=== PATIENT | female | born 1950 | race African-American/Black ===

== ENCOUNTER 2017-08-29 09:00 | Outpatient (CLI) | payer MEDICARE | END 2017-08-29 09:01 | disposition home or self-care (01) | LOC: BICMAMMO 09:00 | PROVIDERS: ATTEND Internal Medicine | DX: Z12.31 Encounter for screening mammogram for malignant neoplasm of breast (principal) | CPT/HCPCS: 77063; 77080; G0202; 77067 ==

== ENCOUNTER 2017-09-10 07:08 | Outpatient (CLI) | payer MEDICARE | END 2017-09-10 07:09 | disposition home or self-care (01) | LOC: BICMAMMO 07:08 | PROVIDERS: ATTEND Internal Medicine | DX: R92.2 Inconclusive mammogram (principal) | CPT/HCPCS: G0206; G0279 ==

== ENCOUNTER 2018-04-06 15:46 | Emergency (ER) | payer MEDICARE ==
[2018-04-06 16:19] LABS: #Basophils 0.1 thou/uL (0.0-0.2); #Eosinphils 0.4 thou/uL (0.0-0.7); #Monocytes 0.7 thou/uL (0.11-0.59); #Neutrophils 4.8 thou/uL (1.40-6.50); %Basophils 1.1 % (0.0-1.0); %Eosinophils 4.6 % (0.0-10.0); %Lymphocytes 25.5 % (21.0-51.0); %Monocytes 8.5 % (0.0-10.0); %Neutrophils 60.3 % (42.0-75.0); Hemoglobin 8.1 g/dL (12.0-16.0); Mean Corpuscular HGB CONC 31.7 g/dL (32.0-36.0); Mean Corpuscular Hemoglobin 24.4 pg (27.0-31.0); Mean Corpuscular Volume 77.2 fL (78.0-98.0); Mean Platelet Volume 7.9 fL (7.4-10.4); Platelet Count 413 thou/uL (130-400); RBC Distribution Width 18.6 % (11.5-14.5); White Blood Cell (WBC) Count 7.9 thou/uL (4.8-10.8)
[2018-04-06 16:37] LABS: ALT (SGPT) 8 U/L (8-55); AST (SGOT) 12 U/L (5-34); Alkaline Phosphatase 96 U/L (40-150); Anion Gap 16 mmol/L (10-20); BUN (Urea Nitrogen) 27 mg/dL (9.8-20.1); Bilirubin, Total 0.3 mg/dL (0.2-1.2); CK (CPK) 41 U/L (29-168); Calc. Creatinine Clearance 0 mL/min (70-130); Calcium 9.5 mg/dL (7.8-10.44); Carbon Dioxide 25 mmol/L (23-31); Chloride 99 mmol/L (98-107); Estimated GFR-MDRD 43; Globulin 3.5 g/dL (2.4-3.5); Glucose 318 mg/dL (80-115); Potassium 3.8 mmol/L (3.5-5.1); Protein, Total 7.5 g/dL (6.0-8.3); Sodium 136 mmol/L (136-145)
--- NOTE | 2018-04-06 16:39 | RAD ---
AP VIEW CHEST: 04/06/2018 HISTORY: Dizziness. Syncope. COMPARISON: 02/20/2015 FINDINGS: AP view chest demonstrates the lungs to be well aerated. No evidence of acute intrathoracic abnormal ity is seen. No evidence of effusions, pneumonia, or pneumothorax is seen. Previously noted pulmonary vascular congestion has resolved. IMPRESSION: Unremarkable anterior-posterior view chest. POS: [facility]
[2018-04-06 16:41] LABS: CKMB 0.8 ng/mL (0-6.6)
--- NOTE | 2018-04-06 18:11 | MRI ---
NONCONTRAST ENHANCED MRI BRAIN: HISTORY: Intermittent dizziness for one month. TECHNIQUE: We have been asked to perform an emergent, after-hours MRI of the brain. FINDINGS: Multiplanar, multisequence, noncontrast enhanced MR images of the brain demonstrate diffuse cortical atrophy and deep white matter ischemic changes. Numerous small areas of lacunar infarction are seen. The calvarium is unremarkable. No evidence of areas of diffusion restriction seen. No evidence of intraaxial or extraaxial mass lesion seen. Normal flow voids seen in the major intracranial vessels. The visualized portions of the parotid gland are unremarkable. There is an approximately 4.7 mm area of T2 signal increase seen in the posterior nasopharynx, compat ible with a Tornwaldt cyst. Some mild left frontal, left ethmoid, and bilateral sphenoid sinus mucosal thickening is seen. IMPRESSION: Cortical atrophy and deep white matter ischemic changes. POS: [facility]
[2018-04-06 18:53] LABS: Bilirubin Negative (Negative); Blood, Urine Negative (Negative); Clarity CLOUDY (Clear); Glucose, Urine (Dipstick) 250 mg/dL (Negative); Leukocyte Small (Negative); Nitrite Negative (Negative); Protein, Urine (Dipstick) 30 mg/dL (Neg-Trace); Specific Gravity, Urine 1.018 (1.002-1.036)
[2018-04-06 18:55] LABS: Bacteria/HPF None Seen HPF (None Seen); Hyaline Casts/LPF 7-10 HYALINE CAST LPF (0-3 Hyaline); Pathc Cast-AUWi Flag 2.32 (0-2.49); RBC/HPF 0-3 HPF (0-3); WBC/HPF 0-3 HPF (0-3)
== END 2018-04-06 19:50 | disposition home or self-care (01) ==
LOC: ERS 15:46
DX: R42 Dizziness and giddiness (principal); I11.0 Hypertensive heart disease with heart failure; I50.9 Heart failure, unspecified; E11.9 Type 2 diabetes mellitus without complications; E78.5 Hyperlipidemia, unspecified; F41.9 Anxiety disorder, unspecified; F17.210 Nicotine dependence, cigarettes, uncomplicated; M19.90 Unspecified osteoarthritis, unspecified site; Z79.82 Long term (current) use of aspirin; Z79.84 Long term (current) use of oral hypoglycemic drugs; Z79.899 Other long term (current) drug therapy
CPT/HCPCS: 70551; 71045; 80053; 81003; 81015; 82274; 82550; 82553; 83880; 84484; 85025; 93005

== ENCOUNTER 2018-09-03 12:20 | Outpatient (CLI) | payer MEDICARE ==
--- NOTE | 2018-09-03 14:45 | MRI ---
MRI LUMBAR SPINE WITHOUT CONTRAST: HISTORY: M48.062, spinal stenosis with neural claudication. Low back pain. COMPARISON: MRI from 2007. FINDINGS: There is a T2 hyperintense focus in the superior pole left kidney, likely a cyst, although it is inco mpletely evaluated. The aortic contour is nonaneurysmal. No retroperitoneal adenopathy. No marrow infiltrative signal. The conus medullaris terminates near the superior end plate of L1. Levels are as follows: L1-2: Normal disk. No neural foraminal or spinal canal narrowing. L2-3: Mild disk desiccation. Low-grade circumferential disk bulge. Mild facet arthropathy. There are effusions of both facet joints. Bilateral subforaminal posterior disk-osteophyte complexes cause moderate bilateral neural foraminal narrowing. No significant spinal canal narrowing. L3-4: Mild disk desiccation. Low-grade circumferential disk bulge. Mild hypertrophic facet degener ative changes. There is moderate bilateral neural foraminal narrowing. There is mild ligamentum fla vum hypertrophy. L4-5: Low-grade circumferential disk bulge. Bilateral subforaminal and posterior disk-osteophyte co mplexes. Moderate hypertrophic facet arthropathy. Moderate bilateral neural foraminal narrowing. T here is abutment above both traversing nerve roots. Mild ligamentum flavum hypertrophy. The spinal canal is narrowed to approximately 5 m with crowding of the nerve roots. L5-S1: There is a central linear fissure posteriorly. Moderate facet arthropathy. There is asymmet lee right paracentral lateral recess and extraarticular posterior disk-osteophyte complex. Moderate right and mild left-sided neural foraminal narrowing. IMPRESSION: Mild to moderate spondylosis as described above, worse in the lower lumbar spine. There is also some crowding of the nerve roots and spinal canal narrowing at L4-5. POS: [facility]
== END 2018-09-03 12:21 | disposition home or self-care (01) ==
LOC: BICMRI 12:20
PROVIDERS: ATTEND Nurse Practitioner Family
DX: M48.062 Spinal stenosis, lumbar region with neurogenic claudication (principal); M47.816 Spondylosis without myelopathy or radiculopathy, lumbar region
CPT/HCPCS: 72148

== ENCOUNTER 2019-03-05 12:18 | Outpatient (CLI) | payer MEDICARE ==
--- NOTE | 2019-03-05 13:31 | CT ---
CT HEAD WITHOUT CONTRAST: Date: 03/05/19 Multiple axial tomograms obtained through head without IV enhancement. INDICATION: Trauma. Subdural hematoma. Comparison made to MRI brain dated 04/06/18 and a prior head CT of 10/01/05. FINDINGS: Mild cortical volume loss. There is mild to moderate chronic ischemic white matter change. No evidenc e of intracranial hemorrhage identified. No evidence of subdural hematoma identified. There is opacification of the right sphenoid sinus, which has a similar appearance to the 2006 exam. The other paranasal sinuses are well aerated. IMPRESSION: 1. No acute intracranial process. 2. Opacification of right sphenoid sinus, which was present in 2006. POS: [facility]
== END 2019-03-05 12:19 | disposition home or self-care (01) ==
LOC: CT 12:18
PROVIDERS: ATTEND Neurological Surgery
DX: S06.5X0D Traumatic subdural hemorrhage without loss of consciousness, subsequent encounter (principal); J32.3 Chronic sphenoidal sinusitis
CPT/HCPCS: 70450

== ENCOUNTER 2019-03-24 15:24 | Inpatient (IN) | payer MEDICARE ==
[2019-03-24] MEDS ORDERED: Furosemide 40 MG/4 ML VIAL ONE (15:44)
--- NOTE | 2019-03-24 16:03 | RAD ---
Exam: Chest one view HISTORY:Dyspnea Comparison: 04/06/2018 FINDINGS: Cardiac silhouette:Cardiomegaly. Pulmonary vessels: Normal Costophrenic angles: Clear LUNGS: Patchy interstitial opacities in the right lung base. Pneumothorax: None Osseous abnormalities: None IMPRESSION: 1. Cardiomegaly. Patchy interstitial opacities in the right lung base. Correlate for volume overload/ edema.
[2019-03-24 16:07] LABS: #Eosinphils 0.3 thou/uL (0.0-0.7); #Lymphocytes 1.4 thou/uL (1.20-3.40); #Monocytes 0.4 thou/uL (0.11-0.59); #Neutrophils 4.8 thou/uL (1.40-6.50); %Basophils 0.3 % (0.0-1.0); %Eosinophils 4.6 % (0.0-10.0); %Lymphocytes 19.7 % (21.0-51.0); %Monocytes 6.4 % (0.0-10.0); %Neutrophils 69.1 % (42.0-75.0); Hemoglobin 11.3 g/dL (12.0-16.0); Mean Corpuscular HGB CONC 30.6 g/dL (32.0-36.0); Mean Corpuscular Hemoglobin 26.7 pg (27.0-31.0); Mean Corpuscular Volume 87.5 fL (78.0-98.0); Mean Platelet Volume 9.3 fL (7.4-10.4); Platelet Count 268 thou/uL (130-400); RBC Distribution Width 16.2 % (11.5-14.5); Red Blood Cell (RBC) Count 4.22 mill/uL (4.20-5.40); White Blood Cell (WBC) Count 6.9 thou/uL (4.8-10.8)
[2019-03-24 16:29] LABS: ALT (SGPT) 12 U/L (8-55); AST (SGOT) 19 U/L (5-34); Albumin 3.2 g/dL (3.4-4.8); Alkaline Phosphatase 142 U/L (40-150); Anion Gap 13 mmol/L (10-20); BUN (Urea Nitrogen) 22 mg/dL (9.8-20.1); Bilirubin, Total 0.3 mg/dL (0.2-1.2); Calc. Creatinine Clearance 0 mL/min (70-130); Calcium 8.8 mg/dL (7.8-10.44); Carbon Dioxide 29 mmol/L (23-31); Chloride 106 mmol/L (98-107); Estimated GFR-MDRD 49; Globulin 3.4 g/dL (2.4-3.5); Glucose 273 mg/dL (80-115); Potassium 5.1 mmol/L (3.5-5.1); Protein, Total 6.6 g/dL (6.0-8.3); Sodium 143 mmol/L (136-145)
[2019-03-24] MEDS ORDERED: Aspirin Chewable 81 MG TAB ONE (17:24)
[2019-03-24] MEDS ORDERED: Senokot S 8.6-50 MG TAB PO PRN (18:40)
[2019-03-24] MEDS ORDERED: Acetaminophen 325 MG TAB PO PRN (18:40)
[2019-03-24] MEDS ORDERED: Dextrose 5% in Water 1,000 ML IV PRN (18:42)
[2019-03-24] MEDS ORDERED: Dextrose 50% Abboject 50 ML SYRINGE SLOW IVP PRN (18:42)
[2019-03-24] MEDS ORDERED: ALPRAZolam 0.25 MG TAB PO PRN (18:51)
[2019-03-24 19:38] LABS: Troponin I 0.014 ng/mL (< 0.028)
[2019-03-24 21:31] LABS: Troponin I 0.016 ng/mL (< 0.028)
[2019-03-24 21:39] VITALS: BMI 30.1
[2019-03-24] MEDS: HumaLOG 300 UNITS/3 ML VIAL SC PRN (22:15)
[2019-03-24] MEDS: Heparin 5,000 UNITS/ML VIAL SC SCH (22:16)
[2019-03-24] MEDS: Rosuvastatin 20 MG TAB PO SCH (22:17)
--- NOTE | 2019-03-25 02:02 | HP ---
CHIEF COMPLAINT: Shortness of breath. HISTORY OF PRESENT ILLNESS: The patient is a 68-year-old female with a past medical history of systolic heart failure, hypertension and diabetes, who presents to the hospital with shortness of breath for the past few days. The patient states that she has actually been short of breath for the past couple of months. However, she woke up this morning, felt very short of breath and hoped that her shortness of breath would improve. However, it did not, so she came into the ER for further evaluation. She denies any chest pain or chest pressure. She did have some nausea, but no vomiting. She states that she also noticed increased lower extremity swelling for the past 3 or 4 days. The patient states that she ran out of her medications, especially her diuretic 3 or 4 days ago. She tried to call her PCP, however, she had to make an appointment and get more testing before she would get a refill. The patient also has been eating out quite a bit. The patient had a fall about a couple of months ago and this was a mechanical fall and she was taken to [facility] and was watched over 40 hours and then was discharged home. The patient stated that she had a brain bleed, questionable I am not really sure. However, she did state that she did see Dr. Sam for this. PAST MEDICAL HISTORY: 1. Cardiomyopathy. 2. Hypertension. 3. Diabetes. 4. High cholesterolemia. 5. Mild coronary artery disease. PAST SURGICAL HISTORY: She has had a hysterectomy, partial. ALLERGIES: SHE IS ALLERGIC TO SULFA DRUGS. MEDICATIONS: She takes: 1. Coreg 6.25 mg b.i.d. 2. Metformin 500 mg b.i.d. 3. Xanax 1 tab p.r.n. 4. Glipizide 5 mg b.i.d. 5. Diovan 40 mg daily. 6. She could not remember her diuretic. FAMILY HISTORY: Positive for heart disease. SOCIAL HISTORY: She denies any alcohol use or current smoking history. She is a former smoker. Denies any drug use. She is a full code. Lives alone. REVIEW OF SYSTEMS: All negative except for the ones mentioned above in the HPI. PHYSICAL EXAMINATION: VITAL SIGNS: Are as of the following; temperature of 98.8, pulse 79, respirations 16, O2 saturations 95% on room air and blood pressure 130/67. GENERAL: She is awake, alert, and oriented x3. Does not appear in any distress. HEENT: Normocephalic, atraumatic. No lymphadenopathy noted. Pupils are equal and reactive to light. CV: S1 and S2 present. No murmurs, rubs, or gallops. LUNGS: Mild crackles to bilateral lower bases. ABDOMEN: Soft and nontender. Bowel sounds are present x2. EXTREMITIES: She does have +1 lower extremity pitting edema. NEURO: No focal deficits noted. SKIN: No cuts, lesions, or bruises noted. LABORATORY RESULTS: WBCs of 6.9, hemoglobin of 11.3, hematocrit of 37.0, platelets of 268. Chemistry; sodium of 143, potassium of 5.1, BUN of 22, creatinine 1.29, glucose of 273. Troponin x2 were negative. Her BNP was 2727. Her chest x-ray was done, which indicated cardiomegaly and patchy interstitial opacities. ASSESSMENT AND PLAN: The patient is a very pleasant 68-year-old female who presents to the hospital with complaints of shortness of breath: 1. Acute hypoxic respiratory failure. Initially was found to be really hypoxic. Saturations were in the 80s. She was put on CPAP by the EMS and BiPAP in the ER. She was transitioned out of BiPAP and is doing fairly well on 2 L of nasal cannula and now she has been down to room air. She was given Lasix IV and she appears to be more comfortable. She denies any coughing, any fevers or chills at home. However, her chest x-ray did show some possible interstitial infiltrates. I will go ahead and start her on some antibiotics for community-acquired pneumonia. Also, I did review her previous echocardiogram, this was back in 2014 and she states that she has not followed up with any roller mechanic. At that time, her echo did indicate 20-25% was her EF. I will repeat an echocardiogram on this patient. Currently, her troponins x2 are negative. I will also consult Cardiology to come by and see her. I will continue her other home medications. 2. Acute kidney injury. We will continue to monitor. This could be possibly cardiorenal and diuresing her might improve her creatinine. 3. Hypertension. Again, I will continue her home medications. 4. She has a history of subdural hematoma. This was from the fall 2 months ago. Again, she currently denies any symptoms. We will continue to monitor her. 5. Deep venous thrombosis prophylaxis. We will put the patient on some SCDs. Job ID: [id number]
[2019-03-25 05:18] LABS: #Basophils 0.1 thou/uL (0.0-0.2); #Eosinphils 0.3 thou/uL (0.0-0.7); #Lymphocytes 1.9 thou/uL (1.20-3.40); #Monocytes 0.6 thou/uL (0.11-0.59); #Neutrophils 4.3 thou/uL (1.40-6.50); %Basophils 0.7 % (0.0-1.0); %Eosinophils 4.5 % (0.0-10.0); %Monocytes 7.8 % (0.0-10.0); %Neutrophils 60.1 % (42.0-75.0); Hemoglobin 10.3 g/dL (12.0-16.0); Mean Corpuscular HGB CONC 30.9 g/dL (32.0-36.0); Mean Corpuscular Volume 87.4 fL (78.0-98.0); Mean Platelet Volume 9.4 fL (7.4-10.4); Platelet Count 250 thou/uL (130-400); RBC Distribution Width 15.7 % (11.5-14.5); Red Blood Cell (RBC) Count 3.82 mill/uL (4.20-5.40); White Blood Cell (WBC) Count 7.2 thou/uL (4.8-10.8)
[2019-03-25 05:29] LABS: Anion Gap 11 mmol/L (10-20); BUN (Urea Nitrogen) 23 mg/dL (9.8-20.1); Calc. Creatinine Clearance 60 mL/min (70-130); Calcium 8.6 mg/dL (7.8-10.44); Carbon Dioxide 31 mmol/L (23-31); Chloride 101 mmol/L (98-107); Estimated GFR-MDRD 62; Glucose 198 mg/dL (80-115); Potassium 4.1 mmol/L (3.5-5.1); Sodium 139 mmol/L (136-145)
[2019-03-25] MEDS: HumaLOG 300 UNITS/3 ML VIAL SC PRN (06:21)
[2019-03-25] MEDS: Furosemide 40 MG/4 ML VIAL SLOW IVP SCH ×2 (06:21→14:51)
[2019-03-25] MEDS ORDERED: Carvedilol 25 MG TAB PO SCH (09:00)
[2019-03-25] MEDS: Heparin 5,000 UNITS/ML VIAL SC SCH ×3 (09:43→20:18)
[2019-03-25] MEDS: Aspirin 325 mg Enteric Coated Tablet PO SCH (09:43)
--- NOTE | 2019-03-25 11:19 | CON ---
DATE OF CONSULTATION: 03/25/2019 ADMITTING PHYSICIAN: Dr. Zurita of the Hospitalist Service. CONSULTING PHYSICIAN: Dr. Hand, Cardiology. PRIMARY CARE PHYSICIAN: Dr. Lary Henry. REASON FOR CONSULTATION: Acute CHF. HISTORY OF PRESENT ILLNESS: Ms. Mercer is a pleasant 68-year-old female with a past medical history of a nonischemic cardiomyopathy, who presented to the hospital complaining of dyspnea and edema and was found to be in acute congestive heart failure. The patient has previously been seen by Dr. Jonatan Cox in the past. She has a history of nonischemic cardiomyopathy diagnosed in 2014 with EF 10% to 15% at that time. She also underwent left heart catheterization at that time showing vqci-dg-ldtrsivk coronary artery disease. Specifically, she had a 20% LAD proximal stenosis and 90% first diagonal lesion, 20% proximal stenosis and 30% mid stenosis to her left circumflex and 30% distal RCA stenosis. She wore a LifeVest and was put on medical management. Her EF improved to 50% to 55%. She was lost to follow up in 2016 and has only been seeing Dr. Henry since that time. She states she has been doing well until July of last year. She says about that time she started having intermittent edema and more dyspnea on exertion. She did not address this with Dr. Henry. She reports approximately a month ago her edema becoming persistent and her shortness of breath progressively getting worse. She then says in the last 2 to 3 days, she developed significant orthopnea bring her to the emergency room. Upon arrival, chest x-ray showed bilateral pulmonary vascular congestion. Her BNP was elevated at greater than 2000. She has been placed on IV Lasix and is diuresing well, although I's and O's are not recorded. PAST MEDICAL HISTORY: 1. Chronic systolic CHF. 2. Nonischemic cardiomyopathy. 3. Dqpb-ql-snacwssj coronary artery disease. 4. Hypertension. 5. Hyperlipidemia. 6. Diabetes mellitus, type 2. PAST SURGICAL HISTORY: Hysterectomy. ALLERGIES: ALLERGIC TO SULFA DRUGS. CURRENT MEDICATIONS: 1. Lasix 40 mg IV b.i.d. 2. Xanax 0.25 mg p.r.n. 3. Aspirin 325 mg daily. 4. Tylenol p.r.n. 5. Vitamin D3 of 2000 units daily. 6. Insulin per sliding scale. 7. Levaquin 500 mg daily. 8. Crestor 20 mg at bedtime. 9. Coreg 25 mg b.i.d. REVIEW OF SYSTEMS: In general, 10-point review of systems discussed with the patient, it is negative except per HPI and past medical history as mentioned above. PHYSICAL EXAMINATION: GENERAL: This is a pleasant female, who is in no acute distress. She is sitting up in bed, resting comfortably and conversing easily. HEENT: Head is atraumatic and normocephalic. Mucous membranes are moist. She does have an O2 nasal cannula in place. NECK: Supple with no bruits noted. She has mild JVD. CHEST: Reveals bilateral rales at the bases. Otherwise clear with no wheezing. CARDIOVASCULAR: Regular rate and rhythm. Normal S1 and S2. No murmurs, rubs, or gallops. ABDOMEN: Soft, nontender to palpation, and nondistended. EXTREMITIES: Show no clubbing or cyanosis. She has 2+ bilateral lower extremity edema. SKIN: Warm and dry. PSYCHIATRIC: Mood and affect are appropriate. MUSCULOSKELETAL: Not assessed as the patient is lying in bed. LABORATORY DATA: CBC was reviewed, shows the patient to be mildly anemic with hemoglobin 10.3, hematocrit 33. BNP was elevated at 2727. BNP was within normal limits except for elevated glucose level. Troponins are negative x3. Telemetry shows the patient to currently be in normal sinus rhythm without ectopy. Baseline EKG shows anterior Q-waves. IMPRESSION: 1. Acute on chronic systolic congestive heart failure. 2. History of nonischemic cardiomyopathy. 3. Hypertension. 4. Hyperlipidemia. 5. History of moderate coronary artery disease. 6. Diabetes mellitus, type 2. At this time, the patient is stable. She is diuresing well on her IV Lasix. I would continue this. She has an echo ordered, which we will review later today and see if her EF has dropped back down. She may need a LifeVest again at the time of discharge. She will also need repeat evaluation for ischemia. She has had no symptoms of chest pain and we could consider outpatient PET study once she is diuresed. Otherwise from a medication standpoint, I will continue her Lasix and carvedilol. I will continue her statin. She does not have an LEENA or an ARB allergy that I am aware of, so this needs to be added. The patient understands and agrees to the plan of care. Job ID: [id number]
[2019-03-25] MEDS: Rosuvastatin 20 MG TAB PO SCH (20:18)
[2019-03-25] MEDS: Carvedilol 25 MG TAB PO SCH (20:18)
--- NOTE | 2019-03-25 20:54 | CON ---
DATE OF CONSULTATION: REASON FOR CONSULTATION: Acute on chronic systolic heart failure. HISTORY OF PRESENT ILLNESS: Ms. Mercer is a pleasant 68-year-old woman who previously was seen by Dr. Jonatan Cox. She no longer wants to see Dr. Cox. She recently presented with increased shortness of breath and lower extremity edema. She has a previous history of cardiomyopathy that resolved. She also has mfvb-gc-rannyrio coronary artery disease in the past. PAST MEDICAL HISTORY: Please see full note by Rupa Shell for details. PHYSICAL EXAMINATION: GENERAL: Patient is a pleasant female who is in no acute distress. The patient appears their stated age. VITAL SIGNS: Blood pressure 154/71, pulse 69, and temperature 98. NEUROLOGIC: The patient is alert and oriented x3 with no focal neurologic deficits. HEENT: Sclerae without icterus. Mouth has moist mucous membranes with normal pallor. NECK: No JVD. Carotid upstroke brisk. No bruits bilaterally. LUNGS: Crackles noted bilaterally. BACK: No scoliosis or kyphosis. CARDIAC: Regular rate and rhythm with normal S1 and S2. No S3 or S4 noted. No significant rubs, murmurs, thrills, or gallops noted throughout the precordium. PMI is not displaced. There is no parasternal heave. ABDOMEN: Soft, nontender, nondistended. No peritoneal signs present. No hepatosplenomegaly. No abnormal striae. EXTREMITIES: 2+ femoral and 2+ dorsalis pedis pulses. No cyanosis, clubbing, or edema. SKIN: No gross abnormalities. PERTINENT LABORATORY DATA: BNP greater than 2000, hemoglobin 10.3, creatinine 1.06. Echo Doppler shows LVEF 25%. LV appears dilated. Moderate MR present. IMPRESSION: New onset systolic heart failure. RECOMMENDATIONS: 1. Continue carvedilol. 2. Decrease aspirin 81 q.a.m. 3. Lasix IV. 4. Add low-dose LEENA inhibitor therapy. 5. LifeVest request. PLAN: Plan is to diurese. Patient appears to become euvolemic. We then proceed with an outpatient stress study. Job ID: [id number]
[2019-03-26] MEDS: Furosemide 40 MG/4 ML VIAL SLOW IVP SCH (05:39)
[2019-03-26] MEDS: Carvedilol 25 MG TAB PO SCH ×2 (10:07→19:40)
[2019-03-26] MEDS: Aspirin 325 mg Enteric Coated Tablet PO SCH (10:08)
[2019-03-26] MEDS: Heparin 5,000 UNITS/ML VIAL SC SCH ×3 (10:10→19:40)
[2019-03-26] MEDS: HumaLOG 300 UNITS/3 ML VIAL SC PRN ×2 (10:13→17:41)
[2019-03-26 10:34] LABS: Hemoglobin A1c 7.7 % (4.0-6.0)
[2019-03-26 10:45] LABS: Anion Gap 13 mmol/L (10-20); BUN (Urea Nitrogen) 20 mg/dL (9.8-20.1); Calc. Creatinine Clearance 64 mL/min (70-130); Calcium 8.9 mg/dL (7.8-10.44); Carbon Dioxide 32 mmol/L (23-31); Chloride 98 mmol/L (98-107); Estimated GFR-MDRD 69; Glucose 243 mg/dL (80-115); Potassium 3.6 mmol/L (3.5-5.1); Sodium 139 mmol/L (136-145)
[2019-03-26] MEDS ORDERED: HumaLOG 300 UNITS/3 ML VIAL SC SCH (12:00)
--- NOTE | 2019-03-26 15:58 | PDOC.CTH ---
Cardiology Progress Note - Subjective The pt seen and examined. No overnight events. No cardiac complaints. - Objective Vital Signs Temp Pulse Pulse Resp BP BP Pulse Ox 03/26/19 15:08 71 146/69 H 03/26/19 12:00 98.2 F 71 16 146/69 H 93 L 03/26/19 08:00 98.2 F 69 18 169/78 H 96 Weight 166 lb 6.4 oz 03/25/19 03/26/19 03/27/19 06:59 06:59 06:59 Intake Total 200 Output Total 500 Balance -300 - Physical Examination General/Neuro: alert & oriented x3 Neck: no JVD present Lungs: other: (diminished at bases) Heart: RRR Abdomen: soft Extremities: other: (2+ pitting edema to blat foot) - Telemetry Telemetry Rhythm: SR - Labs Result Diagrams: 03/25/19 04:55 03/26/19 10:00 Troponin/CKMB Troponin I 0.016 ng/mL (< 0.028) 03/24/19 21:36 - Assessment/Plan 1. Acute on Chronic systolic HF with EF 30-35% on 03/25/2019 - EF in 2017 was 50 -55%; On Lasix IV BID, Coreg; will start Lisinopril 10mg qHS; 2. Non-ischemic CMY with EF 30-35% on 03/25/2019 - d/c with LifeVest 3. Mild CAD with cath in 2014 - stable; on BBlocker, ASA, Statin 4. DM type 2 MAR reviewed * d/c home with LifeVest Pt. seen and eval. by me. I agree with the A/P by the [employer]. We have discussed the pt. [email or web address] Review of Systems - Review of Systems Constitutional: reports: no symptoms reported EENTM: reports: no symptoms reported Respiratory: reports: no symptoms reported Cardiac (ROS): reports: no symptoms reported ABD/GI: reports: no symptoms reported : reports: no symptoms reported Musculoskeletal: reports: no symptoms reported
--- NOTE | 2019-03-26 17:22 | PDOC.PN ---
- Subjective Encounter Start Date: 03/26/19 Encounter Start Time: 11:45 Subjective: pt up in bed gets sob on ambulation - Objective Resuscitation Status - Order Detail: 03/24/19 18:40 Resuscitation Status Routine Resuscitation Status: FULL: Full Resuscitation Vital Signs & Weight: Vital Signs (12 hours) Temp Pulse Pulse Resp BP BP Pulse Ox 03/26/19 15:08 71 146/69 H 03/26/19 12:00 98.2 F 71 16 146/69 H 93 L 03/26/19 08:00 98.2 F 69 18 169/78 H 96 Weight Weight 166 lb 6.4 oz I&O: 03/25/19 03/26/19 03/27/19 06:59 06:59 06:59 Intake Total 200 Output Total 500 Balance -300 Result Diagrams: 03/25/19 04:55 03/26/19 10:00 Additional Labs: Accuchecks 03/26/19 03/26/19 03/25/19 11:02 05:37 20:44 POC Glucose 234 H 203 H 293 H 03/25/19 17:02 POC Glucose 250 H Phys Exam - Physical Examination Neck: no nodes, no JVD, supple, full ROM Respiratory: no wheezing, no rales, no rhonchi, clear to auscultation bilateral Cardiovascular: RRR, no significant murmur, no rub, gallop, irregular Gastrointestinal: soft, non-tender, no distention, positive bowel sounds Dx/Plan (1) Acute systolic CHF (congestive heart failure) Code(s): I50.21 - ACUTE SYSTOLIC (CONGESTIVE) HEART FAILURE Status: Acute (2) Coronary artery disease Code(s): I25.10 - ATHSCL HEART DISEASE OF [place] CORONARY ARTERY W/O ANG PCTRS Status: Acute (3) Diabetes mellitus Code(s): E11.9 - TYPE 2 DIABETES MELLITUS WITHOUT COMPLICATIONS Status: Acute (4) Dyslipidemia Code(s): E78.5 - HYPERLIPIDEMIA, UNSPECIFIED Status: Acute (5) HTN (hypertension) Code(s): I10 - ESSENTIAL (PRIMARY) HYPERTENSION Status: Acute - Plan will decrease lasix to daily, pt's oxygen at rest is 97-98% on -: ambulation it is 88% she will need oxygen at home -: pt has a hx of smoking -: pt will need life vest * . Review of Systems - Review of Systems Respiratory: Shortness of Breath. negative: Cough, Dry, Hemoptysis, SOB with Excertion, Pleuritic Pain, Sputum, Wheezing Cardiovascular: negative: chest pain, palpitations, orthopnea, paroxysmal nocturnal dyspnea, edema, light headedness, other Gastrointestinal: negative: Nausea, Vomiting, Abdominal Pain, Diarrhea, Constipation, Melena, Hematochezia, Other - Medications/Allergies Allergies/Adverse Reactions: Allergies Allergy/AdvReac Type Severity Reaction Status Date / Time Sulfa (Sulfonamide Allergy Unknown Verified 03/25/19 00:16 Antibiotics) Medications: Current Medications Acetaminophen (Tylenol) 650 mg PO Q4H PRN PRN Reason: Headache/Fever/Mild Pain (1-3) Alprazolam (Xanax) 0.25 mg PO DAILY PRN PRN Reason: Anxiety Aspirin (Ecotrin) 81 mg PO DAILY [facility] Carvedilol (Coreg) 25 mg PO BID [facility] Last Admin: 03/26/19 10:07 Dose: 25 mg Cholecalciferol (Vitamin D3) 2,000 units PO DAILY [facility] Last Admin: 03/26/19 10:07 Dose: 2,000 units Dextrose/Water (Dextrose 50%) 25 gm SLOW IVP PRN PRN PRN Reason: Hypoglycemia Furosemide (Lasix) 40 mg PO DAILY-AC [facility] Furosemide (Lasix) 40 mg SLOW IVP DAILY [facility] Glipizide (Glucotrol Xl) 5 mg PO BID-WM [facility] Glucagon (Glucagon) 1 mg IM PRN PRN PRN Reason: Hypoglycemia Heparin Sodium (Porcine) (Heparin) 5,000 units SC TID [facility] Last Admin: 03/26/19 14:40 Dose: 5,000 units Dextrose/Water (D5w) 1,000 mls @ 0 mls/hr IV .Q0M PRN PRN Reason: Hypoglycemia Levofloxacin 500 mg/ Device 100 mls @ 100 mls/hr IVPB Q24HR [facility] Last Admin: 03/25/19 20:19 Dose: 100 mls Insulin Human Lispro (Humalog) 0 units SC .MILD SLIDING SCALE PRN PRN Reason: Mild Correctional Scale Last Admin: 03/26/19 10:13 Dose: 3 unit Rosuvastatin Calcium (Crestor) 20 mg PO [facility] Last Admin: 03/25/19 20:18 Dose: 20 mg Senna/Docusate Sodium (Senokot S) 2 tab PO BID PRN PRN Reason: Constipation Sodium Chloride (Flush - Normal Saline) 10 ml IVF Q12HR [facility] Last Admin: 03/26/19 10:09 Dose: 10 ml Sodium Chloride (Flush - Normal Saline) 10 ml IVF PRN PRN PRN Reason: Saline Flush
--- NOTE | 2019-03-26 17:24 | PDOC.PN ---
- Subjective Encounter Start Date: 03/25/19 Encounter Start Time: 13:00 Subjective: pt up in bed feels well - Objective Resuscitation Status - Order Detail: 03/24/19 18:40 Resuscitation Status Routine Resuscitation Status: FULL: Full Resuscitation Vital Signs & Weight: Vital Signs (12 hours) Temp Pulse Pulse Resp BP BP Pulse Ox 03/26/19 15:08 71 146/69 H 03/26/19 12:00 98.2 F 71 16 146/69 H 93 L 03/26/19 08:00 98.2 F 69 18 169/78 H 96 Weight Weight 166 lb 6.4 oz I&O: 03/25/19 03/26/19 03/27/19 06:59 06:59 06:59 Intake Total 200 Output Total 500 Balance -300 Result Diagrams: 03/25/19 04:55 03/26/19 10:00 Additional Labs: Accuchecks 03/26/19 03/26/19 03/25/19 11:02 05:37 20:44 POC Glucose 234 H 203 H 293 H 03/25/19 17:02 POC Glucose 250 H Phys Exam - Physical Examination Neck: no nodes, no JVD, supple, full ROM Respiratory: no wheezing, no rales, no rhonchi, clear to auscultation bilateral Cardiovascular: RRR, no significant murmur, no rub, gallop, irregular Gastrointestinal: soft, non-tender, no distention, positive bowel sounds Musculoskeletal: no edema, pulses present, edema present Dx/Plan (1) Acute systolic CHF (congestive heart failure) Code(s): I50.21 - ACUTE SYSTOLIC (CONGESTIVE) HEART FAILURE Status: Acute (2) Coronary artery disease Code(s): I25.10 - ATHSCL HEART DISEASE OF [place] CORONARY ARTERY W/O ANG PCTRS Status: Acute (3) Diabetes mellitus Code(s): E11.9 - TYPE 2 DIABETES MELLITUS WITHOUT COMPLICATIONS Status: Acute (4) Dyslipidemia Code(s): E78.5 - HYPERLIPIDEMIA, UNSPECIFIED Status: Acute (5) HTN (hypertension) Code(s): I10 - ESSENTIAL (PRIMARY) HYPERTENSION Status: Acute - Plan pt up in bed feels well, will continue lasix bid for now -: echo indicated depressed ef from her last visit. -: pt's blood sugars are elevated will change diet * . Review of Systems - Review of Systems Respiratory: Shortness of Breath Cardiovascular: negative: chest pain, palpitations, orthopnea, paroxysmal nocturnal dyspnea, edema, light headedness, other Gastrointestinal: negative: Nausea, Vomiting, Abdominal Pain, Diarrhea, Constipation, Melena, Hematochezia, Other - Medications/Allergies Allergies/Adverse Reactions: Allergies Allergy/AdvReac Type Severity Reaction Status Date / Time Sulfa (Sulfonamide Allergy Unknown Verified 03/25/19 00:16 Antibiotics) Medications: Current Medications Acetaminophen (Tylenol) 650 mg PO Q4H PRN PRN Reason: Headache/Fever/Mild Pain (1-3) Alprazolam (Xanax) 0.25 mg PO DAILY PRN PRN Reason: Anxiety Aspirin (Ecotrin) 81 mg PO DAILY COUNTS INCLUDE 234 BEDS AT THE [facility] Carvedilol (Coreg) 25 mg PO BID COUNTS INCLUDE 234 BEDS AT THE [facility] Last Admin: 03/26/19 10:07 Dose: 25 mg Cholecalciferol (Vitamin D3) 2,000 units PO DAILY COUNTS INCLUDE 234 BEDS AT THE [facility] Last Admin: 03/26/19 10:07 Dose: 2,000 units Dextrose/Water (Dextrose 50%) 25 gm SLOW IVP PRN PRN PRN Reason: Hypoglycemia Furosemide (Lasix) 40 mg PO DAILY-AC COUNTS INCLUDE 234 BEDS AT THE [facility] Furosemide (Lasix) 40 mg SLOW IVP DAILY COUNTS INCLUDE 234 BEDS AT THE [facility] Glipizide (Glucotrol Xl) 5 mg PO BID-WM COUNTS INCLUDE 234 BEDS AT THE [facility] Glucagon (Glucagon) 1 mg IM PRN PRN PRN Reason: Hypoglycemia Heparin Sodium (Porcine) (Heparin) 5,000 units SC TID COUNTS INCLUDE 234 BEDS AT THE [facility] Last Admin: 03/26/19 14:40 Dose: 5,000 units Dextrose/Water (D5w) 1,000 mls @ 0 mls/hr IV .Q0M PRN PRN Reason: Hypoglycemia Levofloxacin 500 mg/ Device 100 mls @ 100 mls/hr IVPB Q24HR COUNTS INCLUDE 234 BEDS AT THE [facility] Last Admin: 03/25/19 20:19 Dose: 100 mls Insulin Human Lispro (Humalog) 0 units SC .MILD SLIDING SCALE PRN PRN Reason: Mild Correctional Scale Last Admin: 03/26/19 10:13 Dose: 3 unit Rosuvastatin Calcium (Crestor) 20 mg PO HS COUNTS INCLUDE 234 BEDS AT THE [facility] Last Admin: 03/25/19 20:18 Dose: 20 mg Senna/Docusate Sodium (Senokot S) 2 tab PO BID PRN PRN Reason: Constipation Sodium Chloride (Flush - Normal Saline) 10 ml IVF Q12HR [facility] Last Admin: 03/26/19 10:09 Dose: 10 ml Sodium Chloride (Flush - Normal Saline) 10 ml IVF PRN PRN PRN Reason: Saline Flush
[2019-03-26] MEDS: Rosuvastatin 20 MG TAB PO SCH (19:39)
[2019-03-26] MEDS ORDERED: GLIPIZIDE 5 MG PO SCH (21:00)
[2019-03-26] MEDS ORDERED: Lisinopril 10 MG TAB PO SCH (21:00)
[2019-03-27 06:34] LABS: Anion Gap 11 mmol/L (10-20); BUN (Urea Nitrogen) 21 mg/dL (9.8-20.1); Calc. Creatinine Clearance 75 mL/min (70-130); Calcium 8.5 mg/dL (7.8-10.44); Carbon Dioxide 31 mmol/L (23-31); Chloride 101 mmol/L (98-107); Estimated GFR-MDRD 82; Glucose 91 mg/dL (80-115); Potassium 3.3 mmol/L (3.5-5.1); Sodium 140 mmol/L (136-145)
[2019-03-27] MEDS ORDERED: Furosemide 40 MG TAB PO SCH (07:30)
[2019-03-27] MEDS: Aspirin 81 mg Enteric Coated Tablet PO SCH (08:56)
[2019-03-27] MEDS: Carvedilol 25 MG TAB PO SCH ×2 (08:57→20:52)
[2019-03-27] MEDS: Heparin 5,000 UNITS/ML VIAL SC SCH ×3 (08:58→20:52)
[2019-03-27] MEDS: Furosemide 40 MG/4 ML VIAL SLOW IVP SCH (09:00)
[2019-03-27] MEDS ORDERED: Potassium Chloride 20 MEQ TAB PO SCH (09:45)
[2019-03-27] MEDS: HumaLOG 300 UNITS/3 ML VIAL SC PRN (11:09)
--- NOTE | 2019-03-27 12:33 | PQF ---
KARSON BARRETO BARBIE SCHMIDT [id number] CLINICAL DOCUMENTATION IMPROVEMENT CLARIFICATION FORM: ICD-10 Updated PLEASE DO AN ADDENDUM TO THE PROGRESS NOTE WITH ANY DOCUMENTATION UPDATES OR ADDITIONS AND CARRY THROUGH TO DC SUMMARY. THANK YOU. DATE: 03/27 ATTN: DR. BARBIE BILL Please exercise your independent, professional judgment in responding to the clarification form. Clinical indicators are provided on the bottom of this form for your review. Please check appropriate box(s) to clarify if the following diagnosis has been ruled in or ruled out: COMMUNITY ACQUIRED PNEUMONIA [ ] Ruled in diagnosis [ ] Continue to treat [ ] Resolved [ x ] Ruled out diagnosis [ ] Other diagnosis [ ] Unable to determine In addition, please specify: Present on Admission (POA): [ ] Yes [ x ] No [ ] Unable to determine it was prophylactic For continuity of documentation, please document condition throughout progress notes and discharge summary. Thank You. CLINICAL INDICATORS - SIGNS / SYMPTOMS / LABS CXR 03/24: PATCHY INTERSTITIAL OPACITIES IN THE RIGHT LUNG BASE. CORRELATE FOR VOLUME OVERLOAD/EDEMA H&P (FLY) 03/24: ASSESSMENT & PLAN: 1) ...HER CXR DID SHOW SOME POSSIBLE INTERSTITIAL INFILTRATES. I WILL GO AHEAD AND START HER ON SOME ANTIBIOTICS FOR COMMUNITY ACQUIRED PNEUMONIA NO FURTHER MENTION OF PNEUMONIA TO DATE RISKS: ACUTE HYPOXIC RESPIRATORY FAILURE ACUTE ON CHRONIC SYSTOLIC CHF TREATMENT: IV DIURETIC (LASIX 03/24 - 03/27; CHANGED TO PO 03/27) IV ANTIBIOTIC (LEVAQUIN 03/24 - PRESENT) SUPPLEMENTAL OXYGEN (03/24 - PRESENT, 1-2L NC) THANK YOU! Coreen (This form is maintained as a part of the permanent medical record) 2014 [employer] All Rights Reserved Coreen Stanley RN, BSN [email or web address] Office: [phone] [facility]
[2019-03-27] MEDS ORDERED: Furosemide 40 MG/4 ML VIAL SLOW IVP SCH (14:00)
--- NOTE | 2019-03-27 15:11 | PDOC.PN ---
- Subjective Encounter Start Date: 03/27/19 Encounter Start Time: 10:15 Subjective: pt up in bed feels better - Objective Resuscitation Status - Order Detail: 03/24/19 18:40 Resuscitation Status Routine Resuscitation Status: FULL: Full Resuscitation Vital Signs & Weight: Vital Signs (12 hours) Temp Pulse Resp BP Pulse Ox 03/27/19 12:00 98.6 F 70 18 148/73 H 97 03/27/19 08:00 97.8 F 70 18 151/68 H 97 03/27/19 03:45 98.3 F 66 20 156/72 H 99 Weight Weight 165 lb 12.8 oz I&O: 03/26/19 03/27/19 03/28/19 06:59 06:59 06:59 Intake Total 200 1050 120 Output Total 500 1500 Balance -300 -450 120 Result Diagrams: 03/25/19 04:55 03/27/19 05:46 Additional Labs: Accuchecks 03/27/19 03/27/19 03/26/19 11:10 05:26 20:44 POC Glucose 194 H 99 213 H 03/26/19 17:35 POC Glucose 238 H Phys Exam - Physical Examination Neck: no nodes, no JVD, supple, full ROM Respiratory: no wheezing, no rales, no rhonchi, wheezing present, clear to auscultation bilateral Cardiovascular: RRR, no significant murmur, no rub, gallop, irregular Gastrointestinal: soft, non-tender, no distention, positive bowel sounds Musculoskeletal: edema present Dx/Plan (1) Acute systolic CHF (congestive heart failure) Code(s): I50.21 - ACUTE SYSTOLIC (CONGESTIVE) HEART FAILURE Status: Acute (2) Coronary artery disease Code(s): I25.10 - ATHSCL HEART DISEASE OF [place] CORONARY ARTERY W/O ANG PCTRS Status: Acute (3) Diabetes mellitus Code(s): E11.9 - TYPE 2 DIABETES MELLITUS WITHOUT COMPLICATIONS Status: Acute (4) Dyslipidemia Code(s): E78.5 - HYPERLIPIDEMIA, UNSPECIFIED Status: Acute (5) HTN (hypertension) Code(s): I10 - ESSENTIAL (PRIMARY) HYPERTENSION Status: Acute - Plan will continue iv lasix for now -: pt to have a life vest -: she will need home oxygen * . Review of Systems - Review of Systems Respiratory: negative: Cough, Dry, Shortness of Breath, Hemoptysis, SOB with Excertion, Pleuritic Pain, Sputum, Wheezing Cardiovascular: negative: chest pain, palpitations, orthopnea, paroxysmal nocturnal dyspnea, edema, light headedness, other Gastrointestinal: negative: Nausea, Vomiting, Abdominal Pain, Diarrhea, Constipation, Melena, Hematochezia, Other - Medications/Allergies Allergies/Adverse Reactions: Allergies Allergy/AdvReac Type Severity Reaction Status Date / Time Sulfa (Sulfonamide Allergy Unknown Verified 03/25/19 00:16 Antibiotics) Medications: Current Medications Acetaminophen (Tylenol) 650 mg PO Q4H PRN PRN Reason: Headache/Fever/Mild Pain (1-3) Alprazolam (Xanax) 0.25 mg PO DAILY PRN PRN Reason: Anxiety Aspirin (Ecotrin) 81 mg PO DAILY [facility] Last Admin: 03/27/19 08:56 Dose: 81 mg Carvedilol (Coreg) 25 mg PO BID [facility] Last Admin: 03/27/19 08:57 Dose: 25 mg Cholecalciferol (Vitamin D3) 2,000 units PO DAILY [facility] Last Admin: 03/27/19 08:58 Dose: 2,000 units Dextrose/Water (Dextrose 50%) 25 gm SLOW IVP PRN PRN PRN Reason: Hypoglycemia Furosemide (Lasix) 40 mg SLOW IVP DAILY [facility] Last Admin: 03/27/19 09:00 Dose: Not Given Glipizide (Glucotrol Xl) 5 mg PO BID-[facility] Last Admin: 03/27/19 08:57 Dose: 5 mg Glucagon (Glucagon) 1 mg IM PRN PRN PRN Reason: Hypoglycemia Heparin Sodium (Porcine) (Heparin) 5,000 units SC TID [facility] Last Admin: 03/27/19 14:01 Dose: 5,000 units Dextrose/Water (D5w) 1,000 mls @ 0 mls/hr IV .Q0M PRN PRN Reason: Hypoglycemia Insulin Human Lispro (Humalog) 0 units SC .MILD SLIDING SCALE PRN PRN Reason: Mild Correctional Scale Last Admin: 03/27/19 11:09 Dose: 2 unit Lisinopril (Zestril) 10 mg PO [facility] Last Admin: 03/26/19 19:40 Dose: 10 mg Rosuvastatin Calcium (Crestor) 20 mg PO [facility] Last Admin: 03/26/19 19:39 Dose: 20 mg Senna/Docusate Sodium (Senokot S) 2 tab PO BID PRN PRN Reason: Constipation Last Admin: 03/27/19 11:18 Dose: 2 tab Sodium Chloride (Flush - Normal Saline) 10 ml IVF Q12HR [facility] Last Admin: 03/27/19 08:58 Dose: 10 ml Sodium Chloride (Flush - Normal Saline) 10 ml IVF PRN PRN PRN Reason: Saline Flush Last Admin: 03/27/19 14:01 Dose: 10 ml
[2019-03-27] MEDS: Lisinopril 10 MG TAB PO SCH (20:52)
[2019-03-27] MEDS: Rosuvastatin 20 MG TAB PO SCH (20:52)
[2019-03-28] MEDS: Aspirin 81 mg Enteric Coated Tablet PO SCH (09:18)
[2019-03-28] MEDS: Heparin 5,000 UNITS/ML VIAL SC SCH ×3 (09:18→21:19)
[2019-03-28] MEDS: Lisinopril 10 MG TAB PO SCH ×2 (09:19→21:19)
[2019-03-28] MEDS: Carvedilol 25 MG TAB PO SCH ×2 (09:21→21:20)
[2019-03-28] MEDS: Furosemide 40 MG/4 ML VIAL SLOW IVP SCH (09:21)
[2019-03-28] MEDS: HumaLOG 300 UNITS/3 ML VIAL SC PRN ×2 (11:31→18:10)
[2019-03-28] MEDS ORDERED: ISOVUE-370 76%-LOCM 1 ML ONE (12:31)
--- NOTE | 2019-03-28 15:43 | PDOC.PN ---
- Subjective Encounter Start Date: 03/28/19 Encounter Start Time: 10:55 Subjective: pt up in bed no complains - Objective Resuscitation Status - Order Detail: 03/24/19 18:40 Resuscitation Status Routine Resuscitation Status: FULL: Full Resuscitation Vital Signs & Weight: Vital Signs (12 hours) Temp Pulse Resp BP BP BP Pulse Ox 03/28/19 15:29 99.1 F 70 23 H 150/65 H 96 03/28/19 11:25 98.8 F 67 20 143/67 H 96 03/28/19 09:19 143/69 H 98 03/28/19 07:48 98.7 F 67 19 157/73 H 98 03/28/19 03:50 98.2 F 69 20 142/63 H 93 L Weight Weight 162 lb I&O: 03/27/19 03/28/19 03/29/19 06:59 06:59 06:59 Intake Total 1050 1200 Output Total 1500 2000 Balance -450 -800 Result Diagrams: 03/25/19 04:55 03/27/19 05:46 Additional Labs: Accuchecks 03/28/19 03/28/19 03/27/19 11:08 05:22 20:35 POC Glucose 193 H 113 H 165 H 03/27/19 17:35 POC Glucose 157 H Phys Exam - Physical Examination Neck: no nodes, no JVD, supple, full ROM Respiratory: no wheezing, no rales, no rhonchi, wheezing present, clear to auscultation bilateral Cardiovascular: RRR, no significant murmur, no rub, gallop, irregular Gastrointestinal: soft, non-tender, no distention, positive bowel sounds Dx/Plan (1) Acute systolic CHF (congestive heart failure) Code(s): I50.21 - ACUTE SYSTOLIC (CONGESTIVE) HEART FAILURE Status: Acute (2) Coronary artery disease Code(s): I25.10 - ATHSCL HEART DISEASE OF [place] CORONARY ARTERY W/O ANG PCTRS Status: Acute (3) Diabetes mellitus Code(s): E11.9 - TYPE 2 DIABETES MELLITUS WITHOUT COMPLICATIONS Status: Acute (4) Dyslipidemia Code(s): E78.5 - HYPERLIPIDEMIA, UNSPECIFIED Status: Acute (5) HTN (hypertension) Code(s): I10 - ESSENTIAL (PRIMARY) HYPERTENSION Status: Acute - Plan pt's ddimer is elevated, will get cta chest -: she will need a lifevest on discharge -: she will need home oxygen * . Review of Systems - Review of Systems Respiratory: negative: Cough, Dry, Shortness of Breath, Hemoptysis, SOB with Excertion, Pleuritic Pain, Sputum, Wheezing Cardiovascular: negative: chest pain, palpitations, orthopnea, paroxysmal nocturnal dyspnea, edema, light headedness, other - Medications/Allergies Allergies/Adverse Reactions: Allergies Allergy/AdvReac Type Severity Reaction Status Date / Time Sulfa (Sulfonamide Allergy Unknown Verified 03/25/19 00:16 Antibiotics) Medications: Current Medications Acetaminophen (Tylenol) 650 mg PO Q4H PRN PRN Reason: Headache/Fever/Mild Pain (1-3) Alprazolam (Xanax) 0.25 mg PO DAILY PRN PRN Reason: Anxiety Aspirin (Ecotrin) 81 mg PO DAILY [facility] Last Admin: 03/28/19 09:18 Dose: 81 mg Carvedilol (Coreg) 25 mg PO BID [facility] Last Admin: 03/28/19 09:21 Dose: 25 mg Cholecalciferol (Vitamin D3) 2,000 units PO DAILY [facility] Last Admin: 03/28/19 09:18 Dose: 2,000 units Dextrose/Water (Dextrose 50%) 25 gm SLOW IVP PRN PRN PRN Reason: Hypoglycemia Furosemide (Lasix) 40 mg SLOW IVP DAILY [facility] Last Admin: 03/28/19 09:21 Dose: 40 mg Glipizide (Glucotrol Xl) 5 mg PO BID-[facility] Last Admin: 03/28/19 09:19 Dose: 5 mg Glucagon (Glucagon) 1 mg IM PRN PRN PRN Reason: Hypoglycemia Heparin Sodium (Porcine) (Heparin) 5,000 units SC TID [facility] Last Admin: 03/28/19 15:36 Dose: 5,000 units Dextrose/Water (D5w) 1,000 mls @ 0 mls/hr IV .Q0M PRN PRN Reason: Hypoglycemia Insulin Human Lispro (Humalog) 0 units SC .MILD SLIDING SCALE PRN PRN Reason: Mild Correctional Scale Last Admin: 03/28/19 11:31 Dose: 2 unit Lisinopril (Zestril) 10 mg PO BID [facility] Last Admin: 03/28/19 09:19 Dose: 10 mg Rosuvastatin Calcium (Crestor) 20 mg PO HS [facility] Last Admin: 03/27/19 20:52 Dose: 20 mg Senna/Docusate Sodium (Senokot S) 2 tab PO BID PRN PRN Reason: Constipation Last Admin: 03/27/19 11:18 Dose: 2 tab Sodium Chloride (Flush - Normal Saline) 10 ml IVF Q12HR [facility] Last Admin: 03/28/19 09:20 Dose: 10 ml Sodium Chloride (Flush - Normal Saline) 10 ml IVF PRN PRN PRN Reason: Saline Flush Last Admin: 03/27/19 14:01 Dose: 10 ml
--- NOTE | 2019-03-28 17:59 | CT ---
CTA THORAX WITH CONTRAST: 03/28/19 (Computed Tomographic Angiography, chest(noncoronary) with contrast material, and image postprocessin g) (PE protocol) HISTORY: 68-year-old female with dyspnea and elevated D-dimer. TECHNIQUE: IV injection of iodinated contrast: 100 mL Isovue 370. Scan acquisition timing attempted to coincide with iodinated contrast bolus reaching maximal density in pulmonary arteries. 3D MIP reconstructions. FINDINGS: Very small right pleural effusion. Tiny left pleural effusion. Small to moderate sized pericardial e ffusion. No evidence of pulmonary thromboembolism. No thoracic aortic dissection or aneurysm. No cons olidation or pneumothorax. No mediastinal lymphadenopathy. Trachea and left and right main stem bronc hi are patent and clear. IMPRESSION: 1. No pulmonary thromboembolism. 2. Very small right pleural effusion and tiny left pleural effusion. 3. Pericardial effusion. jn[] POS: T[facility]
[2019-03-28] MEDS: Rosuvastatin 20 MG TAB PO SCH (21:18)
--- NOTE | 2019-03-29 02:02 | EKG ---
Test Reason : Blood Pressure : / mmHG Vent. Rate : 089 BPM Atrial Rate : 089 BPM P-R Int : 164 ms QRS Dur : 098 ms QT Int : 386 ms P-R-T Axes : 069 -05 110 degrees QTc Int : 469 ms Normal sinus rhythm Possible Left atrial enlargement Anterior infarct , age undetermined Abnormal ECG Confirmed by IESHA BUNDY DO ([id number]), editorial assistant THEA VASQUEZ ([id number]) on 03/29/2019 2:02:48 AM Referred By: Confirmed By:IESHA BUNDY DO
[2019-03-29] MEDS: Aspirin 81 mg Enteric Coated Tablet PO SCH (08:09)
[2019-03-29] MEDS: Heparin 5,000 UNITS/ML VIAL SC SCH ×2 (08:09→15:05)
[2019-03-29] MEDS: Furosemide 40 MG/4 ML VIAL SLOW IVP SCH (08:09)
[2019-03-29] MEDS: Carvedilol 25 MG TAB PO SCH (08:09)
[2019-03-29] MEDS: Lisinopril 10 MG TAB PO SCH (08:10)
[2019-03-29 11:01] LABS: Anion Gap 12 mmol/L (10-20); BUN (Urea Nitrogen) 21 mg/dL (9.8-20.1); Calc. Creatinine Clearance 73 mL/min (70-130); Carbon Dioxide 32 mmol/L (23-31); Chloride 100 mmol/L (98-107); Estimated GFR-MDRD 83; Glucose 145 mg/dL (80-115); Magnesium 1.9 mg/dL (1.6-2.6); Potassium 3.5 mmol/L (3.5-5.1); Sodium 140 mmol/L (136-145)
[2019-03-29 11:13] VITALS: TEMP 98.4
[2019-03-29 18:08] VITALS: BP 146/82
--- NOTE | 2019-03-30 13:58 | DIS ---
DATE OF ADMISSION: 03/24/2019 DATE OF DISCHARGE: 03/29/2019 DISCHARGE DIAGNOSES: As of the following; 1. Acute systolic heart failure. 2. Coronary artery disease. 3. Diabetes. 4. Hyperlipidemia. 5. Hypertension. HOSPITAL COURSE: The patient is a 68-year-old female who initially presented to the hospital with shortness of breath. She was also found to have negative troponins x3. She underwent an echocardiogram which indicated an EF of 30% to 35% with grade 2 diastolic dysfunction and [id number] mitral regurgitation. She was seen by Cardiology who recommended outpatient followup with them. I had also recommended a LifeVest due to decreased EF. The patient was treated with IV Lasix and then transitioned to oral. She also continued to have significant shortness of breath and she required oxygen on ambulation. The patient did undergo a CTA of the chest, which indicated no pulmonary embolism, a very small pleural effusion, and some pericardial effusion. The patient continued to improve through the hospital stay. She was discharged home. She will follow up with her primary care doctor and also with Cardiology. The patient was educated on diet, low-salt foods, and also her limitations of drinking water. MEDICATIONS: 1. Lasix 40 mg daily. 2. Lisinopril 10 mg b.i.d. 3. Nitroglycerin 0.4 sublingual q.5 hours p.r.n. 4. Carvedilol 25 mg b.i.d. 5. Metformin 1000 mg b.i.d. 6. Rosuvastatin 20 mg at bedtime. 7. Glipizide 5 mg b.i.d. 8. Aspirin 325 p.o. daily. PHYSICAL EXAMINATION: VITAL SIGNS: Temperature of 98.4, 72, 18, 93% on 2 L, 155/70. GENERAL: She is awake, alert, and oriented x3. Does not appear in distress. CV: S1 and S2, present. No murmurs, rubs, or gallops. ABDOMEN: Soft and nontender. Bowel sounds are present x2. The patient also has a history of smoking. I did recommend to her to follow up with her primary and also maybe Pulmonology to do a pulmonary function test once she is back to her baseline. Job ID: [id number]
== END 2019-03-29 18:02 | disposition home or self-care (01) | DRG 291 ==
LOC: ERS 15:24 → 2NO 20:16
PROVIDERS: ADMIT Internal Medicine; ATTEND Internal Medicine
DX: I11.0 Hypertensive heart disease with heart failure (principal); J96.01 Acute respiratory failure with hypoxia; N17.9 Acute kidney failure, unspecified; I50.23 Acute on chronic systolic (congestive) heart failure; I42.8 Other cardiomyopathies; I25.10 Atherosclerotic heart disease of native coronary artery without angina pectoris; E11.9 Type 2 diabetes mellitus without complications; E78.5 Hyperlipidemia, unspecified; M19.90 Unspecified osteoarthritis, unspecified site; E78.00 Pure hypercholesterolemia, unspecified; F41.9 Anxiety disorder, unspecified; F17.210 Nicotine dependence, cigarettes, uncomplicated; Z88.2 Allergy status to sulfonamides; Z79.84 Long term (current) use of oral hypoglycemic drugs; Z79.52 Long term (current) use of systemic steroids; Z79.899 Other long term (current) drug therapy
CPT/HCPCS: 36415; 36416; 71045; 71275; 80048; 80053; 83036; 83735; 83880; 84145; 84484; 85025; 85379; 93005; 93306; 93798; 94660; 96374; J1644; J1940; J1956; Q9966

== ENCOUNTER 2019-06-04 09:11 | Outpatient (CLI) | payer MEDICARE ==
[2019-06-04 10:46] LABS: #Basophils 0.1 thou/uL (0.0-0.2); #Eosinphils 0.5 thou/uL (0.0-0.7); #Lymphocytes 2.6 thou/uL (1.20-3.40); #Monocytes 0.6 thou/uL (0.11-0.59); #Neutrophils 3.2 thou/uL (1.40-6.50); %Basophils 0.8 % (0.0-1.0); %Eosinophils 6.8 % (0.0-10.0); %Lymphocytes 37.9 % (21.0-51.0); %Monocytes 8.3 % (0.0-10.0); %Neutrophils 46.1 % (42.0-75.0); Hemoglobin 11.9 g/dL (12.0-16.0); Mean Corpuscular HGB CONC 31.8 g/dL (32.0-36.0); Mean Corpuscular Hemoglobin 28.2 pg (27.0-31.0); Mean Corpuscular Volume 88.7 fL (78.0-98.0); Mean Platelet Volume 9.1 fL (7.4-10.4); Platelet Count 233 thou/uL (130-400); RBC Distribution Width 14.3 % (11.5-14.5); Red Blood Cell (RBC) Count 4.23 mill/uL (4.20-5.40); White Blood Cell (WBC) Count 6.8 thou/uL (4.8-10.8)
[2019-06-04 10:58] LABS: Cardiac Risk 5.8 (Less than 4.5)
== END 2019-06-04 09:12 | disposition home or self-care (01) ==
LOC: LABBT 09:11
PROVIDERS: ATTEND Internal Medicine Cardiovascular Disease
DX: I42.0 Dilated cardiomyopathy (principal)
CPT/HCPCS: 80061; 85025

== ENCOUNTER 2019-06-10 06:03 | Inpatient (IN) | payer MEDICARE ==
[2019-06-10] MEDS ORDERED: Lidocaine 1% (PF) 30 ML VIAL ONE (06:28)
[2019-06-10] MEDS ORDERED: Verapamil 5 MG/2 ML VIAL ONE (06:36)
[2019-06-10] MEDS ORDERED: Heparin 10,000 UNITS/1 ML VIAL ONE (06:36)
[2019-06-10] MEDS ORDERED: Nitroglycerin 100MG/250ML BOT 250 ML ONE (06:36)
[2019-06-10 07:56] LABS: Anion Gap 10 mmol/L (10-20); BUN (Urea Nitrogen) 24 mg/dL (9.8-20.1); Calc. Creatinine Clearance 60 mL/min (70-130); Calcium 9.1 mg/dL (7.8-10.44); Carbon Dioxide 28 mmol/L (23-31); Chloride 104 mmol/L (98-107); Estimated GFR-MDRD 63; Glucose 162 mg/dL (80-115); Sodium 138 mmol/L (136-145)
[2019-06-10] MEDS ORDERED: Midazolam HCl 2 mg/2 ml Vial ONE (08:10)
[2019-06-10] MEDS ORDERED: Fentanyl 100 MCG/2 ML VIAL ONE (08:11)
[2019-06-10] MEDS ORDERED: hydrALAZINE 20 MG/ML VIAL ONE (08:27)
[2019-06-10] MEDS ORDERED: Acetaminophen/Codeine 30-300mg Tablet PO PRN ×2 (09:30)
[2019-06-10] MEDS ORDERED: Nitroglycerin 0.4 MG TAB (25 Tab Bottle) SL PRN (09:30)
[2019-06-10] MEDS ORDERED: Sodium Chloride 0.9% 1,000 ML IV SCH (09:30)
[2019-06-10] MEDS ORDERED: traMADol HCl 50 MG TAB PO PRN (09:30)
[2019-06-10] MEDS ORDERED: Nitroglycerin 0.4 MG TAB 1 EACH SL PRN (09:33)
[2019-06-10 13:00] VITALS: BMI 30.9
[2019-06-10] MEDS: Fentanyl 100 MCG/2 ML VIAL SLOW IVP SCH ×2 (13:13→13:50)
--- NOTE | 2019-06-10 14:59 | ULT ---
EXAM: US PseudoAneurysm Sudeep Evl PROVIDED CLINICAL HISTORY: Right groin hematoma. Evaluate for pseudoaneurysm. COMPARISON: None FINDINGS: Limited sonographic evaluation of the right groin was performed. Initial images demonstrate flow with in the right common femoral vein and right common femoral artery on color flow evaluation and spectral analysis of the Doppler waveform. Within the right groin, there is a large anechoic to hypoechoic area seen which measures 4.5 cm x 3.5 cm x 2.8 cm and does not demonstrate flow which is likely related to a hematoma. Also on the initial images in the right inguinal region, a tiny amount of flow was seen just anterior to the leve l of the right common femoral artery and adjacent to the presumed hematoma suggesting a tiny pseudoaneurysm difficult to adequately measure. Compression was applied for approximately 15 minutes, and sonographic evaluation was again performed. After 15 minutes of compression, there is now evidence of an area of flow with to and fro motion seen adjacent to the large hematoma which measures approximately 2.2 cm and is most compatible with a pseudoaneurysm with small neck present. Manual compression was again performed for an additional 20 minutes, follow-up sonographic evaluation demonstrates resolution of the flow in previously noted area of pseudoaneurysm hypoechoic area present. Doppler evaluation the right common femoral artery at this time again demonstrates arterial waveform. IMPRESSION: 1. Evidence of hematoma in the right inguinal region and presence of a pseudoaneurysm just superior a nd lateral to the area of hematoma. Initial manual compression of the tiny pseudoaneurysm resulted in enlargement of the pseudoaneurysm as described above. Manual compression was again performed for a n additional 20 minutes with resolution of the pseudoaneurysm and only a hypoechoic area is seen corresponding to the thrombosed pseudoaneurysm.
[2019-06-10] MEDS ORDERED: Iopamidol 370 76% 100 ML VIAL ONE (15:59)
[2019-06-10] MEDS ORDERED: Communication Order-Pharmacy FS SCH (17:19)
--- NOTE | 2019-06-10 18:44 | RAD ---
EXAM: Single view of the chest HISTORY: Preoperative radiograph prior to open heart surgery COMPARISON: 03/24/2019 FINDINGS: Single view of the chest shows an enlarged but stable cardiomediastinal silhouette. There i s no evidence of consolidation, mass, or pleural effusion. Degenerative changes are seen in the spine. IMPRESSION: Cardiomegaly without evidence of acute cardiopulmonary disease
[2019-06-10] MEDS: Carvedilol 25 MG TAB PO SCH (20:24)
[2019-06-10] MEDS ORDERED: Rosuvastatin 20 MG TAB PO SCH (21:00)
--- NOTE | 2019-06-10 21:39 | CON ---
DATE OF CONSULTATION: HISTORY: This is a 68-year-old female, followed for the past several years for severe left ventricular dysfunction with an ejection fraction initially thought to be 25% to 30% by echo in 2015. However, on review of those films, her ejection fraction appeared to be somewhat better than that. Currently, it is estimated to be at 30% and this is probably slightly generous. She was admitted last month for exacerbation of congestive heart failure and then subsequently underwent cardiac catheterization today showing a new proximal LAD lesion that was not present on catheterization 2 years ago. She has had no chest pain. She has multiple cardiovascular risk factors, including diabetes mellitus, treated with oral medications, hypertension, dyslipidemia. HOME MEDICATIONS: Include Crestor 20, potassium 20, Zaroxolyn 2.5 p.r.n., glipizide/metformin b.i.d., Lasix 40 daily, Coreg 25 b.i.d., aspirin 325 a day. ALLERGIES: SHE REPORTS ALLERGIES TO [facility]. SOCIAL HISTORY: She is a nonsmoker. Her daughter currently lives with her. PAST SURGICAL HISTORY: Includes a partial hysterectomy. PHYSICAL EXAMINATION: VITAL SIGNS: She is alert, cooperative lady, in no distress at this time with a recorded height of 5 feet 3 inches and recorded weight of 175. She has a blood pressure recorded as 159/77, heart rate is 74, O2 saturation is 98%, and she does wear oxygen at home. NECK: No carotid bruits. JVD is not visible supine. CARDIAC: Regular rate and rhythm and she has no murmurs. ABDOMEN: Soft and nontender. EXTREMITIES: She has no bruising in the right groin from calf today and she has palpable popliteal pulses bilaterally and I do not appreciate pedal pulse. NEUROLOGIC: No focal neurologic deficits. She has no peripheral edema. PLAN: At this time is for coronary artery bypass grafting to the LAD and diagonal and informed consent has been obtained. She does have a LifeVest that she has not been wearing and will need this postoperatively. Informed consent has been obtained. Job ID: [id number]
[2019-06-11] MEDS ORDERED: CEFAZOLIN 2 GM in Premix Bag 1 BAG IVPB SCH (02:45)
[2019-06-11] MEDS: Carvedilol 25 MG TAB PO SCH (05:31)
[2019-06-11] MEDS ORDERED: Midazolam HCl 2 mg/2 ml Vial ONE (06:32)
[2019-06-11] MEDS ORDERED: Fentanyl 100 MCG/2 ML VIAL ONE (06:32)
[2019-06-11] MEDS ORDERED: Midazolam HCl 5 mg/5 ml Vial ONE (06:32)
[2019-06-11] MEDS ORDERED: Vecuronium 10 MG VIAL ONE ×2 (06:33→12:43)
[2019-06-11] MEDS ORDERED: Dexmedetomidine 200 MCG/2 ML VIAL ONE (06:33)
[2019-06-11] MEDS ORDERED: Albumin 5% 500 ML ONE (06:36)
[2019-06-11] MEDS ORDERED: Heparin 10,000 UNITS/1 ML VIAL 30,000 UNITS in Sodium Chloride 0.9% 1,000 ML FS SCH (06:45)
[2019-06-11] MEDS ORDERED: Milrinone 10 MG/10 ML VIAL ONE (06:58)
[2019-06-11] MEDS ORDERED: Insulin Regular 300 UNITS/3 ML VIAL ONE (07:19)
[2019-06-11] MEDS ORDERED: Potassium Chloride 20 MEQ TAB PO SCH (09:00)
[2019-06-11] MEDS ORDERED: Aspirin 325 MG TAB PO SCH (09:00)
[2019-06-11] MEDS ORDERED: Hetastarch 6% 500 ML 500 ML IVPB PRN (11:24)
[2019-06-11] MEDS ORDERED: Magnesium 2 GM/50 ML 2 GM in Premix Bag 1 BAG IVPB SCH (11:24)
[2019-06-11] MEDS ORDERED: Bisacodyl 10 MG SUPP PR PRN (11:24)
[2019-06-11] MEDS ORDERED: niCARdipine 25 MG in Sodium Chloride 0.9% 250 ML 250 ML IVPB PRN (11:24)
[2019-06-11] MEDS ORDERED: Post-Op Insulin Drip Protocol IVPB ONE (11:24)
[2019-06-11] MEDS ORDERED: hydrALAZINE 20 MG/ML VIAL SLOW IVP PRN (11:24)
[2019-06-11] MEDS ORDERED: Ondansetron PF 4 MG/2 ML Vial IVP PRN (11:24)
[2019-06-11] MEDS ORDERED: Guaifenesin DM 100-10/5 ML UDCUP PO PRN (11:24)
[2019-06-11] MEDS ORDERED: Acetaminophen 325 MG TAB PO PRN (11:24)
[2019-06-11] MEDS ORDERED: DOPamine 400 MG/D5W 250 ML 250 ML IVPB PRN (11:24)
[2019-06-11] MEDS ORDERED: Promethazine HCl 25 MG/ML VIAL IM PRN (11:24)
[2019-06-11] MEDS ORDERED: Morphine 2 MG/ML SYRINGE SLOW IVP PRN (11:24)
[2019-06-11] MEDS ORDERED: Bisacodyl 5 MG TAB PO PRN (11:24)
[2019-06-11] MEDS ORDERED: Mag-Al 1200 mg/1200 mg/30 ML UDCUP PO PRN (11:24)
[2019-06-11] MEDS ORDERED: Fentanyl 100 MCG/2 ML VIAL SLOW IVP PRN (11:24)
[2019-06-11] MEDS ORDERED: Nitroglycerin 50 MG/250 ML BOT 250 ML IVPB PRN (11:24)
[2019-06-11] MEDS ORDERED: Norepinephrine 8 MG/0.9% NS 250 ML IVPB PRN (11:24)
[2019-06-11] MEDS ORDERED: Dextrose 50% Abboject 50 ML SYRINGE SLOW IVP PRN (11:34)
[2019-06-11] MEDS ORDERED: HUMULIN R 100 UNITS in Sodium Chloride 0.9% 100 ML IVPB SCH (11:34)
[2019-06-11] MEDS ORDERED: Insulin Regular 300 UNITS/3 ML VIAL SC PRN (11:34)
[2019-06-11] MEDS ORDERED: Dextrose 5% in Water 1,000 ML IV PRN (11:34)
[2019-06-11 12:07] LABS: Actual Bicarbonate (HCO3a) 20.7 mEq/L (22-28); Base Excess (BEa) -4.7 mEq/L (-2.0 to +3.0); CO2 Tension 39.3 mmHg (35.0-45.0); Calcium, Ionized 1.09 mmol/L (1.12-1.30); Carboxyhemoglobin (COHb) 0.4 gm% (0.0-3.0); Hemoglobin (Hb) 9.5 g/dL (12.0-16.0); O2 Tension (PaO2) 120.1 mmHg (> 70.0); Potassium - ABG Lab 3.91 mmol/L (3.70-5.30); pH, Arterial 7.34 (7.35-7.45)
--- NOTE | 2019-06-11 12:11 | RAD ---
XR Chest 1 View Portable History: Open-heart surgery Comparison: Radiograph prior day Findings: New right subclavian central venous catheter tip in good position. Mild atelectasis in lung bases. Mediastinal drains are in good position. No significant pneumothorax. New multiple midline sternotomy wires. Heart size mildly enlarged. No acute osseous abnormality. Impression: Uncomplicated expected postoperative findings.
[2019-06-11 12:17] LABS: #Eosinphils 0.2 thou/uL (0.0-0.7); #Lymphocytes 1.2 thou/uL (1.20-3.40); #Monocytes 0.5 thou/uL (0.11-0.59); #Neutrophils 7.3 thou/uL (1.40-6.50); %Basophils 0.1 % (0.0-1.0); %Eosinophils 2.5 % (0.0-10.0); %Lymphocytes 12.5 % (21.0-51.0); %Monocytes 5.4 % (0.0-10.0); %Neutrophils 79.5 % (42.0-75.0); Hemoglobin 9.2 g/dL (12.0-16.0); Mean Corpuscular Hemoglobin 29.5 pg (27.0-31.0); Mean Corpuscular Volume 89.4 fL (78.0-98.0); Mean Platelet Volume 8.6 fL (7.4-10.4); Platelet Count 129 thou/uL (130-400); RBC Distribution Width 13.6 % (11.5-14.5); Red Blood Cell (RBC) Count 3.12 mill/uL (4.20-5.40); White Blood Cell (WBC) Count 9.2 thou/uL (4.8-10.8)
[2019-06-11] MEDS: Lactated Ringer's 1,000 ML IV SCH (12:17)
[2019-06-11] MEDS ORDERED: Norepinephrine 8 MG in Dextrose 5% in Water 242 ML IVPB PRN (12:20)
[2019-06-11 12:22] LABS: INR-International Normal Ratio 1.3; Prothrombin Time 16.5 SEC (12.0-14.7)
[2019-06-11] MEDS ORDERED: Calcium Chloride 1 GM/10 ML Abboject SYRINGE ONE (12:43)
[2019-06-11] MEDS ORDERED: Papaverine 60 MG/2 ML VIAL ONE (12:43)
[2019-06-11] MEDS ORDERED: Sodium Bicarb 50 MEQ/50 ML VIAL ONE (12:43)
[2019-06-11] MEDS ORDERED: Potassium Chloride 60 MEQ/30 ML VIAL ONE (12:43)
[2019-06-11] MEDS ORDERED: Nitroglycerin 50 MG/250 ML BOT ONE (12:43)
[2019-06-11] MEDS ORDERED: Mannitol 12.5 GM/50 ML ONE (12:43)
[2019-06-11] MEDS ORDERED: ePHEDrine 50 MG/ML VIAL ONE (12:43)
[2019-06-11] MEDS ORDERED: Ketorolac Tromethamine 30 MG/ML VIAL ONE (12:43)
[2019-06-11] MEDS ORDERED: Cardioplegic Soln 1,000 ML BAG ONE (12:43)
[2019-06-11] MEDS ORDERED: Magnesium 5 GM/10 ML VIAL ONE (12:43)
[2019-06-11] MEDS ORDERED: Aminocaproic Acid 5 GM/20 ML VIAL ONE (12:43)
[2019-06-11] MEDS ORDERED: Glycopyrrolate 0.2 MG/ML 5 ML SYRINGE ONE (12:43)
[2019-06-11] MEDS ORDERED: Thrombin 5000 UNITS/5 ML VIAL ONE (12:43)
[2019-06-11] MEDS ORDERED: Heparin 5,000 UNITS/ML VIAL ONE (12:43)
[2019-06-11] MEDS ORDERED: Ondansetron PF 4 MG/2 ML Vial ONE (12:43)
[2019-06-11] MEDS ORDERED: Lidocaine 2% PF 100 mg/5 ml Syringe ONE (12:43)
[2019-06-11] MEDS ORDERED: Dexamethasone 20 MG/5 ML VIAL ONE (12:43)
[2019-06-11] MEDS ORDERED: PHENYLEPHRINE-NS 100 MCG/ML 10 ML SYRINGE ONE (12:43)
[2019-06-11] MEDS ORDERED: Heparin 30,000 units/30 ml VIAL ONE (12:43)
[2019-06-11] MEDS ORDERED: Protamine Sulfate 250 MG/25 ML VIAL ONE (12:43)
[2019-06-11] MEDS ORDERED: PROPOFOL 200 MG/20 ML VIAL ONE (12:49)
[2019-06-11 12:59] LABS: Puncture Site ALINE
[2019-06-11 12:59] LABS: Anion Gap 12 mmol/L (10-20); BUN (Urea Nitrogen) 23 mg/dL (9.8-20.1); Calc. Creatinine Clearance 73 mL/min (70-130); Calcium 7.1 mg/dL (7.8-10.44); Carbon Dioxide 23 mmol/L (23-31); Chloride 112 mmol/L (98-107); Estimated GFR-MDRD 75; Glucose 163 mg/dL (80-115); Potassium 3.9 mmol/L (3.5-5.1); Sodium 143 mmol/L (136-145)
[2019-06-11 13:00] LABS: ALV-art Gradient 187.275 (0-20)
[2019-06-11] MEDS: Potassium Chloride 20 MEQ/100 ML PREMIX BAG IVPB PRN ×2 (13:25→19:06)
--- NOTE | 2019-06-11 13:39 | OP ---
DATE OF PROCEDURE: 06/11/2019 PREPROCEDURE DIAGNOSIS: Mitral regurgitation. POSTPROCEDURE DIAGNOSIS: Mild MR. I discussed the case with Dr. Regis Cotto. Her echo did suggest significant mitral regurgitation, which certainly has a surgical consequences. It is decided to proceed with a AMALIA prior to surgery. I consented the procedure in full detail. Risks include not limited to the following: Damage to teeth, mouth, back of throat, damage to esophagus, as well as reaction to medication. All questions answered. Given the above, the patient agreed to proceed above procedure. Conscious sedation performed with propofol. The probe passed easily into the esophagus. FINDINGS: Overall LVEF does appear markedly diminished, estimated at 25%. The mitral valve is well visualized. It appears to be intact mechanically. There is mild mitral regurgitation present on color-flow Doppler after multiple images were performed. IMPRESSION: 1. Mild MR. 2. LVEF 25%. Job ID: [id number]
[2019-06-11] MEDS: CEFAZOLIN 2 GM in Premix Bag 1 BAG IVPB SCH ×2 (14:32→22:10)
[2019-06-11] MEDS: Fentanyl 100 MCG/2 ML VIAL SLOW IVP PRN ×2 (16:43→19:57)
[2019-06-11 18:22] LABS: Hemoglobin 9.4 g/dL (12.0-16.0)
[2019-06-11] MEDS: HYDROcodone/Acetaminophen 5/325 mg Tablet PO PRN (19:32)
[2019-06-11] MEDS: Famotidine/PF 20 mg/2ml Vial SLOW IVP SCH (20:03)
[2019-06-11] MEDS: Rosuvastatin 20 MG TAB PO SCH (20:03)
[2019-06-12] MEDS: HYDROcodone/Acetaminophen 5/325 mg Tablet PO PRN ×3 (01:20→20:19)
[2019-06-12] MEDS: Lactated Ringer's 1,000 ML IV SCH ×2 (01:30→05:55)
[2019-06-12 04:48] LABS: #Lymphocytes 1.2 thou/uL (1.20-3.40); #Monocytes 0.8 thou/uL (0.11-0.59); #Neutrophils 9.3 thou/uL (1.40-6.50); %Basophils 0.2 % (0.0-1.0); %Eosinophils 0.1 % (0.0-10.0); %Lymphocytes 10.4 % (21.0-51.0); %Monocytes 7.4 % (0.0-10.0); Hemoglobin 9.2 g/dL (12.0-16.0); Mean Corpuscular HGB CONC 32.8 g/dL (32.0-36.0); Mean Corpuscular Hemoglobin 29.5 pg (27.0-31.0); Mean Platelet Volume 9.2 fL (7.4-10.4); Platelet Count 148 thou/uL (130-400); RBC Distribution Width 13.9 % (11.5-14.5); Red Blood Cell (RBC) Count 3.13 mill/uL (4.20-5.40); White Blood Cell (WBC) Count 11.3 thou/uL (4.8-10.8)
[2019-06-12 05:08] LABS: Anion Gap 12 mmol/L (10-20); BUN (Urea Nitrogen) 22 mg/dL (9.8-20.1); Calc. Creatinine Clearance 74 mL/min (70-130); Carbon Dioxide 23 mmol/L (23-31); Chloride 110 mmol/L (98-107); Estimated GFR-MDRD 76; Glucose 127 mg/dL (80-115); Potassium 3.9 mmol/L (3.5-5.1); Sodium 141 mmol/L (136-145)
[2019-06-12] MEDS: CEFAZOLIN 2 GM in Premix Bag 1 BAG IVPB SCH (05:12)
[2019-06-12] MEDS: Potassium Chloride 20 MEQ/100 ML PREMIX BAG IVPB PRN (06:37)
--- NOTE | 2019-06-12 06:59 | PDOC.CPN ---
- Subjective Date: 06/12/19 Time: 08:25 - Objective Allergies/Adverse Reactions: Allergies Allergy/AdvReac Type Severity Reaction Status Date / Time Sulfa (Sulfonamide Allergy Unknown Verified 06/04/19 09:22 Antibiotics) Visit Medications: Current Medications Rosuvastatin Calcium (Crestor) 20 mg PO HS [facility] Last Admin: 06/11/19 20:03 Dose: 20 mg Vital Signs & Weight: Vital Signs Temp Pulse Ox 06/12/19 04:00 98.2 F 06/12/19 00:00 97.8 F 06/11/19 20:00 97.6 F 100 Weight 175 lb - Physical Exam General: alert & oriented x3 Neck: supple neck Cardiac: regular rate and rhythm Lungs: clear to auscultation Neuro: grossly intact Abdomen: unremarkable Musculoskeletal: no pain - Labs Result Diagrams: 06/12/19 04:30 06/12/19 04:30 - Problem (1) Acute systolic CHF (congestive heart failure) Code(s): I50.21 - ACUTE SYSTOLIC (CONGESTIVE) HEART FAILURE Assessment and Plan: Will add BB, ACEI, ASA, statin (2) S/P CABG (coronary artery bypass graft) Code(s): Z95.1 - PRESENCE OF AORTOCORONARY BYPASS GRAFT (3) Coronary artery disease Code(s): I25.10 - ATHSCL HEART DISEASE OF [place] CORONARY ARTERY W/O ANG PCTRS Assessment and Plan: s/p CABG yesterday Doing well (4) Diabetes mellitus Code(s): E11.9 - TYPE 2 DIABETES MELLITUS WITHOUT COMPLICATIONS
[2019-06-12] MEDS: Aspirin 325 MG TAB PO SCH (07:24)
[2019-06-12] MEDS: Famotidine/PF 20 mg/2ml Vial SLOW IVP SCH (07:29)
--- NOTE | 2019-06-12 08:37 | CON ---
DATE OF CONSULTATION: HISTORY OF PRESENT ILLNESS: Zakia Mercer is a 68-year-old female, who is status post surgery. She is in the ICU. Complaining of chest pain, but no shortness of breath. She is a former smoker, quit smoking about two months ago. PAST MEDICAL HISTORY: Pertinent for diabetes, hypertension, high cholesterol, cardiomyopathy, previous markedly-decreased EF requiring a LifeVest. PREVIOUS SURGERIES: Include hysterectomy and CABG. HOME MEDICATIONS: Includes, 1. Crestor 20. 2. Potassium. 3. Nitroglycerin. 4. Metolazone 2.5. 5. Glipizide metformin combination. 6. Lasix 40. 7. Coreg 25. 8. Aspirin. ALLERGIES: SULFA. SOCIAL HISTORY: . REVIEW OF SYSTEMS: Otherwise 10-point negative. PHYSICAL EXAMINATION: GENERAL: In no distress. VITAL SIGNS: Pulse is 73, blood pressure 140/55, saturations are 100% on 2 L, respiratory rate 18. CHEST: Decreased breath sounds without any wheezing. CARDIAC: Normal S1, S2. No gallops. ABDOMEN: No masses. LABORATORY DATA: White count 69820, H and H 9 and 28. Lytes are normal. X-ray shows left pleural effusion. ASSESSMENT: 1. Cardiomyopathy, status post coronary artery bypass grafting. 2. Diabetes. 3. Former smoker. PLAN: Continue cardiac care. I have added neb treatments to present regime. Early ambulation. We will follow. Consultation note, 70 minutes, 50% direct patient care. Job ID: [id number]
--- NOTE | 2019-06-12 08:37 | RAD ---
PORTABLE CHEST: INDICATION: Postop sternotomy. COMPARISON: 06/11/2019. FINDINGS: The heart is mildly enlarged with postop sternotomy change. Mild vascular engorgement. Left basilar atelectasis. Chest drainage catheter is unchanged. Central line is unchanged. IMPRESSION: No acute change from yesterday. POS: [facility]
[2019-06-12] MEDS ORDERED: Ondansetron PF 4 MG/2 ML Vial IVP PRN (08:57)
[2019-06-12] MEDS ORDERED: Mag-Al 1200 mg/1200 mg/30 ML UDCUP PO PRN (08:57)
[2019-06-12] MEDS ORDERED: Nitroglycerin 0.4 MG TAB (25 Tab Bottle) SL PRN (08:57)
[2019-06-12] MEDS ORDERED: Bisacodyl 5 MG TAB PO PRN (08:57)
[2019-06-12] MEDS ORDERED: Mineral Oil ENEMA PR PRN (08:57)
[2019-06-12] MEDS ORDERED: Guaifenesin DM 100-10/5 ML UDCUP PO PRN (08:57)
[2019-06-12] MEDS ORDERED: Bisacodyl 10 MG SUPP PR PRN (08:57)
[2019-06-12] MEDS ORDERED: Aspirin 325 mg Enteric Coated Tablet PO SCH (09:00)
--- NOTE | 2019-06-12 09:23 | OP ---
DATE OF PROCEDURE: 06/11/2019 PREOPERATIVE DIAGNOSES: Coronary artery disease and left ventricular dysfunction. PROCEDURES PERFORMED: Coronary artery bypass graft x2, left internal mammary artery small vessel good flow to a large thick-walled left anterior descending and saphenous vein good quality to a 2 mm ramus. DISTRICT [employer] MANAGEMENT OFFICER: Shay Lopez MD TRANSFUSION: None. DESCRIPTION OF PROCEDURE: After adequate anesthesia had been obtained, the patient was prepped and draped. Dr. Lopez did an open vein harvest of the left greater saphenous vein while I performed a median sternotomy. After opening the sternum, the right pleura had been widely opened with the saw and could not be closed. The left internal mammary artery was harvested and divided distally and treated with intraluminal papaverine. Simultaneously, aorta and right atrium were cannulated. The mammary was brought posterior to a remnant of thymus gland and through a hole in the pericardium to allow the shortest distance to the LAD. Cardiopulmonary bypass was begun. The vessels were inspected for grafting and the heart was rather large. The aorta was cross clamped. After a liter of cold blood cardioplegia, two distal anastomosis were completed and the cross-clamp removed. The partial occluding clamp placed and a single proximal anastomosis completed. Following this, the patient was weaned from cardiopulmonary bypass. Cannulas were removed and protamine was given systemically. Temporary atrial pacing wires were placed, but not utilized. Mediastinal and bilateral pleural drains were placed following which distal sternum was reapproximated with #7 interrupted wire. The vancomycin paste was used on the sternal edges, platelet rich blood and platelet poor plasma. Subcutaneous tissue and skin were closed in layers. Job ID: [id number]
[2019-06-12] MEDS ORDERED: Insulin Regular 300 UNITS/3 ML VIAL SC PRN ×2 (09:37→21:08)
[2019-06-12] MEDS ORDERED: Dextrose 5% in Water 1,000 ML IV PRN ×2 (09:37→21:07)
[2019-06-12] MEDS ORDERED: HUMULIN R 100 UNITS in Sodium Chloride 0.9% 100 ML IVPB SCH (09:37)
[2019-06-12] MEDS ORDERED: Dextrose 50% Abboject 50 ML SYRINGE SLOW IVP PRN (09:37)
[2019-06-12] MEDS: Famotidine 20 MG TAB PO SCH ×2 (09:40→20:19)
[2019-06-12] MEDS: Furosemide 40 MG TAB PO SCH (09:49)
[2019-06-12] MEDS: Polyethylene Glycol 3350 17 GM Packet PO SCH (09:49)
[2019-06-12] MEDS: metFORMIN 500 MG TAB PO SCH (17:23)
[2019-06-12 17:35] LABS: Glucose 183 mg/dL (80-115)
[2019-06-12] MEDS: Rosuvastatin 20 MG TAB PO SCH (20:19)
[2019-06-12] MEDS ORDERED: Dextrose 50% Abboject 50 ML SYRINGE IVP PRN (21:07)
[2019-06-12 21:40] LABS: Glucose 198 mg/dL (80-115)
[2019-06-13] MEDS: HYDROcodone/Acetaminophen 5/325 mg Tablet PO PRN ×2 (00:58→05:43)
[2019-06-13 03:55] LABS: #Eosinphils 0.1 thou/uL (0.0-0.7); #Lymphocytes 1.2 thou/uL (1.20-3.40); #Monocytes 0.9 thou/uL (0.11-0.59); #Neutrophils 8.7 thou/uL (1.40-6.50); %Eosinophils 0.7 % (0.0-10.0); %Lymphocytes 11.2 % (21.0-51.0); %Monocytes 8.2 % (0.0-10.0); %Neutrophils 79.9 % (42.0-75.0); Hemoglobin 8.7 g/dL (12.0-16.0); Mean Corpuscular HGB CONC 32.2 g/dL (32.0-36.0); Mean Corpuscular Hemoglobin 29.2 pg (27.0-31.0); Mean Corpuscular Volume 90.6 fL (78.0-98.0); Mean Platelet Volume 9.5 fL (7.4-10.4); Platelet Count 145 thou/uL (130-400); RBC Distribution Width 13.8 % (11.5-14.5); Red Blood Cell (RBC) Count 2.97 mill/uL (4.20-5.40); White Blood Cell (WBC) Count 10.9 thou/uL (4.8-10.8)
[2019-06-13 04:12] LABS: Anion Gap 11 mmol/L (10-20); BUN (Urea Nitrogen) 24 mg/dL (9.8-20.1); Calc. Creatinine Clearance 53 mL/min (70-130); Calcium 8.3 mg/dL (7.8-10.44); Carbon Dioxide 24 mmol/L (23-31); Chloride 106 mmol/L (98-107); Estimated GFR-MDRD 52; Glucose 181 mg/dL (80-115); Potassium 4.2 mmol/L (3.5-5.1); Sodium 137 mmol/L (136-145)
[2019-06-13] MEDS: Aspirin 325 MG TAB PO SCH (08:34)
[2019-06-13] MEDS: Polyethylene Glycol 3350 17 GM Packet PO SCH (08:34)
[2019-06-13] MEDS: Potassium Chloride 10 MEQ TAB PO SCH (08:34)
[2019-06-13] MEDS: Furosemide 40 MG TAB PO SCH (08:35)
[2019-06-13] MEDS: Famotidine 20 MG TAB PO SCH ×2 (08:35→22:22)
[2019-06-13] MEDS: metFORMIN 500 MG TAB PO SCH ×2 (08:35→17:14)
[2019-06-13] MEDS ORDERED: metFORMIN 500 MG TAB PO SCH (09:15)
--- NOTE | 2019-06-13 12:02 | PRG ---
DATE OF SERVICE: 06/13/2019 SUBJECTIVE: This morning, she is better, less pain, less shortness of breath. OBJECTIVE: VITAL SIGNS: Temperature 98, pulse 60, respiratory rate 18, saturation , blood pressure 130/62. CHEST: Decreased breath sounds. No wheezing. CARDIAC: Normal S1 and S2. No gallops. ABDOMEN: No masses. status post coronary artery bypass grafting, left pleural effusion, mild azotemia. PLAN: Continue PT, supportive care. We will follow. Job ID: [id number]
--- NOTE | 2019-06-13 13:05 | PDOC.CPN ---
- Subjective Date: 06/13/19 Time: 13:08 Interval history: The pt seen and examined. No overnight events. No cardiac complaints. - Objective Allergies/Adverse Reactions: Allergies Allergy/AdvReac Type Severity Reaction Status Date / Time Sulfa (Sulfonamide Allergy Unknown Verified 06/04/19 09:22 Antibiotics) Visit Medications: Current Medications Acetaminophen (Tylenol) 650 mg PO Q6H PRN PRN Reason: Headache/Fever Or Mild Pain Hydrocodone Bitart/Acetaminophen ([place] 5/325) 1 tab PO Q4H PRN PRN Reason: Moderate Pain (4-6) Last Admin: 06/13/19 05:43 Dose: 1 tab Al Hydroxide/Mg Hydroxide (Maalox) 30 ml PO Q4H PRN PRN Reason: Indigestion Albuterol/Ipratropium (Duoneb) 3 ml NEB [id number] PRN PRN Reason: SHORTNESS OF BREATH Aspirin (Aspirin) 325 mg PO DAILY [facility] Last Admin: 06/13/19 08:34 Dose: 325 mg Bisacodyl (Dulcolax) 10 mg PO Q12H PRN PRN Reason: Constipation Bisacodyl (Dulcolax) 10 mg [place] Q12H PRN PRN Reason: Constipation Carvedilol (Coreg) 3.125 mg PO BID-[facility] Dextrose/Water (Dextrose 50%) 25 gm IVP PRN PRN PRN Reason: HYPOGLYCEMIA PROTOCOL Famotidine (Pepcid) 20 mg PO BID [facility] Last Admin: 06/13/19 08:35 Dose: 20 mg Furosemide (Lasix) 40 mg PO DAILY [facility] Last Admin: 06/13/19 08:35 Dose: 40 mg Glipizide (Glucotrol Xl) 2.5 mg PO [facility] Last Admin: 06/13/19 08:35 Dose: 2.5 mg Glucagon (Glucagon) 1 mg IM PRN PRN PRN Reason: HYPOGLYCEMIA PROTOCOL Guaifenesin/Dextromethorphan (Robitussin Dm) 15 ml PO Q4H PRN PRN Reason: Cough Dextrose/Water (D5w) 1,000 mls @ 0 mls/hr IV INF PRN PRN Reason: HYPOGLYCEMIA PROTOCOL Insulin Human Regular (Humulin R) 0 units SC .MILD SLIDING PRN; Protocol PRN Reason: MILD SLIDING SCALE Insulin Human Regular (Humulin R) 0 units SC .BEDTIME SLIDING SC PRN; Protocol PRN Reason: BEDTIME SLIDING SCALE Last Admin: 06/12/19 21:35 Dose: 2 unit Lisinopril (Zestril) 5 mg PO HS [facility] Metformin HCl (Glucophage) 1,000 mg PO BID-WM [facility] Mineral Oil (Fleet Mineral Oil) 133 ml [place] DAILYPRN PRN PRN Reason: Constipation Nitroglycerin (Nitrostat) 0.4 mg SL Q5MIN PRN PRN Reason: Chest Pain Ondansetron HCl (Zofran) 4 mg IVP Q6H PRN PRN Reason: Nausea/Vomiting Polyethylene Glycol (Miralax) 17 gm PO DAILY [facility] Last Admin: 06/13/19 08:34 Dose: 17 gm Potassium Chloride (Klor-Con 10) 10 meq PO QAM-[facility] Last Admin: 06/13/19 08:34 Dose: 10 meq Rosuvastatin Calcium (Crestor) 20 mg PO HS [facility] Last Admin: 06/12/19 20:19 Dose: 20 mg Vital Signs & Weight: Vital Signs Temp Pulse Pulse Pulse Resp BP BP 06/13/19 10:13 74 82 148/63 H 136/62 06/13/19 07:11 98 F 60 18 06/13/19 03:51 98.5 F 82 18 BP Pulse Ox Pulse Ox Pulse Ox 06/13/19 10:13 97 97 06/13/19 07:11 141/62 H 98 06/13/19 03:51 174/94 H 96 Weight 176 lb 3.2 oz - Physical Exam General: alert & oriented x3 HEENT: mucus membranes moist Neck: supple neck Cardiac: regular rate and rhythm, S1/S2 Lungs: clear to auscultation, decreased breath sounds Neuro: cranial nerve 2-12 intact Abdomen: unremarkable Musculoskeletal: decreased range of motion - Labs Result Diagrams: 06/13/19 03:39 06/13/19 03:39 - Telemetry Sinus rhythms and dysrhythmias: sinus rhythm - Assessment/Plan Assessment/Plan: 1. CAD with s/p CABG x2 on 06/11/2019 with [place]-LAD and SVG-ramus - stable with coreg, lisinopril, ASA, and statin; 2. Acute on Chronic Systolic HF - stable with Lasix 40mg qd, coreg, lisinopril, ASA, and statin; 3. DM type 2 - on ACHS SS 4. HTN - stable 5. HLD - on Statin MAR reviewed Pt. seen and eval. by me. I agree with the A/P by the CONDENSER TESTER. The HR is still elevated. Coreg was started. May increase the dose as tolerated. She is fatigued today. chest : clear. RRR. Incisions okay.
[2019-06-13] MEDS ORDERED: Carvedilol 3.125 MG TAB PO SCH (17:00)
--- NOTE | 2019-06-13 20:52 | RAD ---
Portable frontal chest radiograph: 06/13/2019 COMPARISON: 06/12/2019 HISTORY: Shortness of breath, rapid ventricular rate FINDINGS: Stable midline sternotomy wires. Stable right vascular catheter. There is dense opacity in the left base suggesting partial consolidation/collapse of the left lower lobe. Aeration within the left base has slightly worsened since the prior exam. Drainage catheters have been removed since the prior examination. IMPRESSION: Nonspecific increased density within the left lung base. Postoperative changes as detaile d above.
[2019-06-13] MEDS ORDERED: Furosemide 40 MG/4 ML VIAL SLOW IVP SCH (21:45)
[2019-06-13] MEDS: Lisinopril 5 MG TAB PO SCH (22:22)
[2019-06-13] MEDS: Rosuvastatin 20 MG TAB PO SCH (22:22)
[2019-06-14] MEDS: HYDROcodone/Acetaminophen 5/325 mg Tablet PO PRN ×2 (04:04→17:16)
[2019-06-14 04:27] LABS: #Eosinphils 0.2 thou/uL (0.0-0.7); #Lymphocytes 1.7 thou/uL (1.20-3.40); #Neutrophils 8.4 thou/uL (1.40-6.50); %Basophils 0.1 % (0.0-1.0); %Eosinophils 1.4 % (0.0-10.0); %Lymphocytes 15.1 % (21.0-51.0); %Monocytes 8.9 % (0.0-10.0); %Neutrophils 74.4 % (42.0-75.0); Hemoglobin 8.4 g/dL (12.0-16.0); Mean Corpuscular HGB CONC 32.5 g/dL (32.0-36.0); Mean Corpuscular Hemoglobin 29.6 pg (27.0-31.0); Mean Corpuscular Volume 91.1 fL (78.0-98.0); Mean Platelet Volume 9.3 fL (7.4-10.4); Platelet Count 162 thou/uL (130-400); RBC Distribution Width 13.5 % (11.5-14.5); Red Blood Cell (RBC) Count 2.83 mill/uL (4.20-5.40); White Blood Cell (WBC) Count 11.2 thou/uL (4.8-10.8)
[2019-06-14 04:47] LABS: Anion Gap 12 mmol/L (10-20); BUN (Urea Nitrogen) 32 mg/dL (9.8-20.1); Calc. Creatinine Clearance 49 mL/min (70-130); Calcium 8.4 mg/dL (7.8-10.44); Carbon Dioxide 26 mmol/L (23-31); Chloride 105 mmol/L (98-107); Estimated GFR-MDRD 47; Glucose 133 mg/dL (80-115); Potassium 4.2 mmol/L (3.5-5.1); Sodium 139 mmol/L (136-145)
[2019-06-14] MEDS ORDERED: Sodium Chloride 0.9% 10 ML ONE (08:39)
[2019-06-14] MEDS: Furosemide 40 MG TAB PO SCH (08:59)
[2019-06-14] MEDS: Potassium Chloride 10 MEQ TAB PO SCH (08:59)
[2019-06-14] MEDS: Carvedilol 3.125 MG TAB PO SCH ×2 (08:59→17:31)
[2019-06-14] MEDS: metFORMIN 500 MG TAB PO SCH ×2 (08:59→17:33)
[2019-06-14] MEDS: Aspirin 325 MG TAB PO SCH (09:00)
[2019-06-14] MEDS: Polyethylene Glycol 3350 17 GM Packet PO SCH (09:00)
[2019-06-14] MEDS: Insulin Regular 300 UNITS/3 ML VIAL SC PRN ×2 (09:06→17:35)
--- NOTE | 2019-06-14 12:53 | PRG ---
DATE OF SERVICE: 06/14/2019 SUBJECTIVE: This morning, she is better. Last night, she was having some difficulty breathing and mucus congestion. X-ray was ordered, which looks stable. OBJECTIVE: VITAL SIGNS: Temperature 100.2 this morning. Saturations are 98% on room air, respiratory rate 18, and blood pressure 135/60. CHEST: No wheezing or crackles. CARDIAC: Normal S1 and S2. No gallops. ABDOMEN: No masses. LABORATORY DATA: Creatinine is 1.34. PLAN: Schedule neb treatments q.6. Supportive care and PT. Job ID: [id number]
--- NOTE | 2019-06-14 16:24 | PDOC.CPN ---
- Subjective Date: 06/14/19 Time: 14:00 Interval history: The pt seen and examined. No overnight events. No cardiac complaints. She walked with PT today without any cardiac complaints. - Objective Allergies/Adverse Reactions: Allergies Allergy/AdvReac Type Severity Reaction Status Date / Time Sulfa (Sulfonamide Allergy Unknown Verified 06/04/19 09:22 Antibiotics) Visit Medications: Current Medications Acetaminophen (Tylenol) 650 mg PO Q6H PRN PRN Reason: Headache/Fever Or Mild Pain Hydrocodone Bitart/Acetaminophen ([place] 5/325) 1 tab PO Q4H PRN PRN Reason: Moderate Pain (4-6) Last Admin: 06/14/19 04:04 Dose: 1 tab Al Hydroxide/Mg Hydroxide (Maalox) 30 ml PO Q4H PRN PRN Reason: Indigestion Albuterol/Ipratropium (Duoneb) 3 ml NEB [id number] [facility] Last Admin: 06/14/19 13:40 Dose: 3 ml Aspirin (Aspirin) 325 mg PO DAILY [facility] Last Admin: 06/14/19 09:00 Dose: 325 mg Bisacodyl (Dulcolax) 10 mg PO Q12H PRN PRN Reason: Constipation Bisacodyl (Dulcolax) 10 mg [place] Q12H PRN PRN Reason: Constipation Carvedilol (Coreg) 6.25 mg PO BID-WM [facility] Last Admin: 06/14/19 08:59 Dose: 6.25 mg Dextrose/Water (Dextrose 50%) 25 gm IVP PRN PRN PRN Reason: HYPOGLYCEMIA PROTOCOL Famotidine (Pepcid) 20 mg PO 2100 [facility] Furosemide (Lasix) 40 mg PO DAILY [facility] Last Admin: 06/14/19 08:59 Dose: 40 mg Glipizide (Glucotrol Xl) 2.5 mg PO QAM-[facility] Last Admin: 06/14/19 08:59 Dose: 2.5 mg Glucagon (Glucagon) 1 mg IM PRN PRN PRN Reason: HYPOGLYCEMIA PROTOCOL Guaifenesin/Dextromethorphan (Robitussin Dm) 15 ml PO Q4H PRN PRN Reason: Cough Dextrose/Water (D5w) 1,000 mls @ 0 mls/hr IV INF PRN PRN Reason: HYPOGLYCEMIA PROTOCOL Insulin Human Regular (Humulin R) 0 units SC .MILD SLIDING PRN; Protocol PRN Reason: MILD SLIDING SCALE Last Admin: 06/14/19 09:06 Dose: 2 unit Insulin Human Regular (Humulin R) 0 units SC .BEDTIME SLIDING SC PRN; Protocol PRN Reason: BEDTIME SLIDING SCALE Last Admin: 06/12/19 21:35 Dose: 2 unit Lisinopril (Zestril) 5 mg PO [facility] Last Admin: 06/13/19 22:22 Dose: 5 mg Metformin HCl (Glucophage) 1,000 mg PO BID-[facility] Last Admin: 06/14/19 08:59 Dose: 1,000 mg Mineral Oil (Fleet Mineral Oil) 133 ml [place] DAILYPRN PRN PRN Reason: Constipation Nitroglycerin (Nitrostat) 0.4 mg SL Q5MIN PRN PRN Reason: Chest Pain Ondansetron HCl (Zofran) 4 mg IVP Q6H PRN PRN Reason: Nausea/Vomiting Polyethylene Glycol (Miralax) 17 gm PO DAILY [facility] Last Admin: 06/14/19 09:00 Dose: 17 gm Potassium Chloride (Klor-Con 10) 10 meq PO QAM-[facility] Last Admin: 06/14/19 08:59 Dose: 10 meq Rosuvastatin Calcium (Crestor) 20 mg PO [facility] Last Admin: 06/13/19 22:22 Dose: 20 mg Vital Signs & Weight: Vital Signs Temp Pulse Pulse Pulse Resp BP BP 06/14/19 14:02 75 74 127/53 L 127/58 L 06/14/19 13:41 06/14/19 13:40 94 16 06/14/19 12:00 98.2 F 74 18 06/14/19 08:00 99.1 F 69 16 BP Pulse Ox Pulse Ox Pulse Ox 06/14/19 14:02 94 L 94 L 06/14/19 13:41 92 L 06/14/19 13:40 06/14/19 12:00 123/56 L 92 L 06/14/19 08:00 135/60 92 L Weight 174 lb 4.8 oz - Physical Exam General: alert & oriented x3 Neck: supple neck Cardiac: regular rate and rhythm, S1/S2 Lungs: clear to auscultation, decreased breath sounds Skin: clear Musculoskeletal: decreased range of motion - Labs Result Diagrams: 06/14/19 03:58 06/14/19 03:58 - Telemetry Sinus rhythms and dysrhythmias: sinus rhythm - Assessment/Plan Assessment/Plan: 1. CAD with s/p CABG x2 on 06/11/2019 with LAWTON-LAD and SVG-ramus - stable with coreg, lisinopril, ASA, and statin; 2. Acute on Chronic Systolic HF - stable with Lasix 40mg qd, coreg, lisinopril, ASA, and statin; 3. DM type 2 - on ACHS SS 4. HTN - stable 5. HLD - on Statin MAR reviewed
[2019-06-14] MEDS: Famotidine 20 MG TAB PO SCH (22:25)
[2019-06-14] MEDS: Lisinopril 5 MG TAB PO SCH (22:26)
[2019-06-14] MEDS: Rosuvastatin 20 MG TAB PO SCH (22:26)
[2019-06-15 05:34] LABS: #Eosinphils 0.2 thou/uL (0.0-0.7); #Lymphocytes 1.7 thou/uL (1.20-3.40); #Monocytes 0.8 thou/uL (0.11-0.59); #Neutrophils 6.1 thou/uL (1.40-6.50); %Eosinophils 2.6 % (0.0-10.0); %Lymphocytes 19.5 % (21.0-51.0); %Monocytes 8.9 % (0.0-10.0); Mean Corpuscular HGB CONC 32.1 g/dL (32.0-36.0); Mean Corpuscular Volume 90.3 fL (78.0-98.0); Mean Platelet Volume 9.2 fL (7.4-10.4); Platelet Count 216 thou/uL (130-400); RBC Distribution Width 13.4 % (11.5-14.5); Red Blood Cell (RBC) Count 2.76 mill/uL (4.20-5.40); White Blood Cell (WBC) Count 8.8 thou/uL (4.8-10.8)
[2019-06-15 05:56] LABS: Anion Gap 11 mmol/L (10-20); BUN (Urea Nitrogen) 45 mg/dL (9.8-20.1); Calc. Creatinine Clearance 41 mL/min (70-130); Calcium 8.5 mg/dL (7.8-10.44); Carbon Dioxide 25 mmol/L (23-31); Chloride 106 mmol/L (98-107); Estimated GFR-MDRD 39; Glucose 93 mg/dL (80-115); Potassium 4.3 mmol/L (3.5-5.1); Sodium 138 mmol/L (136-145)
--- NOTE | 2019-06-15 08:42 | PDOC.CPN ---
- Subjective Date: 06/15/19 Time: 08:38 Interval history: No complaints Ambulating some DIscussed lifevest Currently not interested in wearing it. It is currently at home - Objective Allergies/Adverse Reactions: Allergies Allergy/AdvReac Type Severity Reaction Status Date / Time Sulfa (Sulfonamide Allergy Unknown Verified 06/04/19 09:22 Antibiotics) Visit Medications: Current Medications Acetaminophen (Tylenol) 650 mg PO Q6H PRN PRN Reason: Headache/Fever Or Mild Pain Last Admin: 06/14/19 23:53 Dose: 650 mg Hydrocodone Bitart/Acetaminophen ([place] 5/325) 1 tab PO Q4H PRN PRN Reason: Moderate Pain (4-6) Last Admin: 06/14/19 17:16 Dose: 1 tab Al Hydroxide/Mg Hydroxide (Maalox) 30 ml PO Q4H PRN PRN Reason: Indigestion Albuterol/Ipratropium (Duoneb) 3 ml NEB [id number] [facility] Last Admin: 06/15/19 06:28 Dose: 3 ml Aspirin (Aspirin) 325 mg PO DAILY [facility] Last Admin: 06/14/19 09:00 Dose: 325 mg Bisacodyl (Dulcolax) 10 mg PO Q12H PRN PRN Reason: Constipation Bisacodyl (Dulcolax) 10 mg [place] Q12H PRN PRN Reason: Constipation Carvedilol (Coreg) 6.25 mg PO BID-WM [facility] Last Admin: 06/14/19 17:31 Dose: 6.25 mg Dextrose/Water (Dextrose 50%) 25 gm IVP PRN PRN PRN Reason: HYPOGLYCEMIA PROTOCOL Famotidine (Pepcid) 20 mg PO 2100 [facility] Last Admin: 06/14/19 22:25 Dose: 20 mg Glipizide (Glucotrol Xl) 5 mg PO QAM-[facility] Glucagon (Glucagon) 1 mg IM PRN PRN PRN Reason: HYPOGLYCEMIA PROTOCOL Guaifenesin/Dextromethorphan (Robitussin Dm) 15 ml PO Q4H PRN PRN Reason: Cough Dextrose/Water (D5w) 1,000 mls @ 0 mls/hr IV INF PRN PRN Reason: HYPOGLYCEMIA PROTOCOL Insulin Human Regular (Humulin R) 0 units SC .MILD SLIDING PRN; Protocol PRN Reason: MILD SLIDING SCALE Last Admin: 06/14/19 17:35 Dose: 2 unit Insulin Human Regular (Humulin R) 0 units SC .BEDTIME SLIDING SC PRN; Protocol PRN Reason: BEDTIME SLIDING SCALE Last Admin: 06/12/19 21:35 Dose: 2 unit Mineral Oil (Fleet Mineral Oil) 133 ml [place] DAILYPRN PRN PRN Reason: Constipation Nitroglycerin (Nitrostat) 0.4 mg SL Q5MIN PRN PRN Reason: Chest Pain Ondansetron HCl (Zofran) 4 mg IVP Q6H PRN PRN Reason: Nausea/Vomiting Polyethylene Glycol (Miralax) 17 gm PO DAILY [facility] Last Admin: 06/14/19 09:00 Dose: 17 gm Rosuvastatin Calcium (Crestor) 20 mg PO [facility] Last Admin: 06/14/19 22:26 Dose: 20 mg Vital Signs & Weight: Vital Signs Temp Pulse Resp BP BP BP BP 06/15/19 07:28 98.8 F 71 19 143/66 H 06/15/19 06:28 70 20 06/15/19 05:12 06/15/19 05:05 98.1 F 70 113/55 L 06/15/19 00:26 56 L 12 06/14/19 23:51 76 111/57 L 06/14/19 22:26 67 98/52 L 06/14/19 22:18 98.2 F 67 18 98/52 L Pulse Ox 06/15/19 07:28 95 06/15/19 06:28 92 L 06/15/19 05:12 98 06/15/19 05:05 88 L 06/15/19 00:26 90 L 06/14/19 23:51 06/14/19 22:26 06/14/19 22:18 96 Weight 174 lb 9.6 oz - Physical Exam General: alert & oriented x3 HEENT: mucus membranes moist Neck: supple neck Cardiac: regular rate and rhythm Lungs: clear to auscultation Neuro: grossly intact Abdomen: unremarkable Skin: clear Musculoskeletal: no pain - Labs Result Diagrams: 06/15/19 04:50 06/15/19 04:50 - Problem (1) Acute systolic CHF (congestive heart failure) Code(s): I50.21 - ACUTE SYSTOLIC (CONGESTIVE) HEART FAILURE Assessment and Plan: On BB, statin ASA Hold ARB, ACEI secondary to [place] BP stable Appears euvolemic Not interested in lifevest and understands risk of SCD (2) S/P CABG (coronary artery bypass graft) Code(s): Z95.1 - PRESENCE OF AORTOCORONARY BYPASS GRAFT Assessment and Plan: see above (3) Coronary artery disease Code(s): I25.10 - ATHSCL HEART DISEASE OF [place] CORONARY ARTERY W/O ANG PCTRS Qualifiers: Coronary Disease-Associated Artery/Lesion type: bypass graft Assessment and Plan: IS and rehab ?IP rehab (4) Diabetes mellitus Code(s): E11.9 - TYPE 2 DIABETES MELLITUS WITHOUT COMPLICATIONS
[2019-06-15] MEDS: Carvedilol 3.125 MG TAB PO SCH ×2 (09:16→15:47)
[2019-06-15] MEDS: Aspirin 325 MG TAB PO SCH (09:17)
[2019-06-15] MEDS: Polyethylene Glycol 3350 17 GM Packet PO SCH (09:17)
--- NOTE | 2019-06-15 11:45 | PRG ---
DATE OF SERVICE: 06/15/2019 SUBJECTIVE: This morning, she states she is feeling better. No longer having secretion issues. OBJECTIVE: VITAL SIGNS: Sats are 98% on room air, temperature 98, pulse 71, blood pressure 120/59. CHEST: No wheezing or crackle. CARDIAC: Normal S1, S2. No gallops. ABDOMEN: No masses. LABORATORY DATA: Hemoglobin 8, hematocrit 25, creatinine 1.5. IMPRESSION: Status post coronary artery bypass grafting, cough, secretions, diabetes. PLAN: Pulmonary mason, she appears to be stable. She will be followed by Cardiology and Pulmonary, follow at a distance, please call if needed. Job ID: [id number]
[2019-06-15] MEDS: Insulin Regular 300 UNITS/3 ML VIAL SC PRN (16:44)
[2019-06-15] MEDS: Rosuvastatin 20 MG TAB PO SCH (20:43)
[2019-06-15] MEDS: Famotidine 20 MG TAB PO SCH (20:43)
[2019-06-16] MEDS: HYDROcodone/Acetaminophen 5/325 mg Tablet PO PRN (03:09)
[2019-06-16 04:36] LABS: #Eosinphils 0.3 thou/uL (0.0-0.7); #Lymphocytes 1.3 thou/uL (1.20-3.40); #Monocytes 0.8 thou/uL (0.11-0.59); #Neutrophils 5.3 thou/uL (1.40-6.50); %Basophils 0.3 % (0.0-1.0); %Eosinophils 3.8 % (0.0-10.0); %Lymphocytes 16.8 % (21.0-51.0); %Neutrophils 69.1 % (42.0-75.0); Hemoglobin 8.3 g/dL (12.0-16.0); Mean Corpuscular HGB CONC 32.4 g/dL (32.0-36.0); Mean Corpuscular Hemoglobin 29.1 pg (27.0-31.0); Mean Corpuscular Volume 89.6 fL (78.0-98.0); Mean Platelet Volume 8.1 fL (7.4-10.4); Platelet Count 248 thou/uL (130-400); RBC Distribution Width 13.5 % (11.5-14.5); Red Blood Cell (RBC) Count 2.87 mill/uL (4.20-5.40); White Blood Cell (WBC) Count 7.7 thou/uL (4.8-10.8)
[2019-06-16 04:55] LABS: Anion Gap 12 mmol/L (10-20); BUN (Urea Nitrogen) 40 mg/dL (9.8-20.1); Calc. Creatinine Clearance 48 mL/min (70-130); Calcium 8.4 mg/dL (7.8-10.44); Carbon Dioxide 23 mmol/L (23-31); Chloride 106 mmol/L (98-107); Estimated GFR-MDRD 47; Glucose 109 mg/dL (80-115); Potassium 4.3 mmol/L (3.5-5.1); Sodium 137 mmol/L (136-145)
--- NOTE | 2019-06-16 06:20 | PDOC.CPN ---
- Objective Allergies/Adverse Reactions: Allergies Allergy/AdvReac Type Severity Reaction Status Date / Time Sulfa (Sulfonamide Allergy Unknown Verified 06/04/19 09:22 Antibiotics) Visit Medications: Current Medications Acetaminophen (Tylenol) 650 mg PO Q6H PRN PRN Reason: Headache/Fever Or Mild Pain Last Admin: 06/14/19 23:53 Dose: 650 mg Hydrocodone Bitart/Acetaminophen ([place] 5/325) 1 tab PO Q4H PRN PRN Reason: Moderate Pain (4-6) Last Admin: 06/16/19 03:09 Dose: 1 tab Al Hydroxide/Mg Hydroxide (Maalox) 30 ml PO Q4H PRN PRN Reason: Indigestion Albuterol/Ipratropium (Duoneb) 3 ml NEB [id number] [facility] Last Admin: 06/15/19 23:17 Dose: 3 ml Aspirin (Aspirin) 325 mg PO DAILY [facility] Last Admin: 06/15/19 09:17 Dose: 325 mg Bisacodyl (Dulcolax) 10 mg PO Q12H PRN PRN Reason: Constipation Bisacodyl (Dulcolax) 10 mg [place] Q12H PRN PRN Reason: Constipation Carvedilol (Coreg) 6.25 mg PO BID-[facility] Last Admin: 06/15/19 15:47 Dose: 6.25 mg Dextrose/Water (Dextrose 50%) 25 gm IVP PRN PRN PRN Reason: HYPOGLYCEMIA PROTOCOL Famotidine (Pepcid) 20 mg PO 2100 [facility] Last Admin: 06/15/19 20:43 Dose: 20 mg Glipizide (Glucotrol Xl) 5 mg PO QAM-[facility] Last Admin: 06/15/19 09:17 Dose: 5 mg Glucagon (Glucagon) 1 mg IM PRN PRN PRN Reason: HYPOGLYCEMIA PROTOCOL Guaifenesin/Dextromethorphan (Robitussin Dm) 15 ml PO Q4H PRN PRN Reason: Cough Dextrose/Water (D5w) 1,000 mls @ 0 mls/hr IV INF PRN PRN Reason: HYPOGLYCEMIA PROTOCOL Insulin Human Regular (Humulin R) 0 units SC .MILD SLIDING PRN; Protocol PRN Reason: MILD SLIDING SCALE Last Admin: 06/15/19 16:44 Dose: 3 unit Insulin Human Regular (Humulin R) 0 units [place] .BEDTIME SLIDING [place] PRN; Protocol PRN Reason: BEDTIME SLIDING SCALE Last Admin: 06/12/19 21:35 Dose: 2 unit Mineral Oil (Fleet Mineral Oil) 133 ml [place] DAILYPRN PRN PRN Reason: Constipation Nitroglycerin (Nitrostat) 0.4 mg SL Q5MIN PRN PRN Reason: Chest Pain Ondansetron HCl (Zofran) 4 mg IVP Q6H PRN PRN Reason: Nausea/Vomiting Polyethylene Glycol (Miralax) 17 gm PO DAILY [facility] Last Admin: 06/15/19 09:17 Dose: 17 gm Rosuvastatin Calcium (Crestor) 20 mg PO HS [facility] Last Admin: 06/15/19 20:43 Dose: 20 mg Vital Signs & Weight: Vital Signs Temp Pulse Resp BP Pulse Ox 06/16/19 04:00 99.1 F 72 16 150/68 H 93 L 06/15/19 23:17 72 16 94 L 06/15/19 20:00 98.5 F 70 16 111/56 L 92 L 06/15/19 18:39 71 20 94 L Weight 175 lb 9.6 oz - Physical Exam General: alert & oriented x3 HEENT: mucus membranes moist Neck: supple neck Cardiac: regular rate and rhythm Lungs: clear to auscultation Neuro: grossly intact Abdomen: unremarkable Musculoskeletal: no pain - Labs Result Diagrams: 06/16/19 04:28 06/16/19 04:28 - Assessment/Plan Assessment/Plan: (1) Acute systolic CHF (congestive heart failure) Code(s): I50.21 - ACUTE SYSTOLIC (CONGESTIVE) HEART FAILURE Assessment and Plan: No changes. See below On BB, statin ASA Hold ARB, ACEI secondary to RI BP stable Appears euvolemic Not interested in lifevest and understands risk of SCD (2) S/P CABG (coronary artery bypass graft) Code(s): Z95.1 - PRESENCE OF AORTOCORONARY BYPASS GRAFT Assessment and Plan: see above (3) Coronary artery disease Code(s): I25.10 - ATHSCL HEART DISEASE OF [place] CORONARY ARTERY W/O ANG PCTRS Qualifiers: Coronary Disease-Associated Artery/Lesion type: bypass graft Assessment and Plan: IS and rehab ?IP rehab (4) Diabetes mellitus Code(s): E11.9 - TYPE 2 DIABETES MELLITUS WITHOUT COMPLICATIONS
[2019-06-16] MEDS: Carvedilol 3.125 MG TAB PO SCH (08:09)
[2019-06-16] MEDS: Polyethylene Glycol 3350 17 GM Packet PO SCH (08:10)
[2019-06-16] MEDS: Aspirin 325 MG TAB PO SCH (08:10)
[2019-06-16 12:10] VITALS: BP 160/56; TEMP 97.9
--- NOTE | 2019-06-17 01:56 | DIS ---
DATE OF ADMISSION: 06/10/2019 DATE OF DISCHARGE: 06/16/2019 HOSPITAL COURSE: The patient was admitted to the hospital with a history of heart failure, ejection fraction 25%. She underwent cardiac catheterization, found to have very proximal LAD disease extending into the left main. She underwent bypass grafting to the LAD and ramus receiving a unit of packed red cells with postoperative hemoglobin stabilizing at about 8 g. Postoperatively, attempts at diuresis were partially thwarted by rise in creatinine to 1.58, although it drifted back down to her normal levels after a less aggressive treatment of her blood pressure and diuresis. She will be discharged home on a dose of 6.25 of Coreg b.i.d., down from her 25 b.i.d. at home. She will also resume her diabetic medicines, her Lasix 40 mg a day. Discharge and followup instructions have been given. Job ID: [id number]
--- NOTE | 2019-06-18 14:21 | PQF ---
CLINICAL DOCUMENTATION IMPROVEMENT CLARIFICATION FORM: ICD-10 Updated PLEASE DO AN ADDENDUM TO THE PROGRESS NOTE WITH ANY DOCUMENTATION UPDATES OR ADDITIONS AND CARRY THROUGH TO DC SUMMARY. THANK YOU. DATE: 06/18/19 ATTN: DR. FAJARDO Please exercise your independent, professional judgment in responding to the clarification form. Clinical indicators are provided on the bottom of this form for your review Please check appropriate box(s): [ ] Acute Renal Failure (ARF) / Acute Kidney Injury (AMARA) [ ] Acute Tubular Necrosis (ATN) [ ] Acute Cortical Necrosis [ ] Acute Medullary Necrosis [ ] Other Etiology or underlying conditions related to the diagnosis of ARF/ AMARA: [ ] Acute Interstitial Nephritis (AIN) [ ] Other: [ ] Acute on Chronic Renal Failure please specify Stage of CKD (see below) [ ] CKD without ARF/AMARA please specify Stage of CKD [ ] ESRD [ ] Other diagnosis [ ] Unable to determine In addition, please specify: Present on Admission (POA): [ ] Yes [ ] No [ ] Unable to determine National Kidney Foundation Guidelines for CKD Staging Stage I Kidney damage with normal or increased GFRGFR > 90 Stage IIKidney damage with mildly decreased GFRGFR 60-89 Stage III Kidney damage with moderately decreased GFRGFR 30-59 Stage IVKidney damage with severely decreased GFRGFR 16-29 Stage VKidney failureGFR<15 ESRDEnd Stage Renal DiseaseOn dialysis Acute Renal Failure/Acute Kidney Failure defined as: Increases in SCr by (>) 0.3 mg/dl within 48 hours OR- Increases in SCr by (>) 1.5 times baseline, known or presumed to have occurred within the prior 7 days OR- Urine volume < 0.5 ml/kg/hour for 6 hours (KDIGO supplement 2012 for RIFLE/CONRADO criteria) For continuity of documentation, please document condition throughout progress notes and discharge summary. Thank You. CLINICAL INDICATORS - SIGNS / SYMPTOMS / LABS SAP Pin Puller Crystal Reports Winform Viewer PROGRESS NOTES 06/15-06/16: "HOLD ARB, LEENA SECONDARY TO RI" BUN 24 / CREAT 1.24 (06/13) BUN 45 / CREAT 1.58 (06/15) BUN 40 / CREAT 1.35 (06/16) RISKS: H/O CHF (PHYSICIAN'S OFFICE H&P 06/10) HTN (PHYSICIAN'S OFFICE H&P 06/10) TREATMENT: SERIAL LABS IV FLUIDS (06/10) HOLD ARB, LEENA (PROGRESS NOTE 06/15) (This form is maintained as a part of the permanent medical record) 2014 [email or web address]. All Rights Reserved [email or web address] [email or web address] Office: [phone] AYAD
== END 2019-06-16 13:10 | disposition home or self-care (01) | DRG 233 ==
LOC: CCL 06:03 → 2NO 10:34 → CCU 06-11 07:44 → 2NO 06-12 10:17
PROVIDERS: ADMIT Internal Medicine Cardiovascular Disease; ATTEND Internal Medicine Cardiovascular Disease
PROC: 4A023N7 Measurement of Cardiac Sampling and Pressure, Left Heart, Percutaneous Approach (ICD-10-PCS; 2019-06-10)
PROC: B2151ZZ Fluoroscopy of Left Heart using Low Osmolar Contrast (ICD-10-PCS; 2019-06-10)
PROC: B2111ZZ Fluoroscopy of Multiple Coronary Arteries using Low Osmolar Contrast (ICD-10-PCS; 2019-06-10)
PROC: 02100Z9 Bypass Coronary Artery, One Artery from Left Internal Mammary, Open Approach (ICD-10-PCS; principal; 2019-06-11)
PROC: 021009W Bypass Coronary Artery, One Artery from Aorta with Autologous Venous Tissue, Open Approach (ICD-10-PCS; 2019-06-11)
PROC: 06BQ0ZZ Excision of Left Saphenous Vein, Open Approach (ICD-10-PCS; 2019-06-11)
PROC: B245ZZ4 Ultrasonography of Left Heart, Transesophageal (ICD-10-PCS; 2019-06-11)
PROC: 5A1221Z Performance of Cardiac Output, Continuous (ICD-10-PCS; 2019-06-11)
PROC: 30233N1 Transfusion of Nonautologous Red Blood Cells into Peripheral Vein, Percutaneous Approach (ICD-10-PCS; 2019-06-11)
DX: I25.10 Atherosclerotic heart disease of native coronary artery without angina pectoris (principal); I50.23 Acute on chronic systolic (congestive) heart failure; I42.0 Dilated cardiomyopathy; M19.90 Unspecified osteoarthritis, unspecified site; E11.9 Type 2 diabetes mellitus without complications; I11.0 Hypertensive heart disease with heart failure; E78.5 Hyperlipidemia, unspecified; I34.0 Nonrheumatic mitral (valve) insufficiency; E78.00 Pure hypercholesterolemia, unspecified; R79.89 Other specified abnormal findings of blood chemistry; Z87.891 Personal history of nicotine dependence; Z90.710 Acquired absence of both cervix and uterus; Z88.2 Allergy status to sulfonamides; Z79.899 Other long term (current) drug therapy; Z79.84 Long term (current) use of oral hypoglycemic drugs; Z79.82 Long term (current) use of aspirin
CPT/HCPCS: 36415; 36416; 36430; 71045; 76936; 76942; 80048; 82805; 85025; 85610; 85730; 86850; 86900; 86901; 87086; 93005; 93010; 93312; 93458; 93798; 94640; 99152; C1760; C1769; J0360; J0690; J1100; J1265; J1642; J1644; J1815; J1885; J1940; J2001; J2150; J2250; J2260; J2405; J2440; J2704; J2720; J3010; J3370; J3475; J3480; J3490; J7050; J7070; J7620; P9016; P9045; Q9967; S0017; S0028

== ENCOUNTER 2019-08-30 10:24 | Inpatient (IN) | payer MEDICARE ==
[2019-08-30 10:58] LABS: #Basophils 0.1 thou/uL (0.0-0.2); #Eosinphils 0.2 thou/uL (0.0-0.7); #Monocytes 0.5 thou/uL (0.11-0.59); #Neutrophils 6.1 thou/uL (1.40-6.50); %Basophils 0.6 % (0.0-1.0); %Eosinophils 2.4 % (0.0-10.0); %Lymphocytes 22.5 % (21.0-51.0); %Monocytes 5.3 % (0.0-10.0); %Neutrophils 69.2 % (42.0-75.0); Hemoglobin 11.7 g/dL (12.0-16.0); Mean Corpuscular HGB CONC 30.9 g/dL (32.0-36.0); Mean Corpuscular Hemoglobin 26.9 pg (27.0-31.0); Mean Corpuscular Volume 87.3 fL (78.0-98.0); Mean Platelet Volume 9.3 fL (7.4-10.4); Platelet Count 284 thou/uL (130-400); RBC Distribution Width 15.5 % (11.5-14.5); Red Blood Cell (RBC) Count 4.35 mill/uL (4.20-5.40); White Blood Cell (WBC) Count 8.8 thou/uL (4.8-10.8)
--- NOTE | 2019-08-30 11:07 | RAD ---
XR Chest 1 View Portable HISTORY: Shortness of breath COMPARISON: 06/12/2019 exam. FINDINGS: Heart size is enlarged with some mild vascular engorgement but no overt edema. There are so me mild chronic appearing lung changes seen. IMPRESSION: Cardiomegaly with postop sternotomy changes. Mild vascular engorgement but no overt edema .
[2019-08-30 11:22] LABS: ALT (SGPT) 18 U/L (8-55); AST (SGOT) 30 U/L (5-34); Alkaline Phosphatase 107 U/L (40-110); Anion Gap 14 mmol/L (10-20); BUN (Urea Nitrogen) 22 mg/dL (9.8-20.1); Bilirubin, Total 0.7 mg/dL (0.2-1.2); CK (CPK) 88 U/L (29-168); Calc. Creatinine Clearance 0 mL/min (70-130); Calcium 9.7 mg/dL (7.8-10.44); Carbon Dioxide 29 mmol/L (23-31); Chloride 103 mmol/L (98-107); Estimated GFR-MDRD 59; Globulin 4.3 g/dL (2.4-3.5); Glucose 177 mg/dL (80-115); Potassium 3.8 mmol/L (3.5-5.1); Protein, Total 8.3 g/dL (6.0-8.3); Sodium 142 mmol/L (136-145)
[2019-08-30] MEDS ORDERED: Nitroglycerin 0.4 MG TAB 1 EACH ONE (11:26)
[2019-08-30] MEDS ORDERED: Nitroglycerin 2% Ointment 1 INCH/1 GM Packet ONE (11:26)
[2019-08-30 11:47] LABS: CKMB 1.8 ng/mL (0-6.6)
[2019-08-30] MEDS ORDERED: Furosemide 100 MG/10 ML VIAL ONE (12:05)
[2019-08-30] MEDS ORDERED: Dextrose 50% Abboject 50 ML SYRINGE SLOW IVP PRN (14:23)
[2019-08-30] MEDS ORDERED: Dextrose 5% in Water 1,000 ML IV PRN (14:23)
[2019-08-30] MEDS ORDERED: Ondansetron PF 4 MG/2 ML Vial IVP PRN (14:23)
[2019-08-30] MEDS ORDERED: Senokot S 8.6-50 MG TAB PO PRN (14:23)
[2019-08-30] MEDS ORDERED: Guaifenesin DM 100-10/5 ML UDCUP PO PRN (14:23)
[2019-08-30] MEDS ORDERED: Bisacodyl 10 MG SUPP PR PRN (14:23)
[2019-08-30] MEDS ORDERED: HumaLOG 300 UNITS/3 ML VIAL SC PRN ×2 (14:23)
[2019-08-30] MEDS ORDERED: Acetaminophen 325 MG TAB PO PRN (14:23)
[2019-08-30] MEDS ORDERED: cloNIDine 0.1 MG TAB ONE (14:39)
[2019-08-30 14:43] LABS: Troponin I 0.069 ng/mL (< 0.028)
--- NOTE | 2019-08-30 15:02 | HP ---
REASON FOR ADMISSION: CHF exacerbation with systolic dysfunction and prior ejection fraction of around 25%. Acute respiratory failure with hypoxia, on nasal cannula at present. HISTORY OF PRESENTING ILLNESS: The patient gives history of developing shortness of breath from last 3 days. This has been progressively getting worse to the point that she could not do activities of daily living and called the EMS to come here. She normally ambulates with a cane or walker inside the house. She has no cough or fever. No chest pain or palpitation. Has severe orthopnea. The patient states she follows sodium-restricted diet and is compliant with her medications. No exposure to flu-like illness. She has been using oxygen from last 3 days now and is on 2 L per day. She in fact had plan on giving up on her oxygen as she was not using, but had to use it for last 3 days now. PAST MEDICAL AND SURGICAL HISTORY: History of two-vessel CABG done on May by Dr. Cotto, had LAWTON to LAD and reverse saphenous vein graft to ramus and a transesophageal echo done prior to procedure, which showed no findings of severe mitral regurgitation. Hypertension, diabetes mellitus type 2, dyslipidemia, osteoarthritis, and partial hysterectomy. CURRENT MEDICATIONS: Please note the patient does not recall any of her medications. As per recent discharge after CABG, the patient is on 1. Vitamin D3 of 2000 units p.o. daily. 2. Glipizide with metformin 5/500 mg p.o. twice daily. 3. Metolazone 2.5 mg p.r.n. for increasing weight/edema. 4. K-Dur 20 mEq p.o. daily. 5. Aspirin 325 mg daily. 6. Coreg 6.25 mg twice daily. 7. Lasix 40 mg daily. 8. Crestor 20 mg p.o. q.h.s. 9. Ultram p.r.n. for pain. ALLERGIES: ALLERGIC TO SULFA. PERSONAL HISTORY: Does not abuse alcohol or drugs. No history of smoking. FAMILY HISTORY: Mother at the age of 85 years. She has had history of chronic kidney disease. Father had multiple medical issues, at the age of 70. The patient lives alone, but has children living close by to help her out. CODE STATUS: Full. Power of refrigeration plant cork insulator is her daughter, Ms. Palmer. REVIEW OF SYSTEMS: CONSTITUTIONAL: Negative for weight loss or gain, ability to conduct usual activities. SKIN: Negative for rash, itching. EYES: Negative for double vision, pain. ENT/MOUTH: Negative for nose bleeding, neck stiffness, pain, tenderness. CARDIOVASCULAR: Negative for palpitations, dyspnea on exertion, orthopnea. RESPIRATORY: Negative for shortness of breath, wheezing, cough, hemoptysis, fever or night sweats. GASTROINTESTINAL: Negative for poor appetite, abdominal pain, heartburn, nausea , vomiting, constipation, or diarrhea. GENITOURINARY: Negative for urgency, frequency, dysuria, nocturia. MUSCULOSKELETAL: Negative for pain, swelling. NEUROLOGIC/PSYCHIATRIC: Negative for anxiety, depression. ALLERGY/IMMUNOLOGIC: Negative for skin rash, bleeding tendency. PHYSICAL EXAMINATION: GENERAL: The patient is a 68-year-old female, who is currently in mild-to- moderate respiratory distress. VITAL SIGNS: Blood pressure 184/100, pulse 104 per minute, respiratory rate 18 per minute, temperature 97.8 degrees Fahrenheit, and saturating 98% on 2 L nasal cannula. NECK: Supple. There is elevated JVD. HEENT: Eyes; pupils are reacting to light. Oral cavity, mucous membranes are moist. No exudates or congestion. CARDIOVASCULAR SYSTEM: S1 and S2 heard, regular rhythm. Loud S2. RESPIRATORY: Air entry 1+ bilateral. Scattered rales plus in the infrascapular area. ABDOMEN: Soft, bowel sounds heard. No tenderness, rigidity, or guarding. EXTREMITIES: Mild peripheral edema. No calf tenderness. VASCULAR SYSTEM: Peripheral pulses 1+ bilateral. No ischemic ulcerations or gangrene. CENTRAL NERVOUS SYSTEM: No gross focal deficits noted. The patient is alert, awake, oriented well. PSYCHIATRIC SYSTEM: The patient's mood is euthymic. No hallucinations or delusions. LABORATORY DATA: EKG done shows sinus tach with signs of LVH. Chest x-ray done shows pulmonary vascular congestion with cardiomegaly. White count of 8, H and H 11 and 38, platelet count is 284, MCV is 87, BUN 22, and creatinine 1.1. Electrolytes are stable. Serum glucose 177. ALT, AST, and alkaline phosphatase within normal limits. Troponin I 0.03, CK-MB 1.8. Albumin is 4.0. BNP is 2578. CLINICAL IMPRESSION AND PLAN: The patient will be admitted to telemetry for acute on chronic congestive heart failure exacerbation with systolic dysfunction. The patient will be gently diuresed with Lasix 40 mg IV q.12 hourly. We will add metolazone as well. The patient has hypertension, which is uncontrolled at present. We will continue her aspirin, Coreg, Crestor, and glipizide with metformin combination as before. A repeat echo with 2D Doppler for LV function will be obtained. The patient has had recent CABG and states she is compliant with her medications and sodium-restricted diet. She also has restricted fluid to not more than 2 L per day per the patient. We will consult Dr. Hand, her automatic fancy machine operator, during her stay here. We will continue to closely monitor her on telemetry. Not sure if she is compliant as she mentions it. She had refused life vest before during her last admission here. Job ID: [id number] [facility]
[2019-08-30] MEDS ORDERED: Carvedilol 3.125 MG TAB PO SCH (17:00)
[2019-08-30] MEDS: Carvedilol 6.25 MG TAB PO SCH (17:35)
[2019-08-30 19:09] VITALS: BMI 28.3
[2019-08-30] MEDS: Rosuvastatin 20 MG TAB PO SCH (20:34)
[2019-08-31 04:55] LABS: Hemoglobin 10.2 g/dL (12.0-16.0); Mean Platelet Volume 9.7 fL (7.4-10.4); Platelet Count 236 thou/uL (130-400); White Blood Cell (WBC) Count 6.7 thou/uL (4.8-10.8)
[2019-08-31 05:07] LABS: #Eosinphils 0.2 thou/uL (0.0-0.7); #Lymphocytes 2.1 thou/uL (1.20-3.40); #Monocytes 0.5 thou/uL (0.11-0.59); #Neutrophils 3.9 thou/uL (1.40-6.50); %Basophils 0.5 % (0.0-1.0); %Eosinophils 3.5 % (0.0-10.0); %Lymphocytes 31.6 % (21.0-51.0); %Monocytes 6.7 % (0.0-10.0); %Neutrophils 57.7 % (42.0-75.0); Mean Corpuscular Volume 87.2 fL (78.0-98.0); RBC Distribution Width 15.4 % (11.5-14.5); Red Blood Cell (RBC) Count 3.77 mill/uL (4.20-5.40)
[2019-08-31 05:21] LABS: Anion Gap 15 mmol/L (10-20); BUN (Urea Nitrogen) 24 mg/dL (9.8-20.1); Calc. Creatinine Clearance 61 mL/min (70-130); Calcium 9.1 mg/dL (7.8-10.44); Carbon Dioxide 26 mmol/L (23-31); Chloride 105 mmol/L (98-107); Estimated GFR-MDRD 68; Glucose 103 mg/dL (80-115); Potassium 3.6 mmol/L (3.5-5.1); Sodium 142 mmol/L (136-145)
[2019-08-31] MEDS: Furosemide 40 MG/4 ML VIAL SLOW IVP SCH ×2 (05:47→14:45)
[2019-08-31] MEDS: Famotidine 20 MG TAB PO SCH (08:32)
[2019-08-31] MEDS: Enoxaparin Sodium 30 MG/0.3 ML SYRINGE SC SCH (08:32)
[2019-08-31] MEDS: Carvedilol 6.25 MG TAB PO SCH ×2 (08:32→17:36)
[2019-08-31] MEDS: Aspirin Chewable 81 MG TAB PO SCH (08:32)
[2019-08-31] MEDS: Metolazone 5 MG TAB PO SCH (08:32)
[2019-08-31] MEDS ORDERED: FLU VACC TS2019-20(65YR UP)/PF 180 MCG/0.5 ML SYRINGE IM ONE (09:00)
[2019-08-31] MEDS ORDERED: Prevnar 13-Val Conj/PF 0.5 ML SYRINGE IM ONE (09:00)
--- NOTE | 2019-08-31 14:49 | PDOC.HOSPP ---
- Subjective Encounter Date: 08/31/19 Encounter Time: 11:55 Subjective: sob is better, is ambulating in room wants to go home in am was able to sleep better last night is diuresing well - Objective Vital Signs & Weight: Vital Signs (12 hours) Temp Pulse Pulse Resp BP BP BP 08/31/19 11:49 97.9 F 70 20 143/67 H 08/31/19 10:03 77 138/63 134/63 08/31/19 08:00 97.9 F 81 18 08/31/19 04:00 97.7 F 70 16 135/63 BP Pulse Ox Pulse Ox Pulse Ox 08/31/19 11:49 99 08/31/19 10:03 95 94 L 08/31/19 08:00 143/65 H 94 L 08/31/19 04:00 99 Weight Weight 157 lb 9.6 oz I&O: 08/30/19 08/31/19 09/01/19 06:59 06:59 06:59 Intake Total 600 Output Total 600 Balance 0 Result Diagrams: 08/31/19 04:17 08/31/19 04:17 Additional Labs: Accuchecks 08/31/19 08/31/19 08/30/19 11:05 05:44 19:33 POC Glucose 217 H 143 H 115 H Hospitalist ROS - Medication Medications: Active Medications Generic Name Dose Route Start Last Admin Trade Name Freq PRN Reason Stop Dose Admin Aspirin 81 mg 08/31/19 09:00 08/31/19 08:32 Aspirin Chewable PO 81 mg DAILY DAVID Administration Carvedilol 6.25 mg 08/30/19 17:00 08/31/19 08:32 Coreg PO 6.25 mg BID-WM DAVID Administration Enoxaparin Sodium 30 mg 08/31/19 09:00 08/31/19 08:32 Lovenox SC 30 mg 0900 DAVID Administration Famotidine 20 mg 08/31/19 09:00 08/31/19 08:32 Pepcid PO 20 mg DAILY DAVID Administration Furosemide 40 mg 08/31/19 06:00 08/31/19 14:45 Lasix SLOW IVP 40 mg 0600,1400 DAVID Administration Metolazone 5 mg 08/31/19 08:30 08/31/19 08:32 Zaroxolyn PO 5 mg 0830 DAVID Administration Rosuvastatin Calcium 20 mg 08/30/19 21:00 08/30/19 20:34 Crestor PO Not Given HS DAVID - Exam General Appearance: awake alert Eye: PERRL, anicteric sclera ENT: no oropharyngeal lesions, moist mucosa Neck: supple, no JVD Heart: RRR, no murmur Respiratory: no wheezes, no rales Gastrointestinal: soft, non-tender, non-distended, normal bowel sounds Extremities: no cyanosis, 1+ LE edema Neurological: cranial nerve grossly intact, no focal deficits Psychiatric: normal affect, A&O x 3 Hosp A/P (1) Acute systolic CHF (congestive heart failure) Code(s): I50.21 - ACUTE SYSTOLIC (CONGESTIVE) HEART FAILURE Status: Acute (2) Coronary artery disease Code(s): I25.10 - ATHSCL HEART DISEASE OF [place] CORONARY ARTERY W/O ANG PCTRS Status: Chronic Qualifiers: Coronary Disease-Associated Artery/Lesion type: bypass graft [place] vs. transplanted heart: [place] heart Associated angina: without angina Qualified Code(s): I25.810 - Atherosclerosis of coronary artery bypass graft(s) without angina pectoris (3) Diabetes mellitus Code(s): E11.9 - TYPE 2 DIABETES MELLITUS WITHOUT COMPLICATIONS Status: Chronic Qualifiers: Diabetes mellitus type: type 2 Diabetes mellitus ferry terminal agent insulin use: without ferry terminal agent use (4) Dyslipidemia Code(s): E78.5 - HYPERLIPIDEMIA, UNSPECIFIED Status: Chronic - Plan await echo results, prior ef was 25% before cabg on lasix, metolazone, coreg, lisinopril, asp, crestor continue metformin and glipizide hemostable cardiology consultation likely dc plan in am if cleared by cardiology
[2019-08-31] MEDS ORDERED: glipiZIDE 5 MG TAB PO SCH (17:30)
[2019-08-31] MEDS: metFORMIN 500 MG TAB PO SCH (17:36)
[2019-08-31] MEDS: traMADol HCl 50 MG TAB PO PRN (17:38)
[2019-08-31] MEDS: Rosuvastatin 20 MG TAB PO SCH (20:57)
[2019-09-01 05:06] LABS: #Basophils 0.1 thou/uL (0.0-0.2); #Eosinphils 0.3 thou/uL (0.0-0.7); #Lymphocytes 2.1 thou/uL (1.20-3.40); #Monocytes 0.7 thou/uL (0.11-0.59); %Basophils 1.1 % (0.0-1.0); %Eosinophils 3.8 % (0.0-10.0); %Lymphocytes 29.3 % (21.0-51.0); %Monocytes 9.2 % (0.0-10.0); %Neutrophils 56.6 % (42.0-75.0); Hemoglobin 10.2 g/dL (12.0-16.0); Mean Corpuscular HGB CONC 31.6 g/dL (32.0-36.0); Mean Corpuscular Hemoglobin 27.3 pg (27.0-31.0); Mean Corpuscular Volume 86.4 fL (78.0-98.0); Mean Platelet Volume 9.6 fL (7.4-10.4); Platelet Count 212 thou/uL (130-400); RBC Distribution Width 15.2 % (11.5-14.5); Red Blood Cell (RBC) Count 3.73 mill/uL (4.20-5.40); White Blood Cell (WBC) Count 7.1 thou/uL (4.8-10.8)
[2019-09-01] MEDS: Furosemide 40 MG/4 ML VIAL SLOW IVP SCH ×2 (05:31→14:17)
[2019-09-01 05:36] LABS: Anion Gap 12 mmol/L (10-20); BUN (Urea Nitrogen) 24 mg/dL (9.8-20.1); Calc. Creatinine Clearance 53 mL/min (70-130); Calcium 9.1 mg/dL (7.8-10.44); Carbon Dioxide 33 mmol/L (23-31); Chloride 99 mmol/L (98-107); Estimated GFR-MDRD 60; Glucose 110 mg/dL (80-115); Potassium 3.6 mmol/L (3.5-5.1); Sodium 140 mmol/L (136-145)
--- NOTE | 2019-09-01 08:17 | CON ---
DATE OF CONSULTATION: REASON FOR CONSULTATION: Acute on chronic systolic heart failure. HISTORY OF PRESENT ILLNESS: Ms. Mercer is a 68-year-old woman, who was seen and evaluated in the past. She has a history of CAD, status post bypass surgery recently. She states she had dietary indiscretion over the holidays. She had increased fluid and salt intake. She developed increased shortness of breath. No chest pain or pressure noted. The patient recently underwent bypass surgery in May 2019. PAST MEDICAL HISTORY: Acute on chronic systolic heart failure, entb-dt-manfurke coronary artery disease, hypertension, hyperlipidemia, diabetes mellitus, and hysterectomy. HOME MEDICATIONS: Include, 1. Crestor. 2. Levaquin. 3. Insulin. 4. Vitamin D3. 5. Tylenol. 6. Aspirin. 7. Xanax. 8. Lasix. REVIEW OF SYSTEMS: A 10-point review of systems is reviewed and as above, otherwise negative. PHYSICAL EXAMINATION: GENERAL: The patient is a pleasant female, who is in no acute distress. The patient appears their stated age. VITAL SIGNS: Blood pressure 147/72, pulse 70, and temperature 97.8. NEUROLOGIC: The patient is alert and oriented x3 with no focal neurologic deficits. HEENT: Sclerae without icterus. Mouth has moist mucous membranes with normal pallor. NECK: No JVD. Carotid upstroke brisk. No bruits bilaterally. LUNGS: Crackles noted bilaterally. BACK: No scoliosis or kyphosis. CARDIAC: Regular rate and rhythm with normal S1 and S2. No S3 or S4 noted. No significant rubs, murmurs, thrills, or gallops noted throughout the precordium. PMI is not displaced. There is no parasternal heave. ABDOMEN: Soft, nontender, nondistended. No peritoneal signs present. No hepatosplenomegaly. No abnormal striae. EXTREMITIES: 2+ femoral and 2+ dorsalis pedis pulses. No cyanosis, clubbing, or edema. SKIN: No gross abnormalities. PERTINENT LABORATORY DATA: Hemoglobin 10.2. Creatinine 0.98. BNP 2578. IMPRESSION: 1. Acute on chronic systolic heart failure. 2. Coronary artery disease. 3. Status post bypass surgery. RECOMMENDATIONS: 1. Continue Coreg 6.25 one p.o. b.i.d. Added Lasix 40 mg IV b.i.d. Continue lisinopril 5 mg daily and consider increasing. 2. Consider Entresto. 3. Servomechanism Designer the patient on low-salt and dietary discretion. Job ID: [id number]
[2019-09-01] MEDS: Metolazone 5 MG TAB PO SCH (09:21)
[2019-09-01] MEDS: Aspirin Chewable 81 MG TAB PO SCH (09:21)
[2019-09-01] MEDS: metFORMIN 500 MG TAB PO SCH ×2 (09:21→17:20)
[2019-09-01] MEDS: Carvedilol 6.25 MG TAB PO SCH ×2 (09:21→17:19)
[2019-09-01] MEDS: glipiZIDE 5 MG TAB PO SCH ×2 (09:21→17:19)
[2019-09-01] MEDS: Lisinopril 5 MG TAB PO SCH (09:22)
[2019-09-01] MEDS: Enoxaparin Sodium 30 MG/0.3 ML SYRINGE SC SCH (09:22)
[2019-09-01] MEDS: Famotidine 20 MG TAB PO SCH (09:22)
[2019-09-01] MEDS: traMADol HCl 50 MG TAB PO PRN (14:16)
--- NOTE | 2019-09-01 15:18 | PDOC.HOSPP ---
- Subjective Encounter Date: 09/01/19 Encounter Time: 12:00 Subjective: no sob or chest pain, is ambulating in room wants to go home - Objective Vital Signs & Weight: Vital Signs (12 hours) Temp Pulse Pulse Resp BP BP BP 09/01/19 12:14 98.2 F 78 18 140/67 09/01/19 11:50 79 140/67 09/01/19 07:20 98.1 F 71 18 140/67 09/01/19 03:16 98.2 F 68 17 135/67 Pulse Ox Pulse Ox 09/01/19 12:14 94 L 09/01/19 11:50 96 09/01/19 07:20 100 09/01/19 03:16 100 Weight Weight 154 lb 1.6 oz I&O: 08/31/19 09/01/19 09/02/19 06:59 06:59 06:59 Intake Total 600 300 Output Total 600 1400 Balance 0 -1100 Result Diagrams: 09/01/19 04:05 09/01/19 04:05 Additional Labs: Accuchecks 09/01/19 09/01/19 08/31/19 10:31 05:43 20:17 POC Glucose 221 H 131 H 187 H 08/31/19 16:40 POC Glucose 253 H Hospitalist ROS - Medication Medications: Active Medications Generic Name Dose Route Start Last Admin Trade Name Miguel PRN Reason Stop Dose Admin Aspirin 81 mg 08/31/19 09:00 09/01/19 09:21 Aspirin Chewable PO 81 mg DAILY DAVID Administration Carvedilol 6.25 mg 08/30/19 17:00 09/01/19 09:21 Coreg PO 6.25 mg BID-WM DAVID Administration Enoxaparin Sodium 30 mg 08/31/19 09:00 09/01/19 09:22 Lovenox SC 30 mg 0900 DAVID Administration Famotidine 20 mg 08/31/19 09:00 09/01/19 09:22 Pepcid PO 20 mg DAILY DAVID Administration Furosemide 40 mg 08/31/19 06:00 09/01/19 14:17 Lasix SLOW IVP 40 mg 0600,1400 DAVID Administration Glipizide 5 mg 09/01/19 07:30 09/01/19 09:21 Glucotrol PO 5 mg BID-AC DAVID Administration Lisinopril 5 mg 09/01/19 09:00 09/01/19 09:22 Zestril PO 5 mg DAILY DAVID Administration Metformin HCl 500 mg 08/31/19 17:00 09/01/19 09:21 Glucophage PO 500 mg BID-WM DAVID Administration Metolazone 5 mg 08/31/19 08:30 09/01/19 09:21 Zaroxolyn PO 5 mg 0830 DAVID Administration Rosuvastatin Calcium 20 mg 08/30/19 21:00 08/31/19 20:57 Crestor PO 20 mg HS DAVID Administration Tramadol HCl 50 mg 08/30/19 14:23 09/01/19 14:16 Ultram PO 50 mg Q6H PRN Administration Pain - Exam General Appearance: awake alert Eye: PERRL, anicteric sclera ENT: no oropharyngeal lesions, moist mucosa Neck: supple, no JVD Heart: RRR, no murmur Respiratory: no wheezes, no rales Gastrointestinal: soft, non-tender, non-distended, normal bowel sounds Extremities: no cyanosis, 1+ LE edema Neurological: cranial nerve grossly intact, no focal deficits Psychiatric: normal affect, A&O x 3 Hosp A/P (1) Acute systolic CHF (congestive heart failure) Code(s): I50.21 - ACUTE SYSTOLIC (CONGESTIVE) HEART FAILURE Status: Acute (2) Coronary artery disease Code(s): I25.10 - ATHSCL HEART DISEASE OF [place] CORONARY ARTERY W/O ANG PCTRS Status: Chronic Qualifiers: Coronary Disease-Associated Artery/Lesion type: bypass graft [place] vs. transplanted heart: [place] heart Associated angina: without angina Qualified Code(s): I25.810 - Atherosclerosis of coronary artery bypass graft(s) without angina pectoris (3) Diabetes mellitus Code(s): E11.9 - TYPE 2 DIABETES MELLITUS WITHOUT COMPLICATIONS Status: Chronic Qualifiers: Diabetes mellitus type: type 2 Diabetes mellitus fdc insulin use: without fdc use (4) Dyslipidemia Code(s): E78.5 - HYPERLIPIDEMIA, UNSPECIFIED Status: Chronic - Plan await echo results, prior ef was 25% before cabg on lasix, metolazone, coreg, lisinopril, asp, crestor continue metformin and glipizide hemostable appreciate help. D/w patient about possible life vest, refuses it dc plan per cardio advice
[2019-09-01] MEDS: Rosuvastatin 20 MG TAB PO SCH (20:45)
[2019-09-02] MEDS: Furosemide 40 MG/4 ML VIAL SLOW IVP SCH ×2 (05:37→15:23)
[2019-09-02 07:34] LABS: Anion Gap 15 mmol/L (10-20); BUN (Urea Nitrogen) 24 mg/dL (9.8-20.1); Calc. Creatinine Clearance 55 mL/min (70-130); Calcium 9.4 mg/dL (7.8-10.44); Carbon Dioxide 32 mmol/L (23-31); Chloride 94 mmol/L (98-107); Estimated GFR-MDRD 65; Glucose 116 mg/dL (80-115); Potassium 3.2 mmol/L (3.5-5.1); Sodium 138 mmol/L (136-145)
[2019-09-02] MEDS: glipiZIDE 5 MG TAB PO SCH ×2 (08:36→16:59)
[2019-09-02] MEDS: Carvedilol 6.25 MG TAB PO SCH ×2 (08:36→16:59)
[2019-09-02] MEDS: metFORMIN 500 MG TAB PO SCH ×2 (08:37→16:59)
[2019-09-02] MEDS: Enoxaparin Sodium 30 MG/0.3 ML SYRINGE SC SCH (08:37)
[2019-09-02] MEDS: Aspirin Chewable 81 MG TAB PO SCH (08:37)
[2019-09-02] MEDS: Famotidine 20 MG TAB PO SCH (08:37)
[2019-09-02] MEDS: Metolazone 5 MG TAB PO SCH (08:37)
[2019-09-02] MEDS: Lisinopril 5 MG TAB PO SCH (08:38)
--- NOTE | 2019-09-02 13:14 | PDOC.HOSPP ---
- Subjective Encounter Date: 09/02/19 Encounter Time: 11:40 Subjective: sob is better, is ambulating in room no chest pain or palp - Objective Vital Signs & Weight: Vital Signs (12 hours) Temp Pulse Resp BP BP Pulse Ox 09/02/19 12:25 76 18 139/71 94 L 09/02/19 12:00 98.1 F 76 14 109/58 L 91 L 09/02/19 08:35 95 09/02/19 08:32 98.4 F 73 16 140/96 H 95 09/02/19 04:00 97.5 F L 68 18 159/74 H 99 Weight Weight 150 lb 8 oz I&O: 09/01/19 09/02/19 09/03/19 06:59 06:59 06:59 Intake Total 300 740 Output Total 1400 2800 Balance -1099 -2059 Result Diagrams: 09/01/19 04:05 09/02/19 07:05 Additional Labs: Accuchecks 09/01/19 09/01/19 20:28 17:00 POC Glucose 169 H 184 H Hospitalist ROS - Medication Medications: Active Medications Generic Name Dose Route Start Last Admin Trade Name Chuq PRN Reason Stop Dose Admin Aspirin 81 mg 08/31/19 09:00 09/02/19 08:37 Aspirin Chewable PO 81 mg DAILY DAVID Administration Carvedilol 6.25 mg 08/30/19 17:00 09/02/19 08:36 Coreg PO 6.25 mg BID-WM DAVID Administration Enoxaparin Sodium 30 mg 08/31/19 09:00 09/02/19 08:37 Lovenox SC 30 mg 09 DAVID Administration Famotidine 20 mg 08/31/19 09:00 09/02/19 08:37 Pepcid PO 20 mg DAILY DAVID Administration Furosemide 40 mg 08/31/19 06:00 09/02/19 05:37 Lasix SLOW IVP 40 mg 0600,1400 DAVID Administration Glipizide 5 mg 09/01/19 07:30 09/02/19 08:36 Glucotrol PO 5 mg BID-AC DAVID Administration Lisinopril 5 mg 09/01/19 09:00 09/02/19 08:38 Zestril PO 5 mg DAILY DAVID Administration Metformin HCl 500 mg 08/31/19 17:00 09/02/19 08:37 Glucophage PO 500 mg BID-WM DAVID Administration Metolazone 5 mg 08/31/19 08:30 09/02/19 08:37 Zaroxolyn PO 5 mg 0830 DAVID Administration Rosuvastatin Calcium 20 mg 08/30/19 21:00 09/01/19 20:45 Crestor PO 20 mg HS DAVID Administration Tramadol HCl 50 mg 08/30/19 14:23 09/01/19 14:16 Ultram PO 50 mg Q6H PRN Administration Pain - Exam General Appearance: NAD, awake alert Eye: PERRL, anicteric sclera ENT: no oropharyngeal lesions, moist mucosa Neck: supple, no JVD Heart: RRR, no murmur Respiratory: no wheezes, no rales Gastrointestinal: soft, non-tender, non-distended, normal bowel sounds Extremities: no cyanosis, 1+ LE edema Neurological: cranial nerve grossly intact, no focal deficits Psychiatric: normal affect, A&O x 3 Hosp A/P (1) Acute systolic CHF (congestive heart failure) Code(s): I50.21 - ACUTE SYSTOLIC (CONGESTIVE) HEART FAILURE Status: Acute (2) Coronary artery disease Code(s): I25.10 - ATHSCL HEART DISEASE OF [place] CORONARY ARTERY W/O ANG PCTRS Status: Chronic Qualifiers: Coronary Disease-Associated Artery/Lesion type: bypass graft [place] vs. transplanted heart: [place] heart Associated angina: without angina Qualified Code(s): I25.810 - Atherosclerosis of coronary artery bypass graft(s) without angina pectoris (3) Diabetes mellitus Code(s): E11.9 - TYPE 2 DIABETES MELLITUS WITHOUT COMPLICATIONS Status: Chronic Qualifiers: Diabetes mellitus type: type 2 Diabetes mellitus buttermaker insulin use: without senior care use (4) Dyslipidemia Code(s): E78.5 - HYPERLIPIDEMIA, UNSPECIFIED Status: Chronic - Plan current echo shows same ef of 25% as before cabg on lasix, metolazone, coreg, lisinopril, asp, crestor continue metformin and glipizide hemostable appreciate help. D/w patient about possible life vest, refuses it dc plan per cardio advice supplement potassium is almost euvolemic may be a candidate for SUBASSEMBLY SUPERVISOR with aicd?
[2019-09-02] MEDS ORDERED: Potassium Chloride 20 MEQ TAB PO SCH (17:00)
[2019-09-02] MEDS: Rosuvastatin 20 MG TAB PO SCH (19:46)
[2019-09-02] MEDS: traMADol HCl 50 MG TAB PO PRN (23:03)
--- NOTE | 2019-09-02 23:10 | CON ---
DATE OF CONSULTATION: 09/02/2019 HISTORY OF PRESENT ILLNESS: Ms. Mercer is doing well. She states she is near her baseline. PHYSICAL EXAMINATION: VITAL SIGNS: Blood pressure , pulse 68, respiratory rate is 16. LUNGS: Clear to auscultation. HEART: Regular rate and rhythm. ABDOMEN: Soft, nontender, nondistended. EXTREMITIES: No edema. IMPRESSION: 1. Acute on chronic systolic heart failure. 2. Coronary artery disease. 3. Status post bypass surgery. RECOMMENDATIONS: At this point, I would recommend to continue medical therapy. I would change her IV Lasix to p.o. Lasix. She does have a cardiomyopathy. She has refused LifeVest in the past. She has met the 3-month threshold for prophylactic ICD placement. We will consult with EP. Once she has been seen by EP and ICD discussed, it will be okay from my standpoint to discharge home with close outpatient followup. Job ID: [id number]
[2019-09-03] MEDS: Furosemide 40 MG/4 ML VIAL SLOW IVP SCH (05:28)
[2019-09-03 05:48] LABS: Anion Gap 12 mmol/L (10-20); BUN (Urea Nitrogen) 31 mg/dL (9.8-20.1); Calc. Creatinine Clearance 35 mL/min (70-130); Calcium 9.3 mg/dL (7.8-10.44); Carbon Dioxide 34 mmol/L (23-31); Chloride 94 mmol/L (98-107); Estimated GFR-MDRD 39; Glucose 89 mg/dL (80-115); Potassium 3.5 mmol/L (3.5-5.1); Sodium 136 mmol/L (136-145)
[2019-09-03] MEDS ORDERED: Sodium Chloride 0.9% 250 ML IV SCH (06:30)
[2019-09-03] MEDS: Lisinopril 5 MG TAB PO SCH (10:03)
[2019-09-03] MEDS: metFORMIN 500 MG TAB PO SCH ×2 (10:04→17:29)
[2019-09-03] MEDS: glipiZIDE 5 MG TAB PO SCH ×2 (10:04→17:29)
[2019-09-03] MEDS: Aspirin Chewable 81 MG TAB PO SCH (10:04)
[2019-09-03] MEDS: Enoxaparin Sodium 30 MG/0.3 ML SYRINGE SC SCH (10:04)
[2019-09-03] MEDS: Famotidine 20 MG TAB PO SCH (10:05)
[2019-09-03] MEDS: Carvedilol 6.25 MG TAB PO SCH ×2 (10:23→17:29)
--- NOTE | 2019-09-03 11:39 | PDOC.HOSPP ---
- Subjective Encounter Date: 09/03/19 Encounter Time: 09:15 Subjective: no sob or chest pain feels better is ambulating in room - Objective Vital Signs & Weight: Vital Signs (12 hours) Temp Pulse Resp BP BP Pulse Ox 09/03/19 11:20 98.8 F 77 16 122/58 L 93 L 09/03/19 10:23 148/70 H 09/03/19 10:03 72 09/03/19 07:59 98.8 F 72 18 133/57 L 95 09/03/19 07:30 93 L 09/03/19 04:00 97.4 F L 60 16 160/74 H 100 Weight Weight 148 lb 6.4 oz I&O: 09/02/19 09/03/19 09/04/19 06:59 06:59 06:59 Intake Total 740 340 Output Total 2800 750 Balance -2060 -410 Result Diagrams: 09/01/19 04:05 09/03/19 03:59 Additional Labs: Accuchecks 09/03/19 09/03/19 09/02/19 10:50 05:51 17:15 POC Glucose 115 H 88 164 H Hospitalist ROS - Medication Medications: Active Medications Generic Name Dose Route Start Last Admin Trade Name Freq PRN Reason Stop Dose Admin Acetaminophen 650 mg 08/30/19 14:23 09/02/19 15:18 Tylenol PO 650 mg Q4H PRN Administration Headache/Fever/Mild Pain (1-3) Aspirin 81 mg 08/31/19 09:00 09/03/19 10:04 Aspirin Chewable PO 81 mg DAILY DAVID Administration Carvedilol 6.25 mg 08/30/19 17:00 09/03/19 10:23 Coreg PO 6.25 mg BID-WM DAVID Administration Enoxaparin Sodium 30 mg 08/31/19 09:00 09/03/19 10:04 Lovenox SC 30 mg 0900 DAVID Administration Famotidine 20 mg 08/31/19 09:00 09/03/19 10:05 Pepcid PO 20 mg DAILY DAVID Administration Glipizide 5 mg 09/01/19 07:30 09/03/19 10:04 Glucotrol PO 5 mg BID-AC DAVID Administration Lisinopril 5 mg 09/01/19 09:00 09/03/19 10:03 Zestril PO 5 mg DAILY DAVID Administration Metformin HCl 500 mg 08/31/19 17:00 09/03/19 10:04 Glucophage PO Not Given BID-WM DAVID Rosuvastatin Calcium 20 mg 08/30/19 21:00 09/02/19 19:46 Crestor PO 20 mg HS DAVID Administration Tramadol HCl 50 mg 08/30/19 14:23 09/02/19 23:03 Ultram PO 50 mg Q6H PRN Administration Pain - Exam General Appearance: awake alert Eye: PERRL, anicteric sclera ENT: no oropharyngeal lesions, moist mucosa Neck: supple, no JVD Heart: RRR, no murmur Respiratory: no wheezes, no rales Gastrointestinal: soft, non-tender, non-distended, normal bowel sounds Extremities: no cyanosis, no edema Neurological: cranial nerve grossly intact, no focal deficits Psychiatric: normal affect, A&O x 3 Hosp A/P (1) Acute systolic CHF (congestive heart failure) Code(s): I50.21 - ACUTE SYSTOLIC (CONGESTIVE) HEART FAILURE Status: Acute (2) Coronary artery disease Code(s): I25.10 - ATHSCL HEART DISEASE OF [place] CORONARY ARTERY W/O ANG PCTRS Status: Chronic Qualifiers: Coronary Disease-Associated Artery/Lesion type: bypass graft [place] vs. transplanted heart: [place] heart Associated angina: without angina Qualified Code(s): I25.810 - Atherosclerosis of coronary artery bypass graft(s) without angina pectoris (3) Diabetes mellitus Code(s): E11.9 - TYPE 2 DIABETES MELLITUS WITHOUT COMPLICATIONS Status: Chronic Qualifiers: Diabetes mellitus type: type 2 Diabetes mellitus assisted insulin use: without assisted use (4) Dyslipidemia Code(s): E78.5 - HYPERLIPIDEMIA, UNSPECIFIED Status: Chronic - Plan current echo shows same ef of 25% same as before cabg on coreg, lisinopril, asp, crestor continue glipizide, hold metformin till 09/05 off lasix and metolazone due to raudel from diuresis hemostable appreciate help. D/w patient about possible life vest, refuses it, but will have AICD tomorrow d/w , she will be npo after midnight for procedure in am
--- NOTE | 2019-09-03 19:34 | PDOC.CPN ---
- Subjective Date: 09/03/19 Time: 19:32 Interval history: She is doing well. Breathing at baseline. No chest pain. - Review of Systems General: denies: fever/chills, weight/appetite/sleep changes, night sweats, fatigue Respiratory: denies: cough, congestion, shortness of breath, exercise intolerance Cardiovascular: denies: chest pain, palpitation, edema, paroxysmal nocturnal dyspnea, orthopnea Gastrointestinal: denies: nausea, vomiting, diarrhea, constipation, abd pain, GI bleeding Musculoskeletal: denies: pain, tenderness, stiffness, swelling, arthritis/ arthralgias Neurological: denies: numbness, syncope, seizure, weakness - Objective Allergies/Adverse Reactions: Allergies Allergy/AdvReac Type Severity Reaction Status Date / Time Sulfa (Sulfonamide Allergy Unknown Verified 06/04/19 09:22 Antibiotics) Visit Medications: Current Medications Acetaminophen (Tylenol) 650 mg PO Q4H PRN PRN Reason: Headache/Fever/Mild Pain (1-3) Last Admin: 09/02/19 15:18 Dose: 650 mg Aspirin (Aspirin Chewable) 81 mg PO DAILY [facility] Last Admin: 09/03/19 10:04 Dose: 81 mg Bisacodyl (Dulcolax) 10 mg [place] DAILYPRN PRN PRN Reason: Constipation Carvedilol (Coreg) 6.25 mg PO BID-[facility] Last Admin: 09/03/19 17:29 Dose: 6.25 mg Dextrose/Water (Dextrose 50%) 25 gm SLOW IVP PRN PRN PRN Reason: Hypoglycemia Enoxaparin Sodium (Lovenox) 30 mg SC 0900 [facility] Last Admin: 09/03/19 10:04 Dose: 30 mg Famotidine (Pepcid) 20 mg PO DAILY [facility] Last Admin: 09/03/19 10:05 Dose: 20 mg Glipizide (Glucotrol) 5 mg PO BID-AC [facility] Last Admin: 09/03/19 17:29 Dose: 5 mg Glucagon (Glucagon) 1 mg IM PRN PRN PRN Reason: Hypoglycemia Guaifenesin/Dextromethorphan (Robitussin Dm) 15 ml PO Q4H PRN PRN Reason: Cough Dextrose/Water (D5w) 1,000 mls @ 0 mls/hr IV .Q0M PRN PRN Reason: Hypoglycemia Insulin Human Lispro (Humalog) 0 units SC .MODERATE SLIDING SC PRN PRN Reason: Moderate Correctional Scale Insulin Human Lispro (Humalog) 0 units SC .BEDTIME SLIDING SC PRN PRN Reason: Bedtime Correctional Scale Lisinopril (Zestril) 5 mg PO DAILY [facility] Last Admin: 09/03/19 10:03 Dose: 5 mg Metformin HCl (Glucophage) 500 mg PO BID-[facility] Last Admin: 09/03/19 17:29 Dose: Not Given Ondansetron HCl (Zofran) 4 mg IVP Q6H PRN PRN Reason: Nausea/Vomiting Rosuvastatin Calcium (Crestor) 20 mg PO HS [facility] Last Admin: 09/02/19 19:46 Dose: 20 mg Senna/Docusate Sodium (Senokot S) 2 tab PO BID PRN PRN Reason: Constipation Tramadol HCl (Ultram) 50 mg PO Q6H PRN PRN Reason: Pain Last Admin: 09/02/19 23:03 Dose: 50 mg Vital Signs & Weight: Vital Signs Temp Pulse Resp BP BP Pulse Ox 09/03/19 17:29 148/70 H 09/03/19 16:38 97.5 F L 80 19 127/61 91 L 09/03/19 11:20 98.8 F 77 16 122/58 L 93 L 09/03/19 10:23 148/70 H 09/03/19 10:03 72 09/03/19 07:59 98.8 F 72 18 133/57 L 95 Weight 148 lb 6.4 oz - Physical Exam General: alert & oriented x3 HEENT: mucus membranes moist Neck: supple neck Cardiac: regular rate and rhythm Lungs: clear to auscultation Neuro: grossly intact Abdomen: active bowel sounds Extremities: no edema Skin: clear Musculoskeletal: no pain - Labs Result Diagrams: 09/01/19 04:05 09/03/19 03:59 Troponin/CKMB CK-MB (CK-2) 1.8 ng/mL (0-6.6) 08/30/19 10:40 Troponin I 0.069 ng/mL (< 0.028) H 08/30/19 14:08 - Telemetry Sinus rhythms and dysrhythmias: sinus rhythm - Assessment/Plan Assessment/Plan: 1. Acute on chronic systolic heart failure. 2. CAD 3. S/P CABG 4. Ischemic CM Ef at 25-30% PLAN; - EP to do AICD tomorrow.
[2019-09-03] MEDS: Rosuvastatin 20 MG TAB PO SCH (19:58)
[2019-09-04 07:49] LABS: Anion Gap 18 mmol/L (10-20); BUN (Urea Nitrogen) 35 mg/dL (9.8-20.1); Calc. Creatinine Clearance 46 mL/min (70-130); Calcium 9.3 mg/dL (7.8-10.44); Carbon Dioxide 25 mmol/L (23-31); Chloride 96 mmol/L (98-107); Estimated GFR-MDRD 53; Glucose 87 mg/dL (80-115); Potassium 4.1 mmol/L (3.5-5.1); Sodium 135 mmol/L (136-145)
[2019-09-04] MEDS: glipiZIDE 5 MG TAB PO SCH ×2 (08:25→17:11)
[2019-09-04] MEDS: Famotidine 20 MG TAB PO SCH (08:26)
[2019-09-04] MEDS: Lisinopril 5 MG TAB PO SCH (08:26)
[2019-09-04] MEDS: metFORMIN 500 MG TAB PO SCH ×2 (08:26→17:49)
[2019-09-04] MEDS: Aspirin Chewable 81 MG TAB PO SCH (08:26)
[2019-09-04] MEDS: Carvedilol 6.25 MG TAB PO SCH ×2 (08:26→17:11)
[2019-09-04] MEDS: Enoxaparin Sodium 30 MG/0.3 ML SYRINGE SC SCH (10:39)
[2019-09-04] MEDS ORDERED: Iopamidol 370 76% 50 ML VIAL FS ONE (10:44)
[2019-09-04] MEDS ORDERED: PROPOFOL 200 MG/20 ML VIAL ONE (12:24)
--- NOTE | 2019-09-04 12:39 | PDOC.HOSPP ---
- Subjective Encounter Date: 09/04/19 Encounter Time: 10:15 Subjective: is npo, no sob or chest pain or palp feels better is scheduled for aicd this afternoon - Objective Vital Signs & Weight: Vital Signs (12 hours) Temp Pulse Resp BP BP BP Pulse Ox 09/04/19 11:18 97.8 F 67 16 149/65 H 93 L 09/04/19 08:26 68 148/70 H 09/04/19 07:19 151/67 H 09/04/19 07:15 97.5 F L 68 16 164/70 H 99 09/04/19 03:57 98.0 F 71 18 143/66 H 100 Weight Weight 149 lb I&O: 09/03/19 09/04/19 09/05/19 06:59 06:59 06:59 Intake Total 340 Output Total 750 1000 Balance -410 -1000 Result Diagrams: 09/01/19 04:05 09/04/19 07:10 Additional Labs: Accuchecks 09/04/19 09/04/19 09/03/19 10:46 05:51 21:14 POC Glucose 107 92 137 H 09/03/19 17:10 POC Glucose 179 H Hospitalist ROS - Medication Medications: Active Medications Generic Name Dose Route Start Last Admin Trade Name Freq PRN Reason Stop Dose Admin Acetaminophen 650 mg 08/30/19 14:23 09/02/19 15:18 Tylenol PO 650 mg Q4H PRN Administration Headache/Fever/Mild Pain (1-3) Aspirin 81 mg 08/31/19 09:00 09/04/19 08:26 Aspirin Chewable PO 81 mg DAILY DAVID Administration Carvedilol 6.25 mg 08/30/19 17:00 09/04/19 08:26 Coreg PO 6.25 mg BID-WM DAVID Administration Enoxaparin Sodium 30 mg 08/31/19 09:00 09/04/19 10:39 Lovenox SC Not Given 09 DAVID Famotidine 20 mg 08/31/19 09:00 09/04/19 08:26 Pepcid PO 20 mg DAILY DAVID Administration Glipizide 5 mg 09/01/19 07:30 09/04/19 08:25 Glucotrol PO 5 mg BID-AC DAVID Administration Lisinopril 5 mg 09/01/19 09:00 12/13/19 08:26 Zestril PO 5 mg DAILY DAVID Administration Metformin HCl 500 mg 08/31/19 17:00 09/04/19 08:26 Glucophage PO 500 mg BID-WM DAVID Administration Rosuvastatin Calcium 20 mg 08/30/19 21:00 09/03/19 19:58 Crestor PO 20 mg HS DAVID Administration Tramadol HCl 50 mg 08/30/19 14:23 09/02/19 23:03 Ultram PO 50 mg Q6H PRN Administration Pain - Exam General Appearance: NAD, awake alert Eye: PERRL, anicteric sclera ENT: no oropharyngeal lesions, moist mucosa Neck: supple, no JVD Heart: no murmur, no gallops Respiratory: no wheezes, no rales Gastrointestinal: soft, non-tender, non-distended, normal bowel sounds Extremities: no cyanosis, no edema Neurological: cranial nerve grossly intact, no focal deficits Psychiatric: normal affect, A&O x 3 Hosp A/P (1) Acute systolic CHF (congestive heart failure) Code(s): I50.21 - ACUTE SYSTOLIC (CONGESTIVE) HEART FAILURE Status: Acute (2) Coronary artery disease Code(s): I25.10 - ATHSCL HEART DISEASE OF [place] CORONARY ARTERY W/O ANG PCTRS Status: Chronic Qualifiers: Coronary Disease-Associated Artery/Lesion type: bypass graft [place] vs. transplanted heart: [place] heart Associated angina: without angina Qualified Code(s): I25.810 - Atherosclerosis of coronary artery bypass graft(s) without angina pectoris (3) Diabetes mellitus Code(s): E11.9 - TYPE 2 DIABETES MELLITUS WITHOUT COMPLICATIONS Status: Chronic Qualifiers: Diabetes mellitus type: type 2 Diabetes mellitus nursing home insulin use: without nursing home use (4) Dyslipidemia Code(s): E78.5 - HYPERLIPIDEMIA, UNSPECIFIED Status: Chronic - Plan current echo shows same ef of 25% same as before cabg on coreg, lisinopril, asp, crestor continue glipizide, hold metformin till 09/05 off lasix and metolazone due to raudel from diuresis hemostable appreciate help. For AICD today, likely dc plan in am
[2019-09-04] MEDS ORDERED: CEFAZOLIN 1 GM VIAL ONE (14:14)
[2019-09-04] MEDS ORDERED: Ketamine 50 MG/ML (10ML VIAL) ONE (15:00)
[2019-09-04] MEDS ORDERED: Lidocaine 1% (PF) 30 ML VIAL ONE (15:12)
--- NOTE | 2019-09-04 15:39 | PDOC.CPN ---
- Subjective Date: 09/04/19 Time: 15:37 Interval history: No new issues or complaints. - Review of Systems General: denies: fever/chills, weight/appetite/sleep changes, night sweats, fatigue Respiratory: denies: cough, congestion, shortness of breath, exercise intolerance Cardiovascular: denies: chest pain, palpitation, edema, paroxysmal nocturnal dyspnea, orthopnea Gastrointestinal: denies: nausea, vomiting, diarrhea, constipation, abd pain, GI bleeding Musculoskeletal: denies: pain, tenderness, stiffness, swelling, arthritis/ arthralgias Neurological: denies: numbness, syncope, seizure, weakness - Objective Allergies/Adverse Reactions: Allergies Allergy/AdvReac Type Severity Reaction Status Date / Time Sulfa (Sulfonamide Allergy Unknown Verified 06/04/19 09:22 Antibiotics) Visit Medications: Current Medications Acetaminophen (Tylenol) 650 mg PO Q4H PRN PRN Reason: Headache/Fever/Mild Pain (1-3) Last Admin: 09/02/19 15:18 Dose: 650 mg Aspirin (Aspirin Chewable) 81 mg PO DAILY [facility] Last Admin: 09/04/19 08:26 Dose: 81 mg Bisacodyl (Dulcolax) 10 mg [place] DAILYPRN PRN PRN Reason: Constipation Carvedilol (Coreg) 6.25 mg PO BID-WM [facility] Last Admin: 09/04/19 08:26 Dose: 6.25 mg Dextrose/Water (Dextrose 50%) 25 gm SLOW IVP PRN PRN PRN Reason: Hypoglycemia Enoxaparin Sodium (Lovenox) 30 mg SC 0900 [facility] Last Admin: 09/04/19 10:39 Dose: Not Given Famotidine (Pepcid) 20 mg PO DAILY [facility] Last Admin: 09/04/19 08:26 Dose: 20 mg Glipizide (Glucotrol) 5 mg PO BID-AC [facility] Last Admin: 09/04/19 08:25 Dose: 5 mg Glucagon (Glucagon) 1 mg IM PRN PRN PRN Reason: Hypoglycemia Guaifenesin/Dextromethorphan (Robitussin Dm) 15 ml PO Q4H PRN PRN Reason: Cough Dextrose/Water (D5w) 1,000 mls @ 0 mls/hr IV .Q0M PRN PRN Reason: Hypoglycemia Insulin Human Lispro (Humalog) 0 units SC .MODERATE SLIDING SC PRN PRN Reason: Moderate Correctional Scale Insulin Human Lispro (Humalog) 0 units SC .BEDTIME SLIDING SC PRN PRN Reason: Bedtime Correctional Scale Lisinopril (Zestril) 5 mg PO DAILY [facility] Last Admin: 09/04/19 08:26 Dose: 5 mg Metformin HCl (Glucophage) 500 mg PO BID-[facility] Last Admin: 09/04/19 08:26 Dose: 500 mg Ondansetron HCl (Zofran) 4 mg IVP Q6H PRN PRN Reason: Nausea/Vomiting Rosuvastatin Calcium (Crestor) 20 mg PO HS [facility] Last Admin: 09/03/19 19:58 Dose: 20 mg Senna/Docusate Sodium (Senokot S) 2 tab PO BID PRN PRN Reason: Constipation Tramadol HCl (Ultram) 50 mg PO Q6H PRN PRN Reason: Pain Last Admin: 09/02/19 23:03 Dose: 50 mg Vital Signs & Weight: Vital Signs Temp Pulse Resp BP BP BP Pulse Ox 09/04/19 11:18 97.8 F 67 16 149/65 H 93 L 09/04/19 08:26 68 148/70 H 09/04/19 07:19 151/67 H 09/04/19 07:15 97.5 F L 68 16 164/70 H 99 09/04/19 03:57 98.0 F 71 18 143/66 H 100 Weight 149 lb - Physical Exam General: alert & oriented x3 HEENT: mucus membranes moist Neck: supple neck Cardiac: regular rate and rhythm Lungs: clear to auscultation Neuro: grossly intact Abdomen: active bowel sounds Extremities: no edema Skin: clear Musculoskeletal: no pain - Labs Result Diagrams: 09/01/19 04:05 09/04/19 07:10 Troponin/CKMB CK-MB (CK-2) 1.8 ng/mL (0-6.6) 08/30/19 10:40 Troponin I 0.069 ng/mL (< 0.028) H 08/30/19 14:08 - Telemetry Sinus rhythms and dysrhythmias: sinus rhythm - Assessment/Plan Assessment/Plan: 1. Acute on chronic systolic heart failure. 2. CAD 3. S/P CABG 4. Ischemic CM Ef at 25-30% PLAN; - EP to do AICD today. - Will add aldactone. - May discharge home tomorrow on current meds after AICD. - Follow up with Dr. Hand in 1-2 months.
[2019-09-04] MEDS ORDERED: HYDROcodone/Acetaminophen 5/325 mg Tablet PO PRN (16:01)
[2019-09-04] MEDS ORDERED: Acetaminophen/Codeine 30-300mg Tablet PO PRN (16:01)
--- NOTE | 2019-09-04 16:06 | CON ---
DATE OF CONSULTATION: 09/03/2019 CONSULTING PHYSICIAN: Wade Coburn MD REASON FOR CONSULTATION: Cardiomyopathy. HISTORY OF PRESENT ILLNESS: Ms. Mercer is a 68-year-old woman with a known history of chronic systolic heart failure. She has also had coronary artery disease with prior bypass grafting. She was admitted for [id number] systolic heart failure. EP consultation is requested for consideration of an ICD given her persistently and severely reduced ejection fraction. During this hospital stay , an echocardiogram was performed, estimating her ejection fraction at 25% to 30% despite optimal medical management for greater than 3 months. Of note, the patient also has history of bradycardia and questionable syncopal episodes. Ms. Mercer is currently feeling well. She is not having any heart racing, palpitations, chest pain, pressure, syncope, near syncope, stroke, or stroke- like symptoms. She does endorse some mild shortness of breath with her recent acute heart failure issues. REVIEW OF SYSTEMS: A 12-point review of systems is negative except that listed above in HPI. PAST MEDICAL HISTORY: 1. Chronic systolic heart failure with severely reduced ejection fraction, ischemic cardiomyopathy. 2. Coronary artery disease with prior bypass grafting. 3. Hypertension. 4. Hyperlipidemia. 5. Diabetes. 6. Hysterectomy. 7. Bradycardia and syncope/near syncope, unknown etiology. ALLERGIES: SULFA. HOME MEDICATIONS: Include: 1. Lisinopril 5 mg daily. 2. Vitamin D3 of 2000 units daily. 3. Coreg 6.25 mg p.o. b.i.d. 4. Aspirin 325 mg daily. 5. Metolazone 2.5 mg as needed. 6. Glipizide/metformin one tablet p.o. b.i.d. 7. Lasix 40 mg daily. 8. Potassium chloride 20 mEq daily. 9. Nitroglycerin sublingual as needed. 10. Tramadol 50 mg p.o. q.6 h. as needed. 11. Rosuvastatin 20 mg p.o. nightly. FAMILY HISTORY: Noncontributory. SOCIAL HISTORY: Family support. Denies alcohol, tobacco, or illicit drug use. OBJECTIVE: VITAL SIGNS: Temperature 98.8, pulse 77, blood pressure 148/70, respirations 16, and oxygen 93% on room air. GENERAL: The patient is alert and oriented. Speech is clear. Affect is appropriate. She is in no apparent distress at the time of exam. NECK: Supple without jugular venous distention. There is no lymphadenopathy. Trachea is midline. HEART: Rate is irregularly irregular with crisp S1 and S2. No significant murmur, rub, or gallop is appreciated. PMI is nonpalpable. LUNGS: Clear to auscultation bilaterally without wheezes, crackles, or rhonchi. Slightly diminished in the bases. ABDOMEN: Soft and nontender without palpable masses. EXTREMITIES: Warm and dry to touch without clubbing, cyanosis, or edema. NEUROLOGIC: Grossly intact and nonfocal. DATABASE: Hematology was reviewed and is unremarkable. Chemistry: Potassium 4.1, creatinine 1.22. Echocardiogram on 09/01/2019: Ejection fraction 25% to 30%. LV moderately increased in size. Diastolic dysfunction is suggested. Left atrium is moderately dilated. There is moderate mitral regurgitation and [id number] tricuspid regurgitation. Telemetry and EKG show sinus rhythm and sinus bradycardia. IMPRESSION: 1. [id number] systolic heart failure with ischemic cardiomyopathy and severely reduced ejection fraction despite medical management for over 3 months. 2. Coronary artery disease with prior bypass grafting. 3. Bradycardia. 4. History of questionable syncope and collapse of unknown etiology. PLAN AND RECOMMENDATIONS: Ms. Mercer has ischemic cardiomyopathy with persistent and severely reduced ejection fraction, less than 30%, for at least 3 months despite optimal medical management by her patient registrar. She could benefit from ICD implant as primary prevention for sudden cardiac in the setting of ventricular arrhythmias, which are more prevalent with severely weakened heart. We discussed also her episodes of bradycardia and passing out. With her bradycardia and questionable syncope history, I feel she would most benefit from a dual-chamber system to better address bradycardia and monitor for arrhythmias and potentially prevent further syncopal episodes. We discussed risks, benefits, and alternatives. She voices understanding and is willing to proceed. She will be scheduled tomorrow for dual-chamber ICD implant. She will likely be ready for discharge the following morning from an EP perspective. Thank you for allowing me to participate in the care of this patient. (Hanna Curry NP dictating as scribe for Wade Coburn MD. Job ID: [id number] [facility]
--- NOTE | 2019-09-04 16:42 | RAD ---
XR Chest 1 View Portable HISTORY: Defibrillator placement COMPARISON: 08/30/2019 FINDINGS: Changes of median sternotomy are again seen. The heart is enlarged but stable. A left-sided defibrillator device has been placed in the interim.The lungs are well expanded without focal areas of consolidation, pneumothorax or pleural effusions. IMPRESSION: No radiographic evidence of acute cardiopulmonary process.
[2019-09-04] MEDS: Cephalexin 250 MG CAP PO SCH ×2 (17:12→20:56)
[2019-09-04] MEDS: Rosuvastatin 20 MG TAB PO SCH (20:56)
[2019-09-05] MEDS ORDERED: Spironolactone 25 MG TAB PO SCH (08:00)
--- NOTE | 2019-09-05 08:07 | RAD ---
EXAM: Chest one view: HISTORY: Post cardiac device placement COMPARISON: 09/04/2019 FINDINGS: Left ICD. Postop midline sternotomy. Heart size: Borderline enlarged. Lungs: Clear of acute process. No evidence for confluent pneumonia, pleural effusion, acute edema, or pneumothorax, or other signifi cant acute process. IMPRESSION: No significant acute intrathoracic disease.
[2019-09-05] MEDS: metFORMIN 500 MG TAB PO SCH (08:11)
[2019-09-05] MEDS: Carvedilol 6.25 MG TAB PO SCH (08:11)
[2019-09-05] MEDS: Enoxaparin Sodium 30 MG/0.3 ML SYRINGE SC SCH (08:12)
[2019-09-05] MEDS: Famotidine 20 MG TAB PO SCH (08:12)
[2019-09-05] MEDS: glipiZIDE 5 MG TAB PO SCH (08:12)
[2019-09-05] MEDS: Cephalexin 250 MG CAP PO SCH ×2 (08:12→13:36)
[2019-09-05] MEDS: Lisinopril 5 MG TAB PO SCH (08:12)
[2019-09-05] MEDS: Aspirin Chewable 81 MG TAB PO SCH (08:12)
[2019-09-05 12:50] VITALS: BP 145/69; TEMP 98.1
[2019-09-05] MEDS: traMADol HCl 50 MG TAB PO PRN (13:36)
--- NOTE | 2019-09-07 21:14 | PQF ---
KARSON BARRETO VINAYA KUMAR MD [id number] [id number] CLINICAL DOCUMENTATION CLARIFICATION FORM: POST DISCHARGE Addendum to original discharge summary date: ____ Late entry note date: __ DATE: 09/07/19 ATTN: Kenji Kumar Please exercise your independent, professional judgment in responding to the clarification form. Clinical indicators are provided on the bottom of this form for your review Please check appropriate box(s) to clarify if the following diagnosis has been ruled in or ruled out: Acute Hypoxic Respiratory Failure [ x ] Ruled in diagnosis [ ] Continue to treat [ x ] Resolved [ ] Ruled out diagnosis [ ] Cannot rule out diagnosis [ ] Other diagnosis [ ] Unable to determine In addition, please specify: Present on Admission (POA): [ x] Yes [ ] No [ ] Unable to determine For continuity of documentation, please document condition throughout progress notes and discharge summary. Thank You. CLINICAL INDICATORS - SIGNS / SYMPTOMS / LABS H&P p1 12 D Clarisa Reason for admission : CHF exacerbation with systolic dysfunction and prior ejection fraction of around 25%. Acute Respiratory failure with hypoxia, on nasal cannula at present H&P p1 12 D Clarisa the patient gives history of developing shortness of breath from last 3 days H&P p1 12/8 D Clarisa has severe orthopnea H&P p1 128 D Clarisa She has been using oxygen from last 3 days now and is on 2 l per day3. She in fact had plan on giving up on her oxygen as she was not using, but had yo use it for 3 days now RISK FACTORS H&P p3 128 - Acute on chronic CHF exacerbation with systolic dysfunction H&P p3 12 - Recent CABG TREATMENTS Respiratory Panel 08/30 Oxygen at 2lpm via nasal cannula MAR 08/30 IV lasix q12 (This form is maintained as a part of the permanent medical record) 2014 [employer], [employer]. All Rights Reserved [email or web address] [not provided] MTDD
== END 2019-09-05 16:17 | disposition home or self-care (01) | DRG 226 ==
LOC: ERS 10:24 → ERHOLD 12:07 → 2NO 18:45
PROVIDERS: ADMIT Internal Medicine; ATTEND Internal Medicine
PROC: 0JH608Z Insertion of Defibrillator Generator into Chest Subcutaneous Tissue and Fascia, Open Approach (ICD-10-PCS; principal; 2019-09-04)
PROC: 02HK3KZ Insertion of Defibrillator Lead into Right Ventricle, Percutaneous Approach (ICD-10-PCS; 2019-09-04)
PROC: 02H63KZ Insertion of Defibrillator Lead into Right Atrium, Percutaneous Approach (ICD-10-PCS; 2019-09-04)
DX: I11.0 Hypertensive heart disease with heart failure (principal); J96.01 Acute respiratory failure with hypoxia; I25.5 Ischemic cardiomyopathy; I50.23 Acute on chronic systolic (congestive) heart failure; E78.5 Hyperlipidemia, unspecified; M19.90 Unspecified osteoarthritis, unspecified site; I25.10 Atherosclerotic heart disease of native coronary artery without angina pectoris; Z79.4 Long term (current) use of insulin; Z28.21 Immunization not carried out because of patient refusal; Z95.1 Presence of aortocoronary bypass graft; Z95.828 Presence of other vascular implants and grafts; Z79.899 Other long term (current) drug therapy; Z79.82 Long term (current) use of aspirin; Z90.710 Acquired absence of both cervix and uterus; Z88.2 Allergy status to sulfonamides
CPT/HCPCS: 33230; 36005; 36415; 36416; 71045; 75820; 80048; 80053; 82550; 82553; 83880; 84443; 84484; 85025; 90471; 90670; 93005; 93010; 93306; 96374; C1721; C1777; C1898; G0009; J0690; J1650; J1940; J2001; J2704; J3490; Q9967

== ENCOUNTER 2020-10-28 12:18 | Inpatient (IN) | payer MEDICARE ==
[2020-10-28] MEDS ORDERED: Piperacillin/Tazobactam 4.5 GM VIAL ONE (13:19)
[2020-10-28] MEDS ORDERED: Vancomycin 1 GM/200 ML BAG ONE (13:19)
[2020-10-28 13:20] LABS: #Basophils 0.1 thou/uL (0.0-0.2); #Lymphocytes 1.6 thou/uL (1.20-3.40); #Monocytes 0.3 thou/uL (0.11-0.59); #Neutrophils 3.2 thou/uL (1.40-6.50); %Eosinophils 0.4 % (0.0-10.0); %Lymphocytes 30.5 % (21.0-51.0); %Monocytes 6.4 % (0.0-10.0); %Neutrophils 61.7 % (42.0-75.0); Hemoglobin 11.8 g/dL (12.0-16.0); Mean Corpuscular HGB CONC 31.4 g/dL (32.0-36.0); Mean Corpuscular Hemoglobin 28.1 pg (27.0-31.0); Mean Corpuscular Volume 89.4 fL (78.0-98.0); Mean Platelet Volume 9.6 fL (7.4-10.4); Platelet Count 152 thou/uL (130-400); RBC Distribution Width 12.7 % (11.5-14.5); Red Blood Cell (RBC) Count 4.21 mill/uL (4.20-5.40); White Blood Cell (WBC) Count 5.2 thou/uL (4.8-10.8)
--- NOTE | 2020-10-28 13:27 | RAD ---
XR Chest 1 View Portable HISTORY: Cough COMPARISON: 09/05/2019 FINDINGS: The heart size is normal. Changes of median sternotomy and left-sided AICD again seen. The lungs are well expanded without focal areas of consolidation, pneumothorax or pleural effusions. IMPRESSION: No radiographic evidence of acute cardiopulmonary process.
[2020-10-28 13:48] LABS: ALT (SGPT) 11 U/L (8-55); AST (SGOT) 26 U/L (5-34); Albumin 2.7 g/dL (3.4-4.8); Alkaline Phosphatase 89 U/L (40-110); Anion Gap 17 mmol/L (10-20); BUN (Urea Nitrogen) 29 mg/dL (9.8-20.1); Bilirubin, Total 0.4 mg/dL (0.2-1.2); Calc. Creatinine Clearance 0 mL/min (70-130); Calcium 7.7 mg/dL (7.8-10.44); Carbon Dioxide 21 mmol/L (23-31); Chloride 102 mmol/L (98-107); Globulin 3.5 g/dL (2.4-3.5); Glucose 350 mg/dL (83-110); Potassium 3.5 mmol/L (3.5-5.1); Protein, Total 6.2 g/dL (5.8-8.1); Sodium 136 mmol/L (136-145)
[2020-10-28 14:01] LABS: Bilirubin Negative (Negative); Blood, Urine 2+ (Negative); Clarity Turbid (Clear); Glucose, Urine (Dipstick) 500 mg/dL (Negative); Ketone, Urine Negative (Negative); Leukocyte Negative Leu/uL (Negative); Nitrite Negative (Negative); Protein, Urine (Dipstick) 600 mg/dL (Neg-Trace); Specific Gravity, Urine 1.016 (1.002-1.036); Urobilinogen Normal mg/dL (Less than 2)
[2020-10-28 14:02] LABS: Amphetamine Not Detected (NotDetected); Barbiturates Screen Not Detected (NotDetected); Benzodiazepine Screen Not Detected (NotDetected); Cocaine Metabolite Screen Not Detected (NotDetected); Medtox Control Line Valid? VALID (VALID); Medtox Reader # READER 4; Methadone Not Detected (NotDetected); Methamphetamine Not Detected (NotDetected); Opiate Screen Not Detected (NotDetected); Oxycodone Screen Not Detected (NotDetected); Phencyclidine (PCP) Not Detected (NotDetected); THC/Cannabinoid Screen Not Detected (NotDetected); Tricyclic Screen Not Detected (NotDetected)
[2020-10-28 14:08] LABS: Bacteria/HPF 4+ HPF (None Seen); Squamous Epithelial 0-3 HPF (0-3); Transitional Epithelial 0-3 HPF (None Seen)
[2020-10-28 14:19] LABS: SARS-CoV-2 NAA Rapid Test DETECTED (NotDetected)
[2020-10-28] MEDS ORDERED: Sodium Chloride 0.9% 1,000 ML IV SCH (15:00)
--- NOTE | 2020-10-28 21:19 | PDOC.HHP ---
Hospitalist HPI Generalized weakness History of Present Illness: This is a 69-year-old female patient with a history of systolic/diastolic heart failure with AICD, cardiomyopathy, diabetes mellitus and hypertension was brought in by family on account of generalized weakness and frequent urination, fever of 102.1 and mild confusion At the time of my evaluation she was in bed no distress and fully oriented. She denies any associated nausea vomiting diarrhea chest pain cough or shortness of breath. She notes that she lives with her grandson and his girlfriend who may be part of her problems. On arrival BP was 183/75, pulse 79, temperature 100.0, saturation 98% on room air. Respiratory rate was 21. Labs showed WBC of 5.2, hemoglobin 11.8, platelets 152. Bicarb was 21, creatinine 1.58 around baseline. Urine was turbid with 600+ protein 72+ blood. Nitrites, were negative. WBC 4-6 and bacteria 4+. Covid test was positive Urine drug screen was negative. Chest x-ray showed no radiographical evidence of cardiopulmonary process. She was started on vancomycin and Zosyn and 1 L normal saline. Hospitalist team was consulted for admission. Allergies/Adverse Reactions: Allergy/AdvReac Type Severity Reaction Status Date / Time Sulfa (Sulfonamide Allergy Unknown Verified 10/28/20 17:22 Antibiotics) Home Medications: Medication Instructions Recorded Confirmed Type Cholecalciferol (Vitamin D3) 2,000 unit PO DAILY 02/20/15 08/30/19 History [Vitamin D3] Nitroglycerin [Nitrostat] 0.4 mg SL Q5MIN PRN #0 tab 02/22/15 08/30/19 Rx Furosemide [Lasix] 40 mg PO DAILY #30 tab 03/29/19 08/30/19 Rx Metolazone 2.5 mg PO PRN PRN 06/04/19 08/30/19 History Carvedilol [Coreg] 6.25 mg PO BID-WM #60 tab 06/16/19 08/30/19 Rx Lisinopril 5 mg PO DAILY 08/30/19 08/30/19 History Aspirin Chewable [Aspirin Chewable 81 mg PO DAILY tab 09/05/19 Rx Tablet] Cephalexin [Keflex] 500 mg PO QID #28 cap 09/05/19 Rx Glipizide/Metformin HCl 1 tablet PO BID-WM #60 tablet 09/05/19 Rx [glipiZIDE/metFORMIN HCl] Rosuvastatin [Crestor] 20 mg PO HS #30 tab 09/05/19 Rx Spironolactone [Aldactone] 12.5 mg PO QAM-WM #30 tab 09/05/19 Rx Past History: PMHx: Diabetes mellitus, hypertension, systolic/diastolic heart failure, PSHx:Hysterectomy, section, arthroscopy, CABG Family history: No significant family history. Social history: No alcohol or drug use. She was a former smoker She lives alone however she currently has a grandson with her Hospitalist HPI ROS Constitutional: reports: fever, weakness, malaise. denies: chills, sweats Respiratory: denies: cough, shortness of breath, hemoptysis, SOB with excertion Gastrointestinal: denies: nausea, vomiting, abdominal pain, diarrhea Genitourinary: reports: dysuria, frequency. denies: incontinence, hematuria, re tention Neurological: denies: weakness, numbness, incoordination, change in speech All other systems reviewed; all pertinent +/- noted in HPI/Subj Hospitalist Exam Vitals: Vital Signs (12 hours) Temp Pulse Resp BP Pulse Ox 10/28/20 20:41 99.4 F 74 18 157/75 H 97 10/28/20 16:45 98.6 F 72 16 136/71 97 Weight Weight 175 lb 0.047 oz General Appearance: awake alert General - other findings: In no acute distress Eye: PERRL, anicteric sclera ENT: normocephalic atraumatic Heart: RRR, no murmur, no gallops, no rubs Respiratory: CTAB, no wheezes, no rales, no ronchi Gastrointestinal: soft, non-tender, non-distended, normal bowel sounds Extremities: no cyanosis, no clubbing, no edema Neurological: cranial nerve grossly intact, no weakness, no focal deficits Psychiatric: normal affect, normal behavior, A&O x 3 Hospitalist Results Result Diagrams: 10/28/20 13:07 10/28/20 13:07 Lab results: Laboratory Last Values WBC 5.2 thou/uL (4.8-10.8) 10/28/20 13:07 RBC 4.21 mill/uL (4.20-5.40) 10/28/20 13:07 Hgb 11.8 g/dL (12.0-16.0) L 10/28/20 13:07 Hct 37.6 % (36.0-47.0) 10/28/20 13:07 MCV 89.4 fL (78.0-98.0) 10/28/20 13:07 MCH 28.1 pg (27.0-31.0) 10/28/20 13:07 MCHC 31.4 g/dL (32.0-36.0) L 10/28/20 13:07 RDW 12.7 % (11.5-14.5) 10/28/20 13:07 Plt Count 152 thou/uL (130-400) 10/28/20 13:07 MPV 9.6 fL (7.4-10.4) 10/28/20 13:07 Neutrophils % 61.7 % (42.0-75.0) 10/28/20 13:07 Lymphocytes % 30.5 % (21.0-51.0) 10/28/20 13:07 Monocytes % 6.4 % (0.0-10.0) 10/28/20 13:07 Eosinophils % 0.4 % (0.0-10.0) 10/28/20 13:07 Basophils % 1.0 % (0.0-1.0) 10/28/20 13:07 Neutrophils # 3.2 thou/uL (1.40-6.50) 10/28/20 13:07 Lymphocytes # 1.6 thou/uL (1.20-3.40) 10/28/20 13:07 Monocytes # 0.3 thou/uL (0.11-0.59) 10/28/20 13:07 Eosinophils # 0.0 thou/uL (0.0-0.7) 10/28/20 13:07 Basophils # 0.1 thou/uL (0.0-0.2) 10/28/20 13:07 Sodium 136 mmol/L (136-145) 10/28/20 13:07 Potassium 3.5 mmol/L (3.5-5.1) 10/28/20 13:07 Chloride 102 mmol/L (98-107) 10/28/20 13:07 Carbon Dioxide 21 mmol/L (23-31) L 10/28/20 13:07 Anion Gap 17 mmol/L (10-20) 10/28/20 13:07 BUN 29 mg/dL (9.8-20.1) H 10/28/20 13:07 Creatinine 1.58 mg/dL (0.6-1.1) H 10/28/20 13:07 Estimated GFR (MDRD) 39 10/28/20 13:07 Glucose 350 mg/dL (83-110) H 10/28/20 13:07 Lactic Acid 1.1 mmol/L (0.5-2.2) 10/28/20 13:07 Calcium 7.7 mg/dL (7.8-10.44) L 10/28/20 13:07 Total Bilirubin 0.4 mg/dL (0.2-1.2) 10/28/20 13:07 AST 26 U/L (5-34) 10/28/20 13:07 ALT 11 U/L (8-55) 10/28/20 13:07 Alkaline Phosphatase 89 U/L (40-110) 10/28/20 13:07 Serum Total Protein 6.2 g/dL (5.8-8.1) 10/28/20 13:07 Albumin 2.7 g/dL (3.4-4.8) L 10/28/20 13:07 Globulin 3.5 g/dL (2.4-3.5) 10/28/20 13:07 Albumin/Globulin Ratio 0.8 g/dL (1.2-2.2) L 10/28/20 13:07 Urine Color Yellow (Yellow) 10/28/20 13:35 Urine Clarity Turbid (Clear) A 10/28/20 13:35 Urine pH 6.0 (5.0-9.0) 10/28/20 13:35 Ur Specific [place] 1.016 (1.002-1.036) 10/28/20 13:35 Urine Protein 600 mg/dL (Neg-Trace) A 10/28/20 13:35 Urine Glucose (UA) 500 mg/dL (Negative) A 10/28/20 13:35 Urine Ketones Negative mg/dL (Negative) 10/28/20 13:35 Urine Blood 2+ (Negative) A 10/28/20 13:35 Urine Nitrite Negative (Negative) 10/28/20 13:35 Urine Bilirubin Negative (Negative) 10/28/20 13:35 Urine Urobilinogen Normal mg/dL (Less than 2) 10/28/20 13:35 Ur Leukocyte Esterase Negative Rj/uL (Negative) 10/28/20 13:35 Urine RBC 4-6 HPF (0-3) A 10/28/20 13:35 Urine WBC 4-6 HPF (0-3) A 10/28/20 13:35 Ur Squamous Epith Cells 0-3 HPF (0-3) 10/28/20 13:35 Ur Transition Epith Cell 0-3 HPF (None Seen) A 10/28/20 13:35 Urine Bacteria 4+ HPF (None Seen) A 10/28/20 13:35 Urine Opiates Screen Not Detected (NotDetected) 10/28/20 13:35 Ur Oxycodone Screen Not Detected (NotDetected) 10/28/20 13:35 Urine Methadone Screen Not Detected (NotDetected) 10/28/20 13:35 Ur Propoxyphene Screen Not Detected (NotDetected) 10/28/20 13:35 Ur Barbiturates Screen Not Detected (NotDetected) 10/28/20 13:35 Ur Tricyclics Screen Not Detected (NotDetected) 10/28/20 13:35 Ur Phencyclidine Scrn Not Detected (NotDetected) 10/28/20 13:35 Ur Amphetamines Screen Not Detected (NotDetected) 10/28/20 13:35 U Methamphetamines Scrn Not Detected (NotDetected) 10/28/20 13:35 U Benzodiazepines Scrn Not Detected (NotDetected) 10/28/20 13:35 U Cocaine Metab Screen Not Detected (NotDetected) 10/28/20 13:35 U Cannabinoids Screen Not Detected (NotDetected) 10/28/20 13:35 Drug Screen Comment () 10/28/20 13:35 Influenza A RNA INAAT Not Detected (NotDetected) 10/28/20 13:12 Influenza B RNA INAAT Not Detected (NotDetected) 10/28/20 13:12 SARS-CoV-2 Rap RNA(RT-PCR) DETECTED (NotDetected) A* 10/28/20 13:12 Hospitalist H&P A/P Plan: This is a 69-year-old female patient history of systolic/diastolic heart failure, diabetes mellitus among several others who presents with fever and general weakness. His symptoms are concerning for possible UTI. Her Covid test however is positive. UTI Reported fever of 102 at home and temperature of up to 100 here. Started on vancomycin Zosynwe will continue on ceftriaxone for now. Follow-up on urine cultures Continue close monitoring. Acute encephalopathy This is mild likely due to UTI Is awaiting more seen her We will continue monitoror COVID-19 infection We will check CRP D-dimer and ferritin Start zinc vitamin C/D As needed oxygen as indicated Hold remdesivir/steroids for Hypertension blood pressure ranging between systolic 150s and 180s We will start home blood pressure medications History of diastolic and systolic heart failure Currently appears euvolemic Continue home medications once verified. Diabetes mellitus type 2 Correctional insulin Monitor glucose CKD Creatinine 1.5 history of care for 36 Apparently stable We will continue monitoring. Normocytic anemia This is mild Likely the setting of CKD Monitor close. CODE STATUSfull code DVT prophylaxisLovenox
[2020-10-29] MEDS ORDERED: hydrALAZINE 20 MG/ML VIAL SLOW IVP PRN ×2 (01:28→10:32)
[2020-10-29] MEDS ORDERED: Dextrose 50% Abboject 50 ML SYRINGE SLOW IVP PRN (03:43)
[2020-10-29] MEDS ORDERED: Dextrose 5% in Water 1,000 ML IV PRN (03:43)
[2020-10-29] MEDS: cefTRIAXone\\ROCEPHIN 1 GM in Sodium Chloride 0.9% 100 ML IVPB SCH (04:41)
[2020-10-29] MEDS: HumaLOG 300 UNITS/3 ML VIAL SC PRN ×4 (05:39→20:49)
[2020-10-29 05:57] LABS: #Lymphocytes 1.6 thou/uL (1.20-3.40); #Monocytes 0.4 thou/uL (0.11-0.59); #Neutrophils 2.8 thou/uL (1.40-6.50); %Basophils 0.1 % (0.0-1.0); %Eosinophils 0.3 % (0.0-10.0); %Lymphocytes 33.1 % (21.0-51.0); %Neutrophils 57.5 % (42.0-75.0); Hemoglobin 12.8 g/dL (12.0-16.0); Mean Corpuscular HGB CONC 30.7 g/dL (32.0-36.0); Mean Corpuscular Hemoglobin 27.5 pg (27.0-31.0); Mean Corpuscular Volume 89.7 fL (78.0-98.0); Mean Platelet Volume 9.8 fL (7.4-10.4); Platelet Count 159 thou/uL (130-400); RBC Distribution Width 12.9 % (11.5-14.5); Red Blood Cell (RBC) Count 4.64 mill/uL (4.20-5.40); White Blood Cell (WBC) Count 4.9 thou/uL (4.8-10.8)
[2020-10-29 06:21] LABS: Anion Gap 16 mmol/L (10-20); BUN (Urea Nitrogen) 24 mg/dL (9.8-20.1); Calc. Creatinine Clearance 43 mL/min (70-130); Calcium 8.1 mg/dL (7.8-10.44); Carbon Dioxide 22 mmol/L (23-31); Chloride 103 mmol/L (98-107); Glucose 318 mg/dL (83-110); Potassium 3.8 mmol/L (3.5-5.1); Sodium 137 mmol/L (136-145)
[2020-10-29] MEDS: Enoxaparin Sodium 30 MG/0.3 ML SYRINGE SC SCH ×2 (07:42→20:44)
[2020-10-29] MEDS: Furosemide 40 MG TAB PO SCH (07:43)
[2020-10-29] MEDS: Ascorbic Acid 500 mg Chewable Tablet PO SCH (07:43)
[2020-10-29] MEDS: Carvedilol 6.25 MG TAB PO SCH ×2 (07:43→17:36)
[2020-10-29] MEDS: Zinc Sulfate 220 MG CAP PO SCH (07:43)
[2020-10-29] MEDS: Spironolactone 25 MG TAB PO SCH (07:43)
[2020-10-29] MEDS: Aspirin Chewable 81 MG TAB PO SCH (07:43)
[2020-10-29] MEDS ORDERED: Enoxaparin Sodium 30 MG/0.3 ML SYRINGE SC SCH (09:00)
[2020-10-29] MEDS ORDERED: Cholecalciferol (Vitamin D3) 400 UNITS TAB PO SCH (09:00)
[2020-10-29] MEDS: Acetaminophen 325 MG TAB PO PRN (10:10)
[2020-10-29] MEDS ORDERED: Nitroglycerin 0.4 MG TAB (25 Tab Bottle) SL PRN (10:32)
--- NOTE | 2020-10-29 15:09 | PDOC.HOSPP ---
- Subjective Encounter Date: 10/29/20 Encounter Time: 12:10 Subjective: Patient resting she is comfortable no acute complaints. Patient lives with family. Admitted with a urinary tract infection. Covid positive. - Objective Vital Signs & Weight: Vital Signs (12 hours) Temp Pulse Resp BP Pulse Ox 10/29/20 12:00 99.4 F 73 20 113/68 95 10/29/20 10:10 100.5 F H 10/29/20 07:00 102.0 F H 89 18 139/68 96 10/29/20 05:56 100.4 F H 88 18 178/94 H 96 Weight Weight 175 lb 0.047 oz Result Diagrams: 10/29/20 05:42 10/29/20 05:42 Additional Labs: Accuchecks 10/29/20 10/29/20 11:50 05:24 POC Glucose 278 H 295 H Hospitalist ROS - Medication Medications: Active Medications Generic Name Dose Route Start Last Admin Trade Name Freq PRN Reason Stop Dose Admin Acetaminophen 650 mg 10/29/20 09:57 10/29/20 10:10 Acetaminophen 325 Mg Tab PO 650 mg Q6H PRN Administration Headache/Fever or Pain Ascorbic Acid 1,000 mg 10/29/20 09:00 10/29/20 07:43 Ascorbic Acid 500 Mg Chewable Tablet PO 1,000 mg DAILY DAVID Administration Aspirin 81 mg 10/29/20 09:00 10/29/20 07:43 Aspirin Chewable 81 Mg Tab PO 81 mg DAILY DAVID Administration Carvedilol 6.25 mg 10/29/20 08:00 10/29/20 07:43 Carvedilol 6.25 Mg Tab PO 6.25 mg BID- DAVID Administration Enoxaparin Sodium 30 mg 10/29/20 09:00 10/29/20 07:42 Enoxaparin Sodium 30 Mg/0.3 Ml Syringe SC 30 mg 0900,2100 DAVID Administration Furosemide 40 mg 10/29/20 09:00 10/29/20 07:43 Furosemide 40 Mg Tab PO 40 mg DAILY DAVID Administration Ceftriaxone Sodium 1 gm/ 100 mls @ 200 mls/hr 10/29/20 04:00 10/29/20 04:41 Sodium Chloride IVPB 100 mls Q24HR DAVID Administration Insulin Human Lispro 0 units 10/29/20 03:43 10/29/20 12:42 Humalog 300 Units/3 Ml Vial SC 4 unit .MILD SLIDING SCALE PRN Administration Mild Correctional Scale Spironolactone 12.5 mg 10/29/20 08:00 10/29/20 07:43 Spironolactone 25 Mg Tab PO 12.5 mg QAM-WM DAVID Administration Zinc Sulfate 220 mg 10/29/20 09:00 10/29/20 07:43 Zinc Sulfate 220 Mg Cap PO 220 mg DAILY DAVID Administration Hospitalist Exam Vitals: Vital Signs (12 hours) Temp Pulse Resp BP Pulse Ox 10/29/20 12:00 99.4 F 73 20 113/68 95 10/29/20 10:10 100.5 F H 10/29/20 07:00 102.0 F H 89 18 139/68 96 10/29/20 05:56 100.4 F H 88 18 178/94 H 96 Weight Weight 175 lb 0.047 oz General Appearance: NAD, awake alert Eye: PERRL ENT: normocephalic atraumatic Neck: supple Heart: RRR Respiratory: CTAB, normal chest expansion Gastrointestinal: soft, normal bowel sounds Neurological: cranial nerve grossly intact, no focal deficits Psychiatric: A&O x 3 Hosp A/P - Plan 69-year-old female patient history of systolic/diastolic heart failure, diabetes mellitus among several others who presents with fever and general weakness. His symptoms are concerning for possible UTI. Her Covid test however is positive. UTI Reported fever of 102 at home and temperature of up to 100 here. Started on vancomycin Zosyn - continue on ceftriaxone for now. Follow-up on urine cultures--- so far negative including blood culture Acute encephalopathy--- resolved This is mild likely due to UTI We will continue monitoror COVID-19 infection -t zinc vitamin C/D - sats good at 95% in the room at Hypertension -home blood pressure medications History of diastolic and systolic heart failure -Stable Diabetes mellitus type 2 Correctional insulin -Holding Metformin glipizide due to creatinine 1.5 CKD Creatinine 1.5 history of care for 36 Apparently stable We will continue monitoring. Normocytic anemia -Stable CODE STATUSfull code DVT prophylaxisLovenox
[2020-10-29] MEDS: Rosuvastatin 20 MG TAB PO SCH (20:44)
[2020-10-30] MEDS: cefTRIAXone\\ROCEPHIN 1 GM in Sodium Chloride 0.9% 100 ML IVPB SCH (04:33)
[2020-10-30] MEDS: Acetaminophen 325 MG TAB PO PRN (05:31)
[2020-10-30] MEDS: HumaLOG 300 UNITS/3 ML VIAL SC PRN (05:31)
[2020-10-30] MEDS ORDERED: Ibuprofen 200 MG TAB PO PRN (06:55)
[2020-10-30] MEDS: Dexamethasone 4 MG TAB PO SCH (08:48)
[2020-10-30] MEDS: Aspirin Chewable 81 MG TAB PO SCH (08:50)
[2020-10-30] MEDS: Cholecalciferol 1,000 UNITS (25 MCG) TAB PO SCH (08:50)
[2020-10-30] MEDS: Zinc Sulfate 220 MG CAP PO SCH (08:51)
[2020-10-30] MEDS: Carvedilol 6.25 MG TAB PO SCH ×2 (08:51→17:04)
[2020-10-30] MEDS: Ascorbic Acid 500 mg Chewable Tablet PO SCH (08:51)
[2020-10-30] MEDS: Furosemide 40 MG TAB PO SCH (08:51)
[2020-10-30] MEDS: Enoxaparin Sodium 30 MG/0.3 ML SYRINGE SC SCH ×2 (08:58→20:35)
[2020-10-30] MEDS ORDERED: Dextrose 50% Abboject 50 ML SYRINGE SLOW IVP PRN (10:35)
[2020-10-30] MEDS ORDERED: Dextrose 5% in Water 1,000 ML IV PRN (10:35)
[2020-10-30] MEDS: Spironolactone 25 MG TAB PO SCH (12:22)
[2020-10-30] MEDS: Insulin Regular 300 UNITS/3 ML VIAL SC SCH ×2 (12:26→17:01)
--- NOTE | 2020-10-30 14:42 | PDOC.HOSPP ---
- Subjective Encounter Date: 10/30/20 Encounter Time: 11:10 Subjective: Patient is resting in the bed comfortably. She is satting 90% in room air. - Objective Vital Signs & Weight: Vital Signs (12 hours) Temp Pulse Resp BP BP Pulse Ox 10/30/20 13:11 99.8 F H 71 20 149/76 H 90 L 10/30/20 08:51 156/70 H 10/30/20 07:00 100.8 F H 67 20 125/70 100 10/30/20 06:48 100.2 F H 156/70 H 10/30/20 06:01 100.8 F H 10/30/20 05:32 100.9 F H 67 18 182/82 H 100 10/30/20 05:31 100.9 F H Weight Weight 175 lb 0.047 oz I&O: 10/29/20 10/30/20 10/31/20 06:59 06:59 06:59 Output Total 600 Balance -600 Result Diagrams: 10/29/20 05:42 10/29/20 05:42 Additional Labs: Accuchecks 10/30/20 10/30/20 10/29/20 11:49 05:10 20:50 POC Glucose 350 H 253 H 276 H 10/29/20 16:01 POC Glucose 222 H Hospitalist ROS - Medication Medications: Active Medications Generic Name Dose Route Start Last Admin Trade Name Freq PRN Reason Stop Dose Admin Acetaminophen 650 mg 10/29/20 09:57 10/30/20 05:31 Acetaminophen 325 Mg Tab PO 650 mg Q6H PRN Administration Headache/Fever or Pain Ascorbic Acid 1,000 mg 10/29/20 09:00 10/30/20 08:51 Ascorbic Acid 500 Mg Chewable Tablet PO 1,000 mg DAILY DAVID Administration Aspirin 81 mg 10/29/20 09:00 10/30/20 08:50 Aspirin Chewable 81 Mg Tab PO 81 mg DAILY DAVID Administration Carvedilol 6.25 mg 10/29/20 08:00 10/30/20 08:51 Carvedilol 6.25 Mg Tab PO 6.25 mg BID- DAVID Administration Cholecalciferol 2,000 units 10/30/20 09:00 10/30/20 08:50 Cholecalciferol 1,000 Units (25 Mcg) Tab PO 2,000 units DAILY DAVID Administration Dexamethasone 6 mg 10/30/20 08:00 10/30/20 08:48 Dexamethasone 4 Mg Tab PO 6 mg QAM-WM DAVID Administration Enoxaparin Sodium 30 mg 10/29/20 09:00 10/30/20 08:58 Enoxaparin Sodium 30 Mg/0.3 Ml Syringe SC 30 mg 0900,2100 DAVID Administration Furosemide 40 mg 10/29/20 09:00 10/30/20 08:51 Furosemide 40 Mg Tab PO 40 mg DAILY DAVID Administration Hydralazine HCl 10 mg 10/29/20 10:32 10/30/20 05:31 Hydralazine 20 Mg/Ml Vial SLOW IVP 10 mg Q4H PRN Administration Blood Pressure Ceftriaxone Sodium 1 gm/ 100 mls @ 200 mls/hr 10/29/20 04:00 10/30/20 04:33 Sodium Chloride IVPB 100 mls Q24HR DAVID Administration Insulin Human Regular 0 units 10/30/20 10:45 10/30/20 12:26 Insulin Regular 300 Units/3 Ml Vial SC 8 unit .MODERATE SLIDING SC DAVID Administration Rosuvastatin Calcium 20 mg 10/29/20 21:00 10/29/20 20:44 Rosuvastatin 20 Mg Tab PO 20 mg HS DAVID Administration Spironolactone 12.5 mg 10/29/20 08:00 10/30/20 12:22 Spironolactone 25 Mg Tab PO 12.5 mg QAM-WM DAVID Administration Zinc Sulfate 220 mg 10/29/20 09:00 10/30/20 08:51 Zinc Sulfate 220 Mg Cap PO 220 mg DAILY DAVID Administration Hospitalist Exam Vitals: Vital Signs (12 hours) Temp Pulse Resp BP BP Pulse Ox 10/30/20 13:11 99.8 F H 71 20 149/76 H 90 L 10/30/20 08:51 156/70 H 10/30/20 07:00 100.8 F H 67 20 125/70 100 10/30/20 06:48 100.2 F H 156/70 H 10/30/20 06:01 100.8 F H 10/30/20 05:32 100.9 F H 67 18 182/82 H 100 10/30/20 05:31 100.9 F H Weight Weight 175 lb 0.047 oz General Appearance: NAD, awake alert Eye: PERRL ENT: normocephalic atraumatic Neck: supple Heart: RRR Respiratory: CTAB, normal chest expansion Gastrointestinal: soft, normal bowel sounds Neurological: cranial nerve grossly intact, no focal deficits Psychiatric: A&O x 3 Hosp A/P - Plan 69-year-old female patient history of systolic/diastolic heart failure, diabetes mellitus among several others who presents with fever and general weakness. His symptoms are concerning for possible UTI. Her Covid test however is positive. UTI Reported fever of 102 at home and temperature of up to 100 here. Started on vancomycin Zosyn - continue on ceftriaxone for now. Acute encephalopathy--- resolved This is mild likely due to UTI COVID-19 infection -t zinc vitamin C/D - sats good at 95% in the room at Hypertension -home blood pressure medications History of diastolic and systolic heart failure -Stable Diabetes mellitus type 2 Correctional insulin -Holding Metformin glipizide due to creatinine 1.5 CKD Creatinine 1.5 history of care for 36 Apparently stable We will continue monitoring. Normocytic anemia -Stable 7th We will ambulate her with the pulse ox to decide whether she needs home oxygen Physical therapy consult placed Cultures negative so far both blood and urine -Continue with the ceftriaxone and Zithromax to cover for Covid pneumonia CODE STATUSfull code DVT prophylaxisLovenox
[2020-10-30] MEDS: metFORMIN 500 MG TAB PO SCH (17:04)
[2020-10-30] MEDS: glipiZIDE 5 MG TAB PO SCH (17:04)
[2020-10-30] MEDS: Rosuvastatin 20 MG TAB PO SCH (20:35)
[2020-10-31 07:51] VITALS: TEMP 98.7
[2020-10-31] MEDS: Dexamethasone 4 MG TAB PO SCH (08:47)
[2020-10-31] MEDS: Cholecalciferol 1,000 UNITS (25 MCG) TAB PO SCH (08:47)
[2020-10-31] MEDS: glipiZIDE 5 MG TAB PO SCH (08:47)
[2020-10-31] MEDS: Aspirin Chewable 81 MG TAB PO SCH (08:47)
[2020-10-31] MEDS: Furosemide 40 MG TAB PO SCH (08:48)
[2020-10-31] MEDS: Zinc Sulfate 220 MG CAP PO SCH (08:48)
[2020-10-31] MEDS: metFORMIN 500 MG TAB PO SCH (08:48)
[2020-10-31] MEDS: Ascorbic Acid 500 mg Chewable Tablet PO SCH (08:48)
[2020-10-31] MEDS: Spironolactone 25 MG TAB PO SCH (08:48)
[2020-10-31] MEDS: Carvedilol 6.25 MG TAB PO SCH (08:48)
[2020-10-31 08:51] LABS: Anion Gap 17 mmol/L (10-20); BUN (Urea Nitrogen) 30 mg/dL (9.8-20.1); Calc. Creatinine Clearance 40 mL/min (70-130); Calcium 7.8 mg/dL (7.8-10.44); Carbon Dioxide 22 mmol/L (23-31); Chloride 103 mmol/L (98-107); Glucose 276 mg/dL (83-110); Potassium 3.6 mmol/L (3.5-5.1); Sodium 138 mmol/L (136-145)
[2020-10-31] MEDS: Enoxaparin Sodium 30 MG/0.3 ML SYRINGE SC SCH (08:51)
[2020-10-31] MEDS ORDERED: Azithromycin 200 MG/5 ML Oral Suspension PO SCH (09:00)
[2020-10-31] MEDS ORDERED: Lisinopril 5 MG TAB PO SCH (09:00)
[2020-10-31] MEDS ORDERED: hydrALAZINE 20 MG/ML VIAL SLOW IVP PRN (09:17)
[2020-10-31 09:20] LABS: #Lymphocytes 1.4 thou/uL (1.20-3.40); #Monocytes 0.4 thou/uL (0.11-0.59); #Neutrophils 3.4 thou/uL (1.40-6.50); %Eosinophils 0.2 % (0.0-10.0); %Lymphocytes 27.7 % (21.0-51.0); %Monocytes 6.9 % (0.0-10.0); %Neutrophils 65.2 % (42.0-75.0); Hemoglobin 12.4 g/dL (12.0-16.0); Mean Corpuscular HGB CONC 31.4 g/dL (32.0-36.0); Mean Corpuscular Hemoglobin 28.4 pg (27.0-31.0); Mean Corpuscular Volume 90.4 fL (78.0-98.0); Mean Platelet Volume 10.7 fL (7.4-10.4); Platelet Count 163 thou/uL (130-400); Red Blood Cell (RBC) Count 4.36 mill/uL (4.20-5.40); White Blood Cell (WBC) Count 5.2 thou/uL (4.8-10.8)
[2020-10-31] MEDS: Insulin Regular 300 UNITS/3 ML VIAL SC SCH (12:09)
[2020-10-31 13:30] VITALS: BP 148/74
--- NOTE | 2020-10-31 14:32 | PDOC.DS.DS ---
Provider Date of Admission: 10/28/20 16:37 Admitting Provider: Chelsea Dumont MD Course Hospital Course: 69-year-old female patient history of systolic/diastolic heart failure, diabetes mellitus among several others who presents with fever and general weakness. His symptoms are concerning for possible UTI. Her Covid test however is positive. UTI Reported fever of 102 at home and temperature of up to 100 here. Started on vancomycin Zosyn changed to ceftriaxone. Both blood and urine cultures were negative. Acute encephalopathy--- resolved This is mild likely due to UTI COVID-19 infection -She is asymptomatic for the most part. -t zinc vitamin C/D - sats good at 95% in the room at Hypertension -home blood pressure medications History of diastolic and systolic heart failure -Stable Diabetes mellitus type 2 -Stable CKD Normocytic anemia -Stable Patient does not require any aggressive treatment for Covid infection she is asymptomatic for the most part. She is taking Keflex as her home regimen which she can continue for empiric treatment of her UTI. Continue with the vitamin C vitamin D and zinc for Covid. Clinically stable to be discharged home today. Discharge time over 30 minutes. Resuscitation Status: 10/28/20 21:12 Resuscitation Status Routine Resuscitation Status: FULL: Full Resuscitation Lab Results: 10/31/20 08:19 10/31/20 08:19 Abnormal Lab Results - Last 48 hrs 10/31/20 08:19: Carbon Dioxide 22 L, BUN 30 H, Creatinine 1.61 H 10/31/20 08:19: MCHC 31.4 L, MPV 10.7 H Microbiology - Entire Visit 10/28/20 13:07 Venous blood - Left Arm Blood Culture - Preliminary NO GROWTH AT 48 HOURS 10/28/20 13:07 Venous blood - Left Hand Blood Culture - Preliminary NO GROWTH AT 48 HOURS 10/28/20 13:35 Urine Straight Catheter Urine Culture - Final NO GROWTH AT 48 HOURS Vitals: Vital Signs (12 hours) Temp Pulse Resp BP BP Pulse Ox 10/31/20 13:29 98.7 F 66 18 148/74 H 93 L 10/31/20 08:48 69 150/75 H 10/31/20 08:00 92 L 10/31/20 07:51 98.7 F 69 18 150/75 H 92 L 10/31/20 06:00 98.5 F 69 18 152/75 H 92 L 10/31/20 05:31 98.5 F 69 18 152/75 H 92 L Weight Weight 175 lb 0.047 oz Physical Exam: The patient was seen and examined on the day of discharge. Patient is comfortable she is ambulating she is in room air without any short of breath and respiratory distress. Discharge plan discussed and she is comfortable going home today. General Appearance: NAD, awake alert Eye: PERRL ENT: normocephalic atraumatic Neck: supple Respiratory: CTAB, normal chest expansion Cardiovascular: RRR Gastrointestinal: soft, normal bowel sounds Plan Prescriptions: Zinc Sulfate 220 mg PO DAILY 10 Days #10 cap Home Medications: Medication Instructions Recorded Confirmed Type Cholecalciferol (Vitamin D3) 2,000 unit PO DAILY 02/20/15 08/30/19 History [Vitamin D3] Nitroglycerin [Nitrostat] 0.4 mg SL Q5MIN PRN #0 tab 02/22/15 08/30/19 Rx Furosemide [Lasix] 40 mg PO DAILY #30 tab 03/29/19 08/30/19 Rx Metolazone 2.5 mg PO PRN PRN 06/04/19 08/30/19 History Carvedilol [Coreg] 6.25 mg PO BID-WM #60 tab 06/16/19 08/30/19 Rx Lisinopril 5 mg PO DAILY 08/30/19 08/30/19 History Aspirin Chewable [Aspirin Chewable 81 mg PO DAILY tab 09/05/19 Rx Tablet] Cephalexin [Keflex] 500 mg PO QID #28 cap 09/05/19 Rx Glipizide/Metformin HCl 1 tablet PO BID-WM #60 tablet 09/05/19 Rx [glipiZIDE/metFORMIN HCl] Rosuvastatin [Crestor] 20 mg PO HS #30 tab 09/05/19 Rx Spironolactone [Aldactone] 12.5 mg PO QAM-WM #30 tab 09/05/19 Rx Zinc Sulfate 220 mg PO DAILY 10 Days #10 cap 10/31/20 Rx Allergies: Sulfa (Sulfonamide Antibiotics) Allergy (Unknown, Verified 10/28/20 17:22) Activity:: Activity as Tolerated Nourishment:: Regular Diet Disposition: HOME HEALTH Quality CORE MEASURES:: N/A
== END 2020-10-31 14:27 | disposition home or self-care (01) | DRG 689 ==
LOC: ERS 12:18 → T4-A 16:37
PROVIDERS: ADMIT Internal Medicine; ATTEND Internal Medicine
DX: N39.0 Urinary tract infection, site not specified (principal); U07.1 COVID-19; I13.0 Hypertensive heart and chronic kidney disease with heart failure and stage 1 through stage 4 chronic kidney disease, or unspecified chronic kidney disease; G93.49 Other encephalopathy; I50.42 Chronic combined systolic (congestive) and diastolic (congestive) heart failure; I42.9 Cardiomyopathy, unspecified; N18.9 Chronic kidney disease, unspecified; E11.22 Type 2 diabetes mellitus with diabetic chronic kidney disease; E78.00 Pure hypercholesterolemia, unspecified; M19.90 Unspecified osteoarthritis, unspecified site; E86.0 Dehydration; D63.1 Anemia in chronic kidney disease; Z79.899 Other long term (current) drug therapy; Z79.82 Long term (current) use of aspirin; Z79.84 Long term (current) use of oral hypoglycemic drugs; Z90.710 Acquired absence of both cervix and uterus; Z95.810 Presence of automatic (implantable) cardiac defibrillator; Z88.2 Allergy status to sulfonamides; Z95.1 Presence of aortocoronary bypass graft
CPT/HCPCS: 0240U; 36415; 36416; 51701; 71045; 80048; 80053; 80306; 81003; 81015; 82728; 83605; 85025; 85379; 86140; 87040; 87086; 93005; 96365; J0360; J0696; J1650; J1815; J2543; J3370; J3490; J8540

== ENCOUNTER 2020-12-21 09:59 | Inpatient (IN) | payer MEDICARE ==
[2020-12-21] MEDS ORDERED: Furosemide 40 MG/4 ML VIAL ONE (11:20)
[2020-12-21] MEDS ORDERED: Nitroglycerin 2% Ointment 1 INCH/1 GM Packet ONE (11:20)
[2020-12-21 12:11] LABS: #Eosinphils 0.3 thou/uL (0.0-0.7); #Lymphocytes 1.6 thou/uL (1.20-3.40); #Monocytes 0.5 thou/uL (0.11-0.59); #Neutrophils 7.4 thou/uL (1.40-6.50); %Basophils 0.1 % (0.0-1.0); %Eosinophils 3.3 % (0.0-10.0); %Monocytes 4.7 % (0.0-10.0); %Neutrophils 75.9 % (42.0-75.0); Hemoglobin 10.5 g/dL (12.0-16.0); Mean Corpuscular HGB CONC 31.3 g/dL (32.0-36.0); Mean Corpuscular Hemoglobin 28.4 pg (27.0-31.0); Mean Corpuscular Volume 90.9 fL (78.0-98.0); Mean Platelet Volume 10.2 fL (7.4-10.4); Platelet Count 256 thou/uL (130-400); RBC Distribution Width 15.9 % (11.5-14.5); Red Blood Cell (RBC) Count 3.69 mill/uL (4.20-5.40); White Blood Cell (WBC) Count 9.8 thou/uL (4.8-10.8)
[2020-12-21 12:39] LABS: ALT (SGPT) 9 U/L (8-55); AST (SGOT) 26 U/L (5-34); Albumin 2.6 g/dL (3.4-4.8); Alkaline Phosphatase 132 U/L (40-110); Anion Gap 14 mmol/L (10-20); BUN (Urea Nitrogen) 19 mg/dL (9.8-20.1); Bilirubin, Total 0.5 mg/dL (0.2-1.2); Calc. Creatinine Clearance 0 mL/min (70-130); Calcium 8.2 mg/dL (7.8-10.44); Carbon Dioxide 27 mmol/L (23-31); Chloride 106 mmol/L (98-107); Globulin 4.9 g/dL (2.4-3.5); Glucose 209 mg/dL (83-110); Potassium 5.1 mmol/L (3.5-5.1); Protein, Total 7.5 g/dL (5.8-8.1); Sodium 142 mmol/L (136-145)
[2020-12-21 12:52] LABS: CKMB 1.2 ng/mL (0-6.6)
[2020-12-21] MEDS ORDERED: Aspirin Chewable 81 MG TAB ONE (13:00)
[2020-12-21] MEDS ORDERED: HumaLOG 300 UNITS/3 ML VIAL SC PRN (15:17)
[2020-12-21] MEDS ORDERED: Dextrose 5% in Water 1,000 ML IV PRN (15:17)
[2020-12-21] MEDS ORDERED: Dextrose 50% Abboject 50 ML SYRINGE SLOW IVP PRN (15:17)
[2020-12-21] MEDS ORDERED: Acetaminophen 325 MG TAB PO PRN (15:17)
[2020-12-21] MEDS ORDERED: hydrALAZINE 20 MG/ML VIAL SLOW IVP PRN (15:31)
[2020-12-21 16:25] LABS: Troponin I 0.058 ng/mL (< 0.028)
[2020-12-21] MEDS ORDERED: Magnesium 2 GM/50 ML 2 GM in Premix Bag 1 BAG IVPB SCH (17:00)
[2020-12-21] MEDS ORDERED: Magnesium 2 GM/50 ML BAG (IN WATER) ONE (17:15)
[2020-12-21] MEDS: Nitroglycerin 2% Ointment 1 INCH/1 GM Packet TOP SCH (21:31)
[2020-12-21 23:33] VITALS: BMI 32.1
[2020-12-22 04:32] LABS: #Basophils 0.1 thou/uL (0.0-0.2); #Eosinphils 0.4 thou/uL (0.0-0.7); #Lymphocytes 1.4 thou/uL (1.20-3.40); #Monocytes 0.7 thou/uL (0.11-0.59); #Neutrophils 5.8 thou/uL (1.40-6.50); %Basophils 0.7 % (0.0-1.0); %Eosinophils 4.7 % (0.0-10.0); %Lymphocytes 17.1 % (21.0-51.0); %Monocytes 7.9 % (0.0-10.0); %Neutrophils 69.6 % (42.0-75.0); Hemoglobin 9.5 g/dL (12.0-16.0); Mean Corpuscular HGB CONC 30.8 g/dL (32.0-36.0); Mean Corpuscular Hemoglobin 28.1 pg (27.0-31.0); Mean Corpuscular Volume 91.4 fL (78.0-98.0); Mean Platelet Volume 8.7 fL (7.4-10.4); Platelet Count 344 thou/uL (130-400); RBC Distribution Width 15.4 % (11.5-14.5); Red Blood Cell (RBC) Count 3.36 mill/uL (4.20-5.40); White Blood Cell (WBC) Count 8.3 thou/uL (4.8-10.8)
[2020-12-22 04:51] LABS: Anion Gap 11 mmol/L (10-20); BUN (Urea Nitrogen) 19 mg/dL (9.8-20.1); Calc. Creatinine Clearance 54 mL/min (70-130); Calcium 7.9 mg/dL (7.8-10.44); Carbon Dioxide 30 mmol/L (23-31); Chloride 103 mmol/L (98-107); Glucose 248 mg/dL (83-110); Potassium 3.6 mmol/L (3.5-5.1); Sodium 140 mmol/L (136-145)
[2020-12-22] MEDS: Furosemide 40 MG/4 ML VIAL SLOW IVP SCH ×2 (05:24→15:03)
[2020-12-22] MEDS ORDERED: Potassium Chloride 20 MEQ TAB PO SCH (08:45)
[2020-12-22] MEDS ORDERED: Magnesium 2 GM/50 ML 2 GM in Premix Bag 1 BAG IVPB SCH (08:45)
[2020-12-22] MEDS ORDERED: Carvedilol 6.25 MG TAB PO SCH ×2 (08:45→17:00)
[2020-12-22] MEDS ORDERED: Electrolyte Replacement Protocol 1 EACH FS SCH (08:45)
[2020-12-22 08:47] LABS: SARS-CoV-2 PCR by NAA Indeterminate (NotDetected)
[2020-12-22] MEDS ORDERED: Aspirin 325 mg Enteric Coated Tablet PO SCH (09:00)
[2020-12-22] MEDS: Enoxaparin Sodium 40 MG/0.4 ML SYRINGE SC SCH (09:38)
[2020-12-22] MEDS: Nitroglycerin 2% Ointment 1 INCH/1 GM Packet TOP SCH ×2 (09:38→20:35)
[2020-12-22] MEDS: HumaLOG 300 UNITS/3 ML VIAL SC PRN ×2 (12:50→18:14)
[2020-12-22] MEDS: Carvedilol 25 MG TAB PO SCH (18:14)
[2020-12-23] MEDS: Furosemide 40 MG/4 ML VIAL SLOW IVP SCH ×2 (04:43→15:16)
[2020-12-23 05:32] LABS: #Eosinphils 0.5 thou/uL (0.0-0.7); #Lymphocytes 1.8 thou/uL (1.20-3.40); #Monocytes 0.6 thou/uL (0.11-0.59); #Neutrophils 5.6 thou/uL (1.40-6.50); %Basophils 0.6 % (0.0-1.0); %Eosinophils 5.8 % (0.0-10.0); %Lymphocytes 21.3 % (21.0-51.0); %Monocytes 6.6 % (0.0-10.0); %Neutrophils 65.7 % (42.0-75.0); Hemoglobin 10.3 g/dL (12.0-16.0); Mean Corpuscular Hemoglobin 28.4 pg (27.0-31.0); Mean Corpuscular Volume 91.5 fL (78.0-98.0); Mean Platelet Volume 9.3 fL (7.4-10.4); Platelet Count 321 thou/uL (130-400); RBC Distribution Width 15.6 % (11.5-14.5); Red Blood Cell (RBC) Count 3.62 mill/uL (4.20-5.40); White Blood Cell (WBC) Count 8.5 thou/uL (4.8-10.8)
[2020-12-23 06:00] LABS: Anion Gap 15 mmol/L (10-20); BUN (Urea Nitrogen) 17 mg/dL (9.8-20.1); Calc. Creatinine Clearance 58 mL/min (70-130); Calcium 8.3 mg/dL (7.8-10.44); Carbon Dioxide 25 mmol/L (23-31); Chloride 102 mmol/L (98-107); Glucose 204 mg/dL (83-110); Magnesium 1.9 mg/dL (1.6-2.6); Potassium 3.7 mmol/L (3.5-5.1); Sodium 138 mmol/L (136-145)
[2020-12-23] MEDS ORDERED: Magnesium 2 GM/50 ML 2 GM in Premix Bag 1 BAG IVPB SCH (06:15)
[2020-12-23] MEDS: HumaLOG 300 UNITS/3 ML VIAL SC PRN ×2 (06:22→18:32)
[2020-12-23] MEDS: Enoxaparin Sodium 40 MG/0.4 ML SYRINGE SC SCH (09:36)
[2020-12-23] MEDS: Aspirin 81 mg Enteric Coated Tablet PO SCH (09:37)
[2020-12-23] MEDS: Potassium Chloride 20 MEQ TAB PO SCH (09:37)
[2020-12-23] MEDS: Nitroglycerin 2% Ointment 1 INCH/1 GM Packet TOP SCH ×2 (09:37→20:56)
[2020-12-23] MEDS: Carvedilol 25 MG TAB PO SCH ×2 (09:38→18:31)
[2020-12-23] MEDS ORDERED: glipiZIDE 5 MG TAB PO SCH (18:30)
[2020-12-24 04:35] LABS: #Basophils 0.1 thou/uL (0.0-0.2); #Eosinphils 0.4 thou/uL (0.0-0.7); #Lymphocytes 1.4 thou/uL (1.20-3.40); #Monocytes 0.6 thou/uL (0.11-0.59); #Neutrophils 3.9 thou/uL (1.40-6.50); %Basophils 0.8 % (0.0-1.0); %Eosinophils 6.8 % (0.0-10.0); %Lymphocytes 22.5 % (21.0-51.0); %Monocytes 9.5 % (0.0-10.0); %Neutrophils 60.5 % (42.0-75.0); Mean Corpuscular HGB CONC 30.7 g/dL (32.0-36.0); Mean Corpuscular Volume 91.2 fL (78.0-98.0); Platelet Count 287 thou/uL (130-400); RBC Distribution Width 15.6 % (11.5-14.5); Red Blood Cell (RBC) Count 3.22 mill/uL (4.20-5.40); White Blood Cell (WBC) Count 6.4 thou/uL (4.8-10.8)
[2020-12-24 04:55] LABS: Anion Gap 15 mmol/L (10-20); BUN (Urea Nitrogen) 19 mg/dL (9.8-20.1); Calc. Creatinine Clearance 59 mL/min (70-130); Calcium 8.2 mg/dL (7.8-10.44); Carbon Dioxide 26 mmol/L (23-31); Chloride 104 mmol/L (98-107); Glucose 112 mg/dL (83-110); Potassium 3.5 mmol/L (3.5-5.1); Sodium 141 mmol/L (136-145)
[2020-12-24] MEDS: Furosemide 40 MG/4 ML VIAL SLOW IVP SCH ×2 (06:12→15:18)
[2020-12-24] MEDS ORDERED: Magnesium 2 GM/50 ML 2 GM in Premix Bag 1 BAG IVPB SCH (06:30)
[2020-12-24] MEDS ORDERED: Potassium Chloride 20 MEQ TAB PO SCH (06:45)
[2020-12-24] MEDS: glipiZIDE 5 MG TAB PO SCH ×2 (07:31→17:07)
[2020-12-24] MEDS: Aspirin 81 mg Enteric Coated Tablet PO SCH (07:31)
[2020-12-24] MEDS: Carvedilol 25 MG TAB PO SCH ×2 (07:31→17:04)
[2020-12-24] MEDS: Potassium Chloride 20 MEQ TAB PO SCH (07:31)
[2020-12-24] MEDS: Enoxaparin Sodium 40 MG/0.4 ML SYRINGE SC SCH (07:31)
[2020-12-24] MEDS: HumaLOG 300 UNITS/3 ML VIAL SC PRN (12:23)
[2020-12-25] MEDS: Furosemide 40 MG/4 ML VIAL SLOW IVP SCH ×2 (06:11→14:18)
[2020-12-25] MEDS: HumaLOG 300 UNITS/3 ML VIAL SC PRN ×2 (06:15→11:07)
[2020-12-25] MEDS: Carvedilol 25 MG TAB PO SCH ×2 (08:27→16:59)
[2020-12-25] MEDS: glipiZIDE 5 MG TAB PO SCH ×2 (08:27→16:59)
[2020-12-25] MEDS: Aspirin 81 mg Enteric Coated Tablet PO SCH (08:27)
[2020-12-25] MEDS: Potassium Chloride 20 MEQ TAB PO SCH (08:27)
[2020-12-25] MEDS: Enoxaparin Sodium 40 MG/0.4 ML SYRINGE SC SCH (08:27)
[2020-12-25] MEDS ORDERED: Lantus 1000 UNITS/10 ML VIAL SC SCH (09:00)
[2020-12-25] MEDS: metFORMIN 500 MG TAB PO SCH (16:59)
[2020-12-26] MEDS: Furosemide 40 MG/4 ML VIAL SLOW IVP SCH (06:05)
[2020-12-26 07:19] VITALS: BP 156/69; TEMP 98
[2020-12-26] MEDS: glipiZIDE 5 MG TAB PO SCH (08:02)
[2020-12-26] MEDS: metFORMIN 500 MG TAB PO SCH (08:02)
[2020-12-26] MEDS: Enoxaparin Sodium 40 MG/0.4 ML SYRINGE SC SCH (08:02)
[2020-12-26] MEDS: Aspirin 81 mg Enteric Coated Tablet PO SCH (08:02)
[2020-12-26] MEDS: Potassium Chloride 20 MEQ TAB PO SCH (08:02)
[2020-12-26] MEDS: Carvedilol 25 MG TAB PO SCH (08:13)
[2020-12-26] MEDS ORDERED: Potassium Chloride 20 MEQ TAB PO SCH (09:00)
[2020-12-26] MEDS ORDERED: Lantus 1000 UNITS/10 ML VIAL SC SCH (09:00)
[2020-12-27] MEDS ORDERED: Furosemide 40 MG TAB PO SCH (07:30)
[2020-12-27] MEDS ORDERED: Potassium Chloride 20 MEQ TAB PO SCH (08:00)
== END 2020-12-26 11:38 | disposition home or self-care (01) | DRG 291 ==
LOC: ERS 09:59 → ERHOLD 13:02 → 2NO 20:17
PROVIDERS: ADMIT Internal Medicine; ATTEND Internal Medicine
DX: I13.0 Hypertensive heart and chronic kidney disease with heart failure and stage 1 through stage 4 chronic kidney disease, or unspecified chronic kidney disease (principal); I50.23 Acute on chronic systolic (congestive) heart failure; J96.21 Acute and chronic respiratory failure with hypoxia; E78.5 Hyperlipidemia, unspecified; M19.90 Unspecified osteoarthritis, unspecified site; E11.22 Type 2 diabetes mellitus with diabetic chronic kidney disease; D63.1 Anemia in chronic kidney disease; D53.9 Nutritional anemia, unspecified; E87.8 Other disorders of electrolyte and fluid balance, not elsewhere classified; I25.10 Atherosclerotic heart disease of native coronary artery without angina pectoris; E66.9 Obesity, unspecified; Z20.822 Contact with and (suspected) exposure to COVID-19; I25.5 Ischemic cardiomyopathy; Z68.31 Body mass index [BMI] 31.0-31.9, adult; N18.30 Chronic kidney disease, stage 3 unspecified; Z88.2 Allergy status to sulfonamides; Z90.710 Acquired absence of both cervix and uterus; Z79.82 Long term (current) use of aspirin; Z95.1 Presence of aortocoronary bypass graft
CPT/HCPCS: 36415; 36416; 71045; 71046; 80048; 80053; 82553; 83735; 83880; 84443; 84484; 85025; 87635; 93005; 93306; 93798; 96374; J0360; J1650; J1815; J1940; J3475; U0003; U0005

== ENCOUNTER 2021-06-23 02:51 | Inpatient (IN) | payer MEDICARE ==
[2021-06-23 04:05] LABS: #Basophils 0.1 thou/uL (0.0-0.2); #Eosinphils 0.2 thou/uL (0.0-0.7); #Lymphocytes 1.6 thou/uL (1.20-3.40); #Monocytes 0.6 thou/uL (0.11-0.59); #Neutrophils 5.5 thou/uL (1.40-6.50); %Basophils 0.7 % (0.0-1.0); %Eosinophils 2.9 % (0.0-10.0); %Lymphocytes 19.9 % (21.0-51.0); %Monocytes 7.8 % (0.0-10.0); %Neutrophils 68.7 % (42.0-75.0); Hemoglobin 10.7 g/dL (12.0-16.0); Mean Corpuscular Hemoglobin 27.6 pg (27.0-31.0); Mean Corpuscular Volume 88.9 fL (78.0-98.0); Mean Platelet Volume 10.1 fL (7.4-10.4); Platelet Count 164 thou/uL (130-400); RBC Distribution Width 15.6 % (11.5-14.5); Red Blood Cell (RBC) Count 3.87 mill/uL (4.20-5.40)
[2021-06-23 04:35] LABS: Bacteria/HPF None Seen HPF (None Seen); Bilirubin Negative (Negative); Blood, Urine 3+ (Negative); Clarity Extra Turbid (Clear); Glucose, Urine (Dipstick) Normal (Negative); Ketone, Urine Negative (Negative); Leukocyte 500 Leu/uL (Negative); Nitrite Negative (Negative); Protein, Urine (Dipstick) 300 mg/dL (Neg-Trace); Specific Gravity, Urine 1.017 (1.002-1.036); Squamous Epithelial 0-3 HPF (0-3); WBC/HPF Greater than 50 HPF (0-3); pH, Urine 7.5 (5.0-9.0)
[2021-06-23 04:42] LABS: CKMB 1.5 ng/mL (0-6.6)
[2021-06-23 05:59] LABS: ALT (SGPT) 9 U/L (8-55); AST (SGOT) 19 U/L (5-34); Alkaline Phosphatase 101 U/L (40-110); Anion Gap 13 mmol/L (10-20); BUN (Urea Nitrogen) 31 mg/dL (9.8-20.1); Bilirubin, Total 0.6 mg/dL (0.2-1.2); Calc. Creatinine Clearance 0 mL/min (70-130); Calcium 8.9 mg/dL (7.8-10.44); Carbon Dioxide 26 mmol/L (23-31); Chloride 105 mmol/L (98-107); Glucose 187 mg/dL (83-110); Potassium 4.6 mmol/L (3.5-5.1); Sodium 139 mmol/L (136-145)
[2021-06-23 05:59] LABS: SARS-CoV-2 NAA Rapid Test Not Detected (NotDetected)
[2021-06-23] MEDS ORDERED: Furosemide 40 MG/4 ML VIAL ONE ×2 (06:04→13:53)
[2021-06-23] MEDS ORDERED: Calcium Carbonate 500 MG ChewTAB PO PRN (13:10)
[2021-06-23] MEDS ORDERED: Ondansetron PF 4 MG/2 ML Vial IVP PRN (13:10)
[2021-06-23] MEDS ORDERED: Nitroglycerin 0.4 MG TAB (25 Tab Bottle) SL PRN (13:12)
[2021-06-23] MEDS: Furosemide 40 MG/4 ML VIAL SLOW IVP SCH (14:01)
[2021-06-23 14:27] LABS: CKMB 2.1 ng/mL (0-6.6)
[2021-06-23 19:35] VITALS: BMI 31.3
[2021-06-23] MEDS: Carvedilol 25 MG TAB PO SCH (20:35)
[2021-06-23] MEDS ORDERED: Famotidine/PF 20 mg/2ml Vial SLOW IVP SCH (21:00)
[2021-06-24 05:35] LABS: #Eosinphils 0.3 thou/uL (0.0-0.7); #Lymphocytes 1.5 thou/uL (1.20-3.40); #Monocytes 0.5 thou/uL (0.11-0.59); #Neutrophils 3.4 thou/uL (1.40-6.50); %Basophils 0.4 % (0.0-1.0); %Eosinophils 5.3 % (0.0-10.0); %Lymphocytes 25.8 % (21.0-51.0); %Monocytes 8.6 % (0.0-10.0); %Neutrophils 59.8 % (42.0-75.0); Hemoglobin 9.5 g/dL (12.0-16.0); Mean Corpuscular HGB CONC 30.1 g/dL (32.0-36.0); Mean Corpuscular Hemoglobin 26.9 pg (27.0-31.0); Mean Corpuscular Volume 89.2 fL (78.0-98.0); Mean Platelet Volume 8.5 fL (7.4-10.4); Platelet Count 285 thou/uL (130-400); RBC Distribution Width 15.5 % (11.5-14.5); Red Blood Cell (RBC) Count 3.53 mill/uL (4.20-5.40); White Blood Cell (WBC) Count 5.8 thou/uL (4.8-10.8)
[2021-06-24 05:54] LABS: Anion Gap 12 mmol/L (10-20); BUN (Urea Nitrogen) 33 mg/dL (9.8-20.1); Calc. Creatinine Clearance 43 mL/min (70-130); Calcium 8.8 mg/dL (7.8-10.44); Carbon Dioxide 29 mmol/L (23-31); Chloride 102 mmol/L (98-107); Glucose 171 mg/dL (83-110); Potassium 4.1 mmol/L (3.5-5.1); Sodium 139 mmol/L (136-145)
[2021-06-24] MEDS: Furosemide 40 MG/4 ML VIAL SLOW IVP SCH ×2 (06:05→14:13)
[2021-06-24] MEDS: Aspirin 81 mg Enteric Coated Tablet PO SCH (08:23)
[2021-06-24] MEDS: Carvedilol 25 MG TAB PO SCH ×2 (08:23→20:53)
[2021-06-24] MEDS ORDERED: FLU VACC QS2021-22(65YR UP)/PF 240 MCG/0.7 ML SYRINGE IM ONE (09:00)
[2021-06-24] MEDS ORDERED: HumaLOG 300 UNITS/3 ML VIAL SC PRN (12:36)
[2021-06-24] MEDS ORDERED: Dextrose 50% Abboject 50 ML SYRINGE SLOW IVP PRN (12:36)
[2021-06-24] MEDS ORDERED: Dextrose 5% in Water 1,000 ML IV PRN (12:36)
[2021-06-24] MEDS ORDERED: Nystatin Powder 15 GM BOT TOP PRN (12:58)
[2021-06-24] MEDS: cefTRIAXone\\ROCEPHIN 2 GM in Sodium Chloride 0.9% 100 ML IVPB SCH (14:13)
[2021-06-24] MEDS: HumaLOG 300 UNITS/3 ML VIAL SC PRN ×2 (14:14→18:47)
[2021-06-24 15:11] LABS: Bilirubin Negative (Negative); Blood, Urine 3+ (Negative); Clarity Turbid (Clear); Glucose, Urine (Dipstick) Normal (Negative); Ketone, Urine Negative (Negative); Leukocyte 500 Leu/uL (Negative); Nitrite Negative (Negative); Protein, Urine (Dipstick) 200 mg/dL (Neg-Trace); RBC/HPF 0-3 HPF (0-3); Specific Gravity, Urine 1.011 (1.002-1.036); Squamous Epithelial 0-3 HPF (0-3); Urobilinogen Normal mg/dL (Less than 2); pH, Urine 8.5 (5.0-9.0)
[2021-06-24 15:25] LABS: Bacteria/HPF 2+ HPF (None Seen); Triple Phosphate Crystal 1+ HPF (None Seen)
[2021-06-24] MEDS: glipiZIDE 5 MG TAB PO SCH (16:35)
[2021-06-24] MEDS: metFORMIN 500 MG TAB PO SCH (16:35)
[2021-06-24] MEDS: Famotidine/PF 20 mg/2ml Vial SLOW IVP SCH (20:53)
[2021-06-24] MEDS: Acetaminophen 325 MG TAB PO PRN (23:01)
[2021-06-25 05:14] LABS: Hemoglobin 8.8 g/dL (12.0-16.0); Platelet Count 283 thou/uL (130-400)
[2021-06-25 05:34] LABS: Anion Gap 12 mmol/L (10-20); BUN (Urea Nitrogen) 33 mg/dL (9.8-20.1); Calc. Creatinine Clearance 42 mL/min (70-130); Calcium 8.5 mg/dL (7.8-10.44); Carbon Dioxide 31 mmol/L (23-31); Chloride 100 mmol/L (98-107); Glucose 72 mg/dL (83-110); Potassium 3.7 mmol/L (3.5-5.1); Sodium 139 mmol/L (136-145)
[2021-06-25] MEDS: Furosemide 40 MG/4 ML VIAL SLOW IVP SCH ×2 (05:52→13:54)
[2021-06-25] MEDS: glipiZIDE 5 MG TAB PO SCH ×2 (09:02→16:35)
[2021-06-25] MEDS: Potassium Chloride 10 MEQ TAB PO SCH (09:02)
[2021-06-25] MEDS: Aspirin 81 mg Enteric Coated Tablet PO SCH (09:02)
[2021-06-25] MEDS: Carvedilol 25 MG TAB PO SCH ×2 (09:02→20:51)
[2021-06-25] MEDS: metFORMIN 500 MG TAB PO SCH ×2 (09:03→16:34)
[2021-06-25] MEDS: HumaLOG 300 UNITS/3 ML VIAL SC PRN (11:57)
[2021-06-25] MEDS: cefTRIAXone\\ROCEPHIN 2 GM in Sodium Chloride 0.9% 100 ML IVPB SCH (13:55)
[2021-06-25] MEDS: Acetaminophen 325 MG TAB PO PRN (20:51)
[2021-06-25] MEDS: Famotidine/PF 20 mg/2ml Vial SLOW IVP SCH (20:51)
[2021-06-26 05:52] LABS: Hemoglobin 8.7 g/dL (12.0-16.0)
[2021-06-26] MEDS: Furosemide 40 MG/4 ML VIAL SLOW IVP SCH (05:53)
[2021-06-26 06:10] LABS: Anion Gap 13 mmol/L (10-20); BUN (Urea Nitrogen) 32 mg/dL (9.8-20.1); Calc. Creatinine Clearance 40 mL/min (70-130); Calcium 8.4 mg/dL (7.8-10.44); Carbon Dioxide 30 mmol/L (23-31); Chloride 101 mmol/L (98-107); Glucose 122 mg/dL (83-110); Potassium 3.5 mmol/L (3.5-5.1); Sodium 140 mmol/L (136-145)
[2021-06-26 07:47] VITALS: TEMP 98.9
[2021-06-26] MEDS: metFORMIN 500 MG TAB PO SCH (08:49)
[2021-06-26] MEDS: glipiZIDE 5 MG TAB PO SCH (08:50)
[2021-06-26] MEDS: Potassium Chloride 10 MEQ TAB PO SCH (08:50)
[2021-06-26] MEDS: Carvedilol 25 MG TAB PO SCH (08:50)
[2021-06-26] MEDS: Aspirin 81 mg Enteric Coated Tablet PO SCH (08:50)
[2021-06-26 11:18] VITALS: BP 128/64
== END 2021-06-26 11:18 | disposition home or self-care (01) | DRG 291 ==
LOC: ERS 02:51 → ERHOLD 08:14 → 2SE 18:59
PROVIDERS: ADMIT Internal Medicine; ATTEND Family Medicine
DX: I13.0 Hypertensive heart and chronic kidney disease with heart failure and stage 1 through stage 4 chronic kidney disease, or unspecified chronic kidney disease (principal); I50.23 Acute on chronic systolic (congestive) heart failure; N39.0 Urinary tract infection, site not specified; N17.9 Acute kidney failure, unspecified; N18.30 Chronic kidney disease, stage 3 unspecified; E11.22 Type 2 diabetes mellitus with diabetic chronic kidney disease; I25.10 Atherosclerotic heart disease of native coronary artery without angina pectoris; E11.21 Type 2 diabetes mellitus with diabetic nephropathy; M16.10 Unilateral primary osteoarthritis, unspecified hip; M17.10 Unilateral primary osteoarthritis, unspecified knee; D64.9 Anemia, unspecified; B96.4 Proteus (mirabilis) (morganii) as the cause of diseases classified elsewhere; Z88.2 Allergy status to sulfonamides; Z79.82 Long term (current) use of aspirin; Z79.899 Other long term (current) drug therapy; Z95.1 Presence of aortocoronary bypass graft
CPT/HCPCS: 36415; 36416; 71045; 71046; 80048; 80053; 81003; 81015; 82553; 83880; 84484; 85014; 85018; 85025; 85049; 87077; 87086; 87186; 93005; 93306; J0696; J1940; J3490; S0028; U0002

== ENCOUNTER 2021-07-29 14:56 | Inpatient (IN) | payer MEDICARE ==
[2021-07-29 15:59] LABS: Hemoglobin 10.3 g/dL (12.0-16.0); Mean Corpuscular HGB CONC 29.4 g/dL (32.0-36.0); Mean Corpuscular Hemoglobin 24.8 pg (27.0-31.0); Mean Corpuscular Volume 84.1 fL (78.0-98.0); Mean Platelet Volume 9.2 fL (7.4-10.4); Platelet Count 324 thou/uL (130-400); Red Blood Cell (RBC) Count 4.14 mill/uL (4.20-5.40); White Blood Cell (WBC) Count 5.6 thou/uL (4.8-10.8)
[2021-07-29 16:05] LABS: #Eosinphils 0.2 thou/uL (0.0-0.7); #Lymphocytes 1.4 thou/uL (1.20-3.40); #Monocytes 0.4 thou/uL (0.11-0.59); #Neutrophils 3.5 thou/uL (1.40-6.50); %Basophils 0.7 % (0.0-1.0); %Eosinophils 4.4 % (0.0-10.0); %Lymphocytes 25.6 % (21.0-51.0); %Monocytes 6.5 % (0.0-10.0); %Neutrophils 62.8 % (42.0-75.0)
[2021-07-29 16:06] LABS: ALT (SGPT) 10 U/L (8-55); AST (SGOT) 18 U/L (5-34); Alkaline Phosphatase 111 U/L (40-110); Anion Gap 15 mmol/L (10-20); BUN (Urea Nitrogen) 26 mg/dL (9.8-20.1); Bilirubin, Total 0.8 mg/dL (0.2-1.2); Calc. Creatinine Clearance 0 mL/min (70-130); Calcium 9.1 mg/dL (7.8-10.44); Carbon Dioxide 28 mmol/L (23-31); Chloride 102 mmol/L (98-107); Glucose 220 mg/dL (83-110); Hypochromia SLIGHT = 6-15 cells (100X) (0-5/hpf); MDiff Complete? YES; Platelet Morphology Comment Appears Adequate; Potassium 4.8 mmol/L (3.5-5.1); Sodium 140 mmol/L (136-145)
[2021-07-29] MEDS ORDERED: Furosemide 100 MG/10 ML VIAL ONE (16:14)
[2021-07-29] MEDS ORDERED: Nitroglycerin 2% Ointment 1 INCH/1 GM Packet ONE (16:14)
[2021-07-29] MEDS ORDERED: Dextrose 50% Abboject 50 ML SYRINGE SLOW IVP PRN (17:07)
[2021-07-29] MEDS ORDERED: Dextrose 5% in Water 1,000 ML IV PRN (17:07)
[2021-07-29 17:13] LABS: CKMB 1.2 ng/mL (0-6.6)
[2021-07-29] MEDS ORDERED: Electrolyte Replacement Protocol 1 EACH FS SCH (18:45)
[2021-07-29 19:14] LABS: Magnesium 1.9 mg/dL (1.6-2.6)
[2021-07-29 20:15] LABS: Troponin I 0.036 ng/mL (< 0.028)
[2021-07-29] MEDS ORDERED: Magnesium 2 GM/50 ML 2 GM in Premix Bag 1 BAG IVPB SCH (21:00)
[2021-07-29] MEDS: Carvedilol 25 MG TAB PO SCH (21:03)
[2021-07-29 23:13] LABS: Troponin I 0.043 ng/mL (< 0.028)
[2021-07-29 23:46] LABS: SARS-CoV-2 PCR by NAA Not Detected (NotDetected)
[2021-07-30 00:40] LABS: Magnesium 2.1 mg/dL (1.6-2.6); Potassium 4.1 mmol/L (3.5-5.1)
[2021-07-30] MEDS: Furosemide 40 MG/4 ML VIAL SLOW IVP SCH ×2 (04:48→14:25)
[2021-07-30 04:54] LABS: Hemoglobin A1c 7.4 % (4.0-6.0)
[2021-07-30 05:11] LABS: #Eosinphils 0.2 thou/uL (0.0-0.7); #Lymphocytes 1.2 thou/uL (1.20-3.40); #Monocytes 0.5 thou/uL (0.11-0.59); #Neutrophils 3.1 thou/uL (1.40-6.50); %Basophils 0.4 % (0.0-1.0); %Eosinophils 4.9 % (0.0-10.0); %Lymphocytes 24.2 % (21.0-51.0); %Monocytes 9.6 % (0.0-10.0); Hemoglobin 9.2 g/dL (12.0-16.0); Mean Corpuscular HGB CONC 29.2 g/dL (32.0-36.0); Mean Corpuscular Hemoglobin 24.4 pg (27.0-31.0); Mean Corpuscular Volume 83.5 fL (78.0-98.0); Mean Platelet Volume 9.1 fL (7.4-10.4); Platelet Count 284 thou/uL (130-400); RBC Distribution Width 17.9 % (11.5-14.5); Red Blood Cell (RBC) Count 3.78 mill/uL (4.20-5.40)
[2021-07-30 05:12] LABS: Anion Gap 15 mmol/L (10-20); BUN (Urea Nitrogen) 28 mg/dL (9.8-20.1); Calc. Creatinine Clearance 47 mL/min (70-130); Carbon Dioxide 27 mmol/L (23-31); Chloride 103 mmol/L (98-107); Glucose 160 mg/dL (83-110); Potassium 4.6 mmol/L (3.5-5.1); Sodium 140 mmol/L (136-145)
[2021-07-30] MEDS ORDERED: Magnesium 2 GM/50 ML 2 GM in Premix Bag 1 BAG IVPB SCH (05:30)
[2021-07-30] MEDS ORDERED: Nitroglycerin 0.4 MG TAB (25 Tab Bottle) SL PRN (05:36)
[2021-07-30] MEDS ORDERED: Hydrocerin (Eucerin) Cream 120 gm Jar TOP PRN (05:37)
[2021-07-30] MEDS ORDERED: Loperamide HCl 2 MG CAP PO PRN (05:37)
[2021-07-30] MEDS ORDERED: Benzonatate 100 MG CAP PO PRN (05:37)
[2021-07-30] MEDS ORDERED: Senokot S 8.6-50 MG TAB PO PRN (05:37)
[2021-07-30] MEDS ORDERED: Sodium Chloride 0.65% Nasal 44 ML BOT EA NARE PRN (05:37)
[2021-07-30] MEDS ORDERED: Ondansetron PF 4 MG/2 ML Vial IVP PRN (05:37)
[2021-07-30] MEDS ORDERED: GUAIFENESIN SF SOLN 200 MG/10 ML UDCUP PO PRN (05:37)
[2021-07-30] MEDS ORDERED: Artificial Tear Sol 15 ML BOT EA EYE PRN (05:37)
[2021-07-30] MEDS ORDERED: Bisacodyl 5 MG TAB PO PRN (05:37)
[2021-07-30] MEDS ORDERED: Ondansetron ODT 4 MG TAB PO PRN (05:37)
[2021-07-30] MEDS ORDERED: Cepastat Lozenges 1 LOZ PO PRN (05:37)
[2021-07-30] MEDS ORDERED: Calcium Carbonate 500 MG ChewTAB PO PRN (05:37)
[2021-07-30] MEDS ORDERED: hydrALAZINE 20 MG/ML VIAL SLOW IVP PRN (05:37)
[2021-07-30] MEDS ORDERED: Loratadine 10 MG TAB PO PRN (05:37)
[2021-07-30] MEDS ORDERED: Melatonin 3 MG TAB PO PRN (05:40)
[2021-07-30] MEDS: HumaLOG 300 UNITS/3 ML VIAL SC PRN (06:27)
[2021-07-30] MEDS: Famotidine 20 MG TAB PO SCH (08:24)
[2021-07-30] MEDS: Carvedilol 25 MG TAB PO SCH ×2 (08:24→21:15)
[2021-07-30] MEDS: Aspirin 81 mg Enteric Coated Tablet PO SCH (08:24)
[2021-07-30] MEDS: Enoxaparin Sodium 40 MG/0.4 ML SYRINGE SC SCH (08:24)
[2021-07-30] MEDS: glipiZIDE 5 MG TAB PO SCH (08:24)
[2021-07-30] MEDS: Multivitamin W/ Minerals 1 TAB PO SCH (09:13)
[2021-07-31] MEDS: Furosemide 40 MG/4 ML VIAL SLOW IVP SCH ×2 (05:43→15:04)
[2021-07-31] MEDS: HumaLOG 300 UNITS/3 ML VIAL SC PRN (06:11)
[2021-07-31 06:34] LABS: Hemoglobin 9.7 g/dL (12.0-16.0); Mean Corpuscular HGB CONC 29.6 g/dL (32.0-36.0); Mean Corpuscular Hemoglobin 24.6 pg (27.0-31.0); Mean Corpuscular Volume 83.2 fL (78.0-98.0); Mean Platelet Volume 9.3 fL (7.4-10.4); Platelet Count 289 thou/uL (130-400); Red Blood Cell (RBC) Count 3.95 mill/uL (4.20-5.40); White Blood Cell (WBC) Count 5.2 thou/uL (4.8-10.8)
[2021-07-31 06:36] LABS: ALT (SGPT) 9 U/L (8-55); AST (SGOT) 18 U/L (5-34); Alkaline Phosphatase 101 U/L (40-110); Bilirubin, Direct 0.3 mg/dL (0.1-0.3); Bilirubin, Total 0.6 mg/dL (0.2-1.2)
[2021-07-31 06:37] LABS: Anion Gap 14 mmol/L (10-20); BUN (Urea Nitrogen) 33 mg/dL (9.8-20.1); Calc. Creatinine Clearance 46 mL/min (70-130); Carbon Dioxide 29 mmol/L (23-31); Chloride 101 mmol/L (98-107); Glucose 166 mg/dL (83-110); Magnesium 2.3 mg/dL (1.6-2.6); Potassium 5.2 mmol/L (3.5-5.1); Sodium 139 mmol/L (136-145)
[2021-07-31 06:40] LABS: #Eosinphils 0.2 thou/uL (0.0-0.7); #Lymphocytes 1.1 thou/uL (1.20-3.40); #Monocytes 0.4 thou/uL (0.11-0.59); #Neutrophils 3.4 thou/uL (1.40-6.50); %Basophils 0.3 % (0.0-1.0); %Eosinophils 4.4 % (0.0-10.0); %Lymphocytes 21.4 % (21.0-51.0); %Monocytes 7.3 % (0.0-10.0); %Neutrophils 66.7 % (42.0-75.0); Hypochromia SLIGHT = 6-15 cells (100X) (0-5/hpf); MDiff Complete? YES; Platelet Morphology Comment Appears Adequate; Target Cells SLIGHT = 2-5 cells (100X) (0-1/hpf)
[2021-07-31] MEDS: Enoxaparin Sodium 40 MG/0.4 ML SYRINGE SC SCH (09:14)
[2021-07-31] MEDS: Multivitamin W/ Minerals 1 TAB PO SCH (09:15)
[2021-07-31] MEDS: Famotidine 20 MG TAB PO SCH (09:15)
[2021-07-31] MEDS: glipiZIDE 5 MG TAB PO SCH (09:16)
[2021-07-31] MEDS: Aspirin 81 mg Enteric Coated Tablet PO SCH (09:16)
[2021-07-31] MEDS: Ferrous Sulfate 325 MG TAB PO SCH (09:16)
[2021-07-31] MEDS: Carvedilol 25 MG TAB PO SCH ×3 (09:19→19:50)
[2021-07-31] MEDS: HYDROcodone/Acetaminophen 5/325 mg Tablet PO PRN (10:29)
[2021-07-31 19:43] VITALS: BMI 31.3
[2021-08-01 05:15] LABS: #Basophils 0.1 thou/uL (0.0-0.2); #Eosinphils 0.2 thou/uL (0.0-0.7); #Monocytes 0.4 thou/uL (0.11-0.59); %Basophils 1.3 % (0.0-1.0); %Eosinophils 4.3 % (0.0-10.0); %Lymphocytes 20.9 % (21.0-51.0); %Monocytes 8.5 % (0.0-10.0); Hemoglobin 9.3 g/dL (12.0-16.0); Mean Corpuscular HGB CONC 29.4 g/dL (32.0-36.0); Mean Corpuscular Hemoglobin 24.6 pg (27.0-31.0); Mean Corpuscular Volume 83.9 fL (78.0-98.0); Mean Platelet Volume 9.1 fL (7.4-10.4); Platelet Count 282 thou/uL (130-400); RBC Distribution Width 17.8 % (11.5-14.5); Red Blood Cell (RBC) Count 3.79 mill/uL (4.20-5.40); White Blood Cell (WBC) Count 4.6 thou/uL (4.8-10.8)
[2021-08-01] MEDS: Furosemide 40 MG/4 ML VIAL SLOW IVP SCH ×2 (05:19→15:46)
[2021-08-01 05:27] LABS: Anion Gap 15 mmol/L (10-20); BUN (Urea Nitrogen) 31 mg/dL (9.8-20.1); Calc. Creatinine Clearance 42 mL/min (70-130); Calcium 8.6 mg/dL (7.8-10.44); Carbon Dioxide 27 mmol/L (23-31); Chloride 99 mmol/L (98-107); Glucose 146 mg/dL (83-110); Potassium 3.9 mmol/L (3.5-5.1); Sodium 137 mmol/L (136-145)
[2021-08-01 07:14] LABS: Magnesium 2.1 mg/dL (1.6-2.6); Phosphorus 3.5 mg/dL (2.3-4.7)
[2021-08-01] MEDS ORDERED: Magnesium Oxide 400 MG TAB PO SCH (09:15)
[2021-08-01] MEDS ORDERED: Metolazone 5 MG TAB PO SCH (09:15)
[2021-08-01] MEDS ORDERED: Potassium Chloride 20 MEQ TAB PO SCH (09:15)
[2021-08-01] MEDS: Ferrous Sulfate 325 MG TAB PO SCH (09:49)
[2021-08-01] MEDS: glipiZIDE 5 MG TAB PO SCH (09:49)
[2021-08-01] MEDS: Enoxaparin Sodium 40 MG/0.4 ML SYRINGE SC SCH (09:50)
[2021-08-01] MEDS: Multivitamin W/ Minerals 1 TAB PO SCH (09:50)
[2021-08-01] MEDS: Carvedilol 25 MG TAB PO SCH ×2 (09:50→20:59)
[2021-08-01] MEDS: Famotidine 20 MG TAB PO SCH (09:50)
[2021-08-01] MEDS: Aspirin 81 mg Enteric Coated Tablet PO SCH (09:50)
[2021-08-01] MEDS: HYDROcodone/Acetaminophen 5/325 mg Tablet PO PRN (17:04)
[2021-08-02 05:53] LABS: #Eosinphils 0.2 thou/uL (0.0-0.7); #Lymphocytes 1.1 thou/uL (1.20-3.40); #Monocytes 0.5 thou/uL (0.11-0.59); #Neutrophils 3.2 thou/uL (1.40-6.50); %Basophils 0.9 % (0.0-1.0); %Eosinophils 3.1 % (0.0-10.0); %Lymphocytes 22.1 % (21.0-51.0); %Monocytes 9.5 % (0.0-10.0); %Neutrophils 64.4 % (42.0-75.0); Hemoglobin 8.6 g/dL (12.0-16.0); Mean Corpuscular HGB CONC 29.6 g/dL (32.0-36.0); Mean Corpuscular Hemoglobin 24.5 pg (27.0-31.0); Mean Corpuscular Volume 82.7 fL (78.0-98.0); Mean Platelet Volume 8.6 fL (7.4-10.4); Platelet Count 276 thou/uL (130-400); Red Blood Cell (RBC) Count 3.53 mill/uL (4.20-5.40)
[2021-08-02 06:41] LABS: Anion Gap 13 mmol/L (10-20); BUN (Urea Nitrogen) 31 mg/dL (9.8-20.1); Calc. Creatinine Clearance 42 mL/min (70-130); Calcium 8.8 mg/dL (7.8-10.44); Carbon Dioxide 32 mmol/L (23-31); Chloride 98 mmol/L (98-107); Glucose 136 mg/dL (83-110); Potassium 3.7 mmol/L (3.5-5.1); Sodium 139 mmol/L (136-145)
[2021-08-02] MEDS: Furosemide 40 MG/4 ML VIAL SLOW IVP SCH ×2 (07:36→14:24)
[2021-08-02] MEDS: glipiZIDE 5 MG TAB PO SCH (09:33)
[2021-08-02] MEDS: Aspirin 81 mg Enteric Coated Tablet PO SCH (09:33)
[2021-08-02] MEDS: Enoxaparin Sodium 40 MG/0.4 ML SYRINGE SC SCH (09:33)
[2021-08-02] MEDS: Ferrous Sulfate 325 MG TAB PO SCH (09:33)
[2021-08-02] MEDS: Metolazone 5 MG TAB PO SCH (09:33)
[2021-08-02] MEDS: Magnesium Oxide 400 MG TAB PO SCH (09:34)
[2021-08-02] MEDS: Potassium Chloride 20 MEQ TAB PO SCH (09:34)
[2021-08-02] MEDS: Carvedilol 25 MG TAB PO SCH ×2 (09:34→21:54)
[2021-08-02] MEDS: Famotidine 20 MG TAB PO SCH (09:34)
[2021-08-02] MEDS: Multivitamin W/ Minerals 1 TAB PO SCH (09:34)
[2021-08-02] MEDS: HYDROcodone/Acetaminophen 5/325 mg Tablet PO PRN ×2 (09:39→16:34)
[2021-08-02] MEDS: HumaLOG 300 UNITS/3 ML VIAL SC PRN (11:38)
[2021-08-03 05:33] LABS: #Eosinphils 0.2 thou/uL (0.0-0.7); #Lymphocytes 1.1 thou/uL (1.20-3.40); #Monocytes 0.6 thou/uL (0.11-0.59); #Neutrophils 3.1 thou/uL (1.40-6.50); %Basophils 0.6 % (0.0-1.0); %Eosinophils 3.9 % (0.0-10.0); %Lymphocytes 21.9 % (21.0-51.0); %Monocytes 11.5 % (0.0-10.0); %Neutrophils 62.2 % (42.0-75.0); Hemoglobin 8.8 g/dL (12.0-16.0); Mean Corpuscular HGB CONC 29.6 g/dL (32.0-36.0); Mean Corpuscular Hemoglobin 24.4 pg (27.0-31.0); Mean Corpuscular Volume 82.3 fL (78.0-98.0); Mean Platelet Volume 9.1 fL (7.4-10.4); Platelet Count 293 thou/uL (130-400); RBC Distribution Width 18.3 % (11.5-14.5); Red Blood Cell (RBC) Count 3.61 mill/uL (4.20-5.40)
[2021-08-03 05:50] LABS: Anion Gap 12 mmol/L (10-20); BUN (Urea Nitrogen) 32 mg/dL (9.8-20.1); Calc. Creatinine Clearance 41 mL/min (70-130); Calcium 8.8 mg/dL (7.8-10.44); Carbon Dioxide 35 mmol/L (23-31); Chloride 96 mmol/L (98-107); Glucose 131 mg/dL (83-110); Sodium 139 mmol/L (136-145)
[2021-08-03] MEDS: Furosemide 40 MG/4 ML VIAL SLOW IVP SCH (06:13)
[2021-08-03] MEDS: Ferrous Sulfate 325 MG TAB PO SCH (08:45)
[2021-08-03] MEDS: Aspirin 81 mg Enteric Coated Tablet PO SCH (08:45)
[2021-08-03] MEDS: glipiZIDE 5 MG TAB PO SCH (08:45)
[2021-08-03] MEDS: Magnesium Oxide 400 MG TAB PO SCH (08:45)
[2021-08-03] MEDS: Multivitamin W/ Minerals 1 TAB PO SCH (08:46)
[2021-08-03] MEDS: Carvedilol 25 MG TAB PO SCH ×2 (08:46→21:00)
[2021-08-03] MEDS: Enoxaparin Sodium 40 MG/0.4 ML SYRINGE SC SCH (08:46)
[2021-08-03] MEDS: Famotidine 20 MG TAB PO SCH (08:46)
[2021-08-03] MEDS: Potassium Chloride 20 MEQ TAB PO SCH (08:46)
[2021-08-03] MEDS: Metolazone 5 MG TAB PO SCH (08:47)
[2021-08-03] MEDS ORDERED: hydrALAZINE 10 MG TAB PO SCH (09:00)
[2021-08-03] MEDS: hydrALAZINE 25 MG TAB PO SCH ×4 (09:20→21:00)
[2021-08-03] MEDS: HYDROcodone/Acetaminophen 5/325 mg Tablet PO PRN (18:24)
[2021-08-04] MEDS: HYDROcodone/Acetaminophen 5/325 mg Tablet PO PRN (06:14)
[2021-08-04] MEDS: Ferrous Sulfate 325 MG TAB PO SCH (09:04)
[2021-08-04] MEDS: Multivitamin W/ Minerals 1 TAB PO SCH (09:04)
[2021-08-04] MEDS: Potassium Chloride 20 MEQ TAB PO SCH (09:04)
[2021-08-04] MEDS: glipiZIDE 5 MG TAB PO SCH (09:04)
[2021-08-04] MEDS: Famotidine 20 MG TAB PO SCH (09:04)
[2021-08-04] MEDS: hydrALAZINE 25 MG TAB PO SCH ×2 (09:04→12:24)
[2021-08-04] MEDS: Aspirin 81 mg Enteric Coated Tablet PO SCH (09:04)
[2021-08-04] MEDS: Magnesium Oxide 400 MG TAB PO SCH (09:04)
[2021-08-04] MEDS: Enoxaparin Sodium 40 MG/0.4 ML SYRINGE SC SCH (09:05)
[2021-08-04] MEDS: Carvedilol 25 MG TAB PO SCH (09:05)
[2021-08-04 16:24] VITALS: BP 136/70; TEMP 97.2
[2021-08-05] MEDS ORDERED: Enoxaparin Sodium 30 MG/0.3 ML SYRINGE SC SCH (09:00)
== END 2021-08-04 16:05 | disposition home health service (06) | DRG 280 ==
LOC: ERS 14:56 → 2NO 16:23
PROVIDERS: ADMIT Internal Medicine; ATTEND Internal Medicine
DX: I13.0 Hypertensive heart and chronic kidney disease with heart failure and stage 1 through stage 4 chronic kidney disease, or unspecified chronic kidney disease (principal); J96.21 Acute and chronic respiratory failure with hypoxia; I21.A1 Myocardial infarction type 2; I50.43 Acute on chronic combined systolic (congestive) and diastolic (congestive) heart failure; N17.9 Acute kidney failure, unspecified; I25.10 Atherosclerotic heart disease of native coronary artery without angina pectoris; I25.5 Ischemic cardiomyopathy; E66.9 Obesity, unspecified; E11.22 Type 2 diabetes mellitus with diabetic chronic kidney disease; E78.5 Hyperlipidemia, unspecified; E78.00 Pure hypercholesterolemia, unspecified; M19.90 Unspecified osteoarthritis, unspecified site; D63.1 Anemia in chronic kidney disease; Z88.2 Allergy status to sulfonamides; Z79.84 Long term (current) use of oral hypoglycemic drugs; Z79.82 Long term (current) use of aspirin; Z79.899 Other long term (current) drug therapy; Z95.1 Presence of aortocoronary bypass graft; Z90.710 Acquired absence of both cervix and uterus; Z68.29 Body mass index [BMI] 29.0-29.9, adult
CPT/HCPCS: 36415; 36416; 71045; 80048; 80053; 80061; 80076; 82306; 82553; 83036; 83540; 83735; 83880; 84100; 84132; 84439; 84443; 84484; 85025; 93005; 93306; 96374; J1650; J1815; J1940; J3475; U0003; U0005

== ENCOUNTER 2021-12-17 15:58 | Inpatient (IN) | payer MEDICARE ==
[2021-12-17 16:28] LABS: #Eosinphils 0.1 thou/uL (0.0-0.7); #Monocytes 0.6 thou/uL (0.11-0.59); #Neutrophils 5.5 thou/uL (1.40-6.50); %Basophils 0.2 % (0.0-1.0); %Eosinophils 1.6 % (0.0-10.0); %Lymphocytes 13.5 % (21.0-51.0); %Monocytes 8.1 % (0.0-10.0); %Neutrophils 76.6 % (42.0-75.0); Hemoglobin 7.5 g/dL (12.0-16.0); Mean Corpuscular HGB CONC 30.7 g/dL (32.0-36.0); Mean Corpuscular Hemoglobin 26.1 pg (27.0-31.0); Mean Corpuscular Volume 85.2 fL (78.0-98.0); Mean Platelet Volume 8.4 fL (7.4-10.4); Platelet Count 211 thou/uL (130-400); Red Blood Cell (RBC) Count 2.88 mill/uL (4.20-5.40); White Blood Cell (WBC) Count 7.1 thou/uL (4.8-10.8)
[2021-12-17 16:45] LABS: INR-International Normal Ratio 1.5; Prothrombin Time 17.9 sec (12.0-14.7)
[2021-12-17 16:46] LABS: PTT 33.1 sec (22.9-36.1)
[2021-12-17 16:49] LABS: ALT (SGPT) 9 U/L (8-55); AST (SGOT) 22 U/L (5-34); Albumin 2.7 g/dL (3.4-4.8); Alkaline Phosphatase 90 U/L (40-110); Anion Gap 13 mmol/L (10-20); BUN (Urea Nitrogen) 36 mg/dL (9.8-20.1); Bilirubin, Total 1.2 mg/dL (0.2-1.2); Calc. Creatinine Clearance 0 mL/min (70-130); Calcium 7.9 mg/dL (7.8-10.44); Carbon Dioxide 22 mmol/L (23-31); Chloride 110 mmol/L (98-107); Glucose 128 mg/dL (83-110); Potassium 3.9 mmol/L (3.5-5.1); Protein, Total 5.7 g/dL (5.8-8.1); Sodium 141 mmol/L (136-145)
[2021-12-17 18:15] LABS: CKMB 1.9 ng/mL (0-6.6)
[2021-12-17 19:20] VITALS: BMI 31.6
[2021-12-17] MEDS ORDERED: Ondansetron PF 4 MG/2 ML Vial IVP PRN (19:41)
[2021-12-17] MEDS ORDERED: Sodium Chloride 0.9% 1,000 ML IV SCH (19:41)
[2021-12-17] MEDS ORDERED: Dextrose 5% in Water 1,000 ML IV PRN (19:41)
[2021-12-17] MEDS ORDERED: Insulin Regular 300 UNITS/3 ML VIAL SC PRN (19:41)
[2021-12-17] MEDS ORDERED: Dextrose 50% Abboject 50 ML SYRINGE SLOW IVP PRN (19:41)
[2021-12-17 20:34] LABS: Troponin I 0.052 ng/mL (< 0.028)
[2021-12-17 20:52] LABS: SARS-CoV-2 NAA Rapid Test Not Detected (NotDetected)
[2021-12-17] MEDS: Pantoprazole 40 MG VIAL IVP SCH (21:00)
[2021-12-17 23:15] LABS: Hemoglobin 7.4 g/dL (12.0-16.0)
[2021-12-18 03:53] LABS: #Eosinphils 0.2 thou/uL (0.0-0.7); #Lymphocytes 1.3 thou/uL (1.20-3.40); #Monocytes 0.6 thou/uL (0.11-0.59); #Neutrophils 5.1 thou/uL (1.40-6.50); %Basophils 0.4 % (0.0-1.0); %Eosinophils 2.9 % (0.0-10.0); %Lymphocytes 17.7 % (21.0-51.0); %Monocytes 8.2 % (0.0-10.0); %Neutrophils 70.8 % (42.0-75.0); Hemoglobin 7.6 g/dL (12.0-16.0); Mean Corpuscular Hemoglobin 28.6 pg (27.0-31.0); Mean Corpuscular Volume 86.8 fL (78.0-98.0); Mean Platelet Volume 8.7 fL (7.4-10.4); Platelet Count 178 thou/uL (130-400); RBC Distribution Width 17.6 % (11.5-14.5); Red Blood Cell (RBC) Count 2.65 mill/uL (4.20-5.40); White Blood Cell (WBC) Count 7.2 thou/uL (4.8-10.8)
[2021-12-18 04:20] LABS: Hemoglobin A1c 5.4 % (4.0-6.0)
[2021-12-18 04:24] LABS: Anion Gap 12 mmol/L (10-20); BUN (Urea Nitrogen) 33 mg/dL (9.8-20.1); Calc. Creatinine Clearance 53 mL/min (70-130); Calcium 7.8 mg/dL (7.8-10.44); Carbon Dioxide 22 mmol/L (23-31); Chloride 113 mmol/L (98-107); Glucose 78 mg/dL (83-110); Sodium 143 mmol/L (136-145)
[2021-12-18 08:07] LABS: Troponin I 0.051 ng/mL (< 0.028)
[2021-12-18] MEDS: Carvedilol 6.25 MG TAB PO SCH ×2 (09:37→17:04)
[2021-12-18] MEDS: Pantoprazole 40 MG VIAL IVP SCH ×2 (09:38→20:18)
[2021-12-18] MEDS ORDERED: Dextrose 50% Abboject 50 ML SYRINGE ONE (13:18)
[2021-12-18] MEDS: Furosemide 20 MG/2 ML VIAL SLOW IVP SCH (13:26)
[2021-12-18] MEDS ORDERED: GoLYTELY 4,000 ml Bottle PO SCH (17:00)
[2021-12-18 17:51] LABS: Hemoglobin 6.8 g/dL (12.0-16.0)
[2021-12-19 05:01] LABS: #Eosinphils 0.2 thou/uL (0.0-0.7); #Lymphocytes 1.3 thou/uL (1.20-3.40); #Monocytes 0.5 thou/uL (0.11-0.59); #Neutrophils 4.3 thou/uL (1.40-6.50); %Basophils 0.3 % (0.0-1.0); %Eosinophils 3.2 % (0.0-10.0); %Lymphocytes 20.7 % (21.0-51.0); %Monocytes 8.4 % (0.0-10.0); %Neutrophils 67.4 % (42.0-75.0); Hemoglobin 7.9 g/dL (12.0-16.0); Mean Corpuscular HGB CONC 31.4 g/dL (32.0-36.0); Mean Corpuscular Hemoglobin 27.7 pg (27.0-31.0); Mean Corpuscular Volume 88.1 fL (78.0-98.0); Mean Platelet Volume 8.6 fL (7.4-10.4); Platelet Count 192 thou/uL (130-400); RBC Distribution Width 16.7 % (11.5-14.5); Red Blood Cell (RBC) Count 2.84 mill/uL (4.20-5.40); White Blood Cell (WBC) Count 6.3 thou/uL (4.8-10.8)
[2021-12-19 05:25] LABS: Anion Gap 13 mmol/L (10-20); BUN (Urea Nitrogen) 30 mg/dL (9.8-20.1); Calc. Creatinine Clearance 51 mL/min (70-130); Calcium 7.7 mg/dL (7.8-10.44); Carbon Dioxide 22 mmol/L (23-31); Chloride 113 mmol/L (98-107); Glucose 89 mg/dL (83-110); Potassium 4.1 mmol/L (3.5-5.1); Sodium 144 mmol/L (136-145)
[2021-12-19] MEDS: Furosemide 20 MG/2 ML VIAL SLOW IVP SCH ×2 (06:48→15:51)
[2021-12-19] MEDS: Carvedilol 6.25 MG TAB PO SCH ×2 (09:39→15:52)
[2021-12-19] MEDS: Pantoprazole 40 MG VIAL IVP SCH ×2 (09:39→20:50)
[2021-12-20] MEDS: Furosemide 20 MG/2 ML VIAL SLOW IVP SCH ×2 (04:59→14:53)
[2021-12-20 05:30] LABS: Anion Gap 12 mmol/L (10-20); BUN (Urea Nitrogen) 26 mg/dL (9.8-20.1); Calc. Creatinine Clearance 48 mL/min (70-130); Calcium 7.8 mg/dL (7.8-10.44); Carbon Dioxide 24 mmol/L (23-31); Chloride 110 mmol/L (98-107); Glucose 79 mg/dL (83-110); Potassium 3.7 mmol/L (3.5-5.1); Sodium 142 mmol/L (136-145)
[2021-12-20 05:38] LABS: #Eosinphils 0.2 thou/uL (0.0-0.7); #Lymphocytes 1.2 thou/uL (1.20-3.40); #Monocytes 0.5 thou/uL (0.11-0.59); #Neutrophils 3.6 thou/uL (1.40-6.50); %Basophils 0.6 % (0.0-1.0); %Eosinophils 4.4 % (0.0-10.0); %Lymphocytes 21.9 % (21.0-51.0); %Monocytes 9.1 % (0.0-10.0); %Neutrophils 64.1 % (42.0-75.0); Hemoglobin 7.2 g/dL (12.0-16.0); Mean Corpuscular HGB CONC 29.8 g/dL (32.0-36.0); Mean Corpuscular Hemoglobin 26.2 pg (27.0-31.0); Mean Platelet Volume 8.6 fL (7.4-10.4); Platelet Count 212 thou/uL (130-400); RBC Distribution Width 17.2 % (11.5-14.5); Red Blood Cell (RBC) Count 2.76 mill/uL (4.20-5.40); White Blood Cell (WBC) Count 5.5 thou/uL (4.8-10.8)
[2021-12-20] MEDS: Carvedilol 6.25 MG TAB PO SCH ×2 (08:07→17:24)
[2021-12-20] MEDS: Pantoprazole 40 MG VIAL IVP SCH ×2 (08:08→20:47)
[2021-12-20] MEDS ORDERED: Fentanyl 100 MCG/2 ML VIAL ONE (09:35)
[2021-12-20] MEDS ORDERED: Ketamine 50 MG/ML (10ML VIAL) ONE (09:42)
[2021-12-20] MEDS ORDERED: PROPOFOL 200 MG/20 ML VIAL ONE (09:52)
[2021-12-20] MEDS ORDERED: Lidocaine 1% (PF) 30 ML VIAL ONE (10:35)
[2021-12-21 03:48] LABS: #Eosinphils 0.2 thou/uL (0.0-0.7); #Lymphocytes 1.1 thou/uL (1.20-3.40); #Monocytes 0.5 thou/uL (0.11-0.59); #Neutrophils 4.2 thou/uL (1.40-6.50); %Eosinophils 2.7 % (0.0-10.0); %Lymphocytes 18.1 % (21.0-51.0); %Monocytes 8.6 % (0.0-10.0); %Neutrophils 70.7 % (42.0-75.0); Hemoglobin 7.5 g/dL (12.0-16.0); Mean Corpuscular HGB CONC 30.9 g/dL (32.0-36.0); Mean Corpuscular Hemoglobin 27.1 pg (27.0-31.0); Mean Corpuscular Volume 87.9 fL (78.0-98.0); Mean Platelet Volume 8.4 fL (7.4-10.4); Platelet Count 231 thou/uL (130-400); RBC Distribution Width 17.3 % (11.5-14.5); Red Blood Cell (RBC) Count 2.76 mill/uL (4.20-5.40)
[2021-12-21] MEDS: Furosemide 20 MG/2 ML VIAL SLOW IVP SCH ×2 (05:46→16:07)
[2021-12-21 08:24] LABS: Anion Gap 12 mmol/L (10-20); BUN (Urea Nitrogen) 22 mg/dL (9.8-20.1); Calc. Creatinine Clearance 40 mL/min (70-130); Calcium 7.9 mg/dL (7.8-10.44); Carbon Dioxide 25 mmol/L (23-31); Chloride 107 mmol/L (98-107); Glucose 128 mg/dL (83-110); Potassium 3.5 mmol/L (3.5-5.1); Sodium 140 mmol/L (136-145)
[2021-12-21] MEDS: Carvedilol 6.25 MG TAB PO SCH ×2 (08:53→17:58)
[2021-12-21] MEDS: Pantoprazole 40 MG VIAL IVP SCH (08:54)
[2021-12-22 03:59] LABS: #Eosinphils 0.1 thou/uL (0.0-0.7); #Lymphocytes 0.9 thou/uL (1.20-3.40); #Monocytes 0.4 thou/uL (0.11-0.59); #Neutrophils 4.7 thou/uL (1.40-6.50); %Basophils 0.3 % (0.0-1.0); %Eosinophils 1.9 % (0.0-10.0); %Lymphocytes 15.1 % (21.0-51.0); %Monocytes 6.9 % (0.0-10.0); %Neutrophils 75.9 % (42.0-75.0); Hemoglobin 8.1 g/dL (12.0-16.0); Mean Corpuscular HGB CONC 29.1 g/dL (32.0-36.0); Mean Corpuscular Hemoglobin 26.3 pg (27.0-31.0); Mean Corpuscular Volume 90.2 fL (78.0-98.0); Mean Platelet Volume 8.5 fL (7.4-10.4); Platelet Count 254 thou/uL (130-400); RBC Distribution Width 17.3 % (11.5-14.5); Red Blood Cell (RBC) Count 3.07 mill/uL (4.20-5.40); White Blood Cell (WBC) Count 6.2 thou/uL (4.8-10.8)
[2021-12-22] MEDS: Furosemide 20 MG/2 ML VIAL SLOW IVP SCH (06:12)
[2021-12-22] MEDS: Carvedilol 6.25 MG TAB PO SCH (09:08)
[2021-12-22 09:09] VITALS: BP 138/85
[2021-12-22 10:41] VITALS: TEMP 97.8
== END 2021-12-22 11:55 | disposition home or self-care (01) | DRG 377 ==
LOC: ERS 15:58 → IMCU/EMU 17:46 → 2NO 12-19 20:13
PROVIDERS: ADMIT Internal Medicine; ATTEND Hospitalist
PROC: 30233N1 Transfusion of Nonautologous Red Blood Cells into Peripheral Vein, Percutaneous Approach (ICD-10-PCS; 2021-12-17)
PROC: 0DJ08ZZ Inspection of Upper Intestinal Tract, Via Natural or Artificial Opening Endoscopic (ICD-10-PCS; principal; 2021-12-20)
PROC: 0DJD8ZZ Inspection of Lower Intestinal Tract, Via Natural or Artificial Opening Endoscopic (ICD-10-PCS; 2021-12-20)
DX: K55.21 Angiodysplasia of colon with hemorrhage (principal); J96.20 Acute and chronic respiratory failure, unspecified whether with hypoxia or hypercapnia; I50.43 Acute on chronic combined systolic (congestive) and diastolic (congestive) heart failure; I25.810 Atherosclerosis of coronary artery bypass graft(s) without angina pectoris; N17.9 Acute kidney failure, unspecified; D62 Acute posthemorrhagic anemia; I13.0 Hypertensive heart and chronic kidney disease with heart failure and stage 1 through stage 4 chronic kidney disease, or unspecified chronic kidney disease; E78.5 Hyperlipidemia, unspecified; E78.00 Pure hypercholesterolemia, unspecified; M19.90 Unspecified osteoarthritis, unspecified site; I25.10 Atherosclerotic heart disease of native coronary artery without angina pectoris; J44.9 Chronic obstructive pulmonary disease, unspecified; E66.9 Obesity, unspecified; N18.9 Chronic kidney disease, unspecified; E11.22 Type 2 diabetes mellitus with diabetic chronic kidney disease; Z20.822 Contact with and (suspected) exposure to COVID-19; K57.90 Diverticulosis of intestine, part unspecified, without perforation or abscess without bleeding; Z95.1 Presence of aortocoronary bypass graft; Z79.82 Long term (current) use of aspirin; Z90.710 Acquired absence of both cervix and uterus; Z88.2 Allergy status to sulfonamides; Z99.81 Dependence on supplemental oxygen; Z79.899 Other long term (current) drug therapy; Z68.29 Body mass index [BMI] 29.0-29.9, adult
CPT/HCPCS: 36415; 36416; 36430; 71045; 80048; 80053; 82274; 82553; 83036; 83880; 84484; 85025; 85610; 85730; 86850; 86900; 86901; 93306; 94640; C9113; J1940; J2001; J2704; J3010; J7050; J7620; P9016; U0002

== ENCOUNTER 2022-08-03 13:11 | Emergency (ER) | payer MEDICARE ==
[2022-08-03 13:50] LABS: #Eosinphils 0.2 thou/uL (0.0-0.7); #Lymphocytes 0.5 thou/uL (1.20-3.40); #Monocytes 0.9 thou/uL (0.11-0.59); #Neutrophils 7.9 thou/uL (1.40-6.50); %Basophils 0.1 % (0.0-1.0); %Eosinophils 2.4 % (0.0-10.0); %Lymphocytes 5.5 % (21.0-51.0); Hemoglobin 8.4 g/dL (12.0-16.0); Mean Corpuscular Hemoglobin 26.2 pg (27.0-31.0); Mean Corpuscular Volume 90.3 fl (78.0-98.0); Mean Platelet Volume 8.9 fL (7.4-10.4); Platelet Count 257 10x3/uL (130-400); RBC Distribution Width 17.3 % (11.5-14.5); Red Blood Cell (RBC) Count 3.19 mill/uL (4.20-5.40); White Blood Cell (WBC) Count 9.6 10x3/uL (4.8-10.8)
[2022-08-03 14:09] LABS: ALT (SGPT) 10 U/L (8-55); AST (SGOT) 28 U/L (5-34); Alkaline Phosphatase 129 U/L (40-110); Anion Gap 11 mmol/L (10-20); BUN (Urea Nitrogen) 57 mg/dL (9.8-20.1); Bilirubin, Total 1.1 mg/dL (0.2-1.2); Calc. Creatinine Clearance 0 mL/min (70-130); Calcium 8.4 mg/dL (7.8-10.44); Carbon Dioxide 26 mmol/L (23-31); Chloride 105 mmol/L (98-107); Estimated GFR 25; Globulin 4.1 g/dL (2.4-3.5); Potassium 4.3 mmol/L (3.5-5.1); Protein, Total 7.1 g/dL (5.8-8.1); Sodium 138 mmol/L (136-145)
[2022-08-03 14:21] LABS: Glucose 41 mg/dL (83-110)
[2022-08-03 15:56] LABS: Bacteria/HPF 4+ HPF (None Seen); Bilirubin Negative (Negative); Blood, Urine Negative (Negative); Clarity Turbid (Clear); Glucose, Urine (Dipstick) Normal (Negative); Ketone, Urine Negative (Negative); Leukocyte 500 Leu/uL (Negative); Nitrite Negative (Negative); Protein, Urine (Dipstick) 100 mg/dL (Neg-Trace); Specific Gravity, Urine 1.014 (1.002-1.036); Squamous Epithelial 0-3 HPF (0-3); Urobilinogen Normal mg/dL (Less than 2); pH, Urine 8.5 (5.0-9.0)
[2022-08-03] MEDS ORDERED: cefTRIAXone\\ROCEPHIN 1 GM VIAL ONE (16:04)
[2022-08-03 16:07] LABS: RBC/HPF 0-3 HPF (0-3)
[2022-08-03 16:08] LABS: Triple Phosphate Crystal Rare HPF (None Seen)
== END 2022-08-03 17:09 | disposition home or self-care (01) ==
LOC: ERS 13:11
DX: J06.9 Acute upper respiratory infection, unspecified (principal); E11.649 Type 2 diabetes mellitus with hypoglycemia without coma; E78.00 Pure hypercholesterolemia, unspecified; I11.0 Hypertensive heart disease with heart failure; I50.9 Heart failure, unspecified; Z79.84 Long term (current) use of oral hypoglycemic drugs
CPT/HCPCS: 36415; 36416; 80053; 81003; 81015; 85025; 87086; 93005; 94760; 96361; 96365; J0696